=== PATIENT | female | born 1935 | race Caucasian/White ===

== ENCOUNTER 2023-07-16 08:38 | Outpatient (OUT) | payer MEDICARE, OTHER, SELFPAY ==
--- NOTE | 2023-07-16 | XR_ITS ---
The [address] [address] Patient Name: VANE PARIS MRN: [id number] date: 1935 Sex: F Assigned Patient Location: Current Patient Location: Accession/Order Number: [id number] Exam Date: 07/16/2023 09:00 Report Date: 07/16/2023 21:46 At the request of: EFREN GRANADOS Procedure: XR foot LT min 3V EXAM: XR foot LT min 3V HISTORY: LEFT FOOT ULCER COMPARISON: None. TECHNIQUE: 3 views left foot FINDINGS: Diffuse osseous demineralization. No acute fracture or aggressive osseous abnormality. Joint spaces and alignment are preserved. No definite osseous erosion to suggest osteomyelitis. XR/XR foot LT min 3V IMPRESSION: No definite osseous erosion to suggest osteomyelitis. Consider MRI as a more sensitive modality. Electronically authenticated by: NATASHA MA Date: 07/16/2023 21:46
== END 2023-07-16 08:39 | disposition home or self-care (01) ==
LOC: WC 08:38
PROVIDERS: PCP Family Medicine; Visit Provider Podiatrist Foot & Ankle Surgery
DX: L97.421 Non-pressure chronic ulcer of left heel and midfoot limited to breakdown of skin (principal)
CPT/HCPCS: 73630; G0463

== ENCOUNTER 2023-07-30 11:24 | Outpatient (OUT) | payer MEDICARE, OTHER, SELFPAY | END 2023-07-30 11:25 | disposition home or self-care (01) | LOC: WC 11:24 | PROVIDERS: PCP Family Medicine; Visit Provider Podiatrist Foot & Ankle Surgery | DX: L97.421 Non-pressure chronic ulcer of left heel and midfoot limited to breakdown of skin (principal) | CPT/HCPCS: G0463 ==

== ENCOUNTER 2023-09-03 10:23 | Outpatient (OUT) | payer MEDICARE, OTHER, SELFPAY | END 2023-09-03 10:24 | disposition home or self-care (01) | LOC: WC 10:23 | PROVIDERS: PCP Family Medicine; Visit Provider Podiatrist Foot & Ankle Surgery | DX: L97.421 Non-pressure chronic ulcer of left heel and midfoot limited to breakdown of skin (principal) | CPT/HCPCS: 11042 ==

== ENCOUNTER 2023-09-10 14:11 | Outpatient (OUT) | payer MEDICARE, OTHER, SELFPAY ==
--- NOTE | 2023-09-10 14:16 | ECG_ITS ---
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
== END 2023-09-10 14:12 | disposition home or self-care (01) ==
LOC: PST 14:12
PROVIDERS: PCP Family Medicine; Visit Provider Podiatrist Foot & Ankle Surgery
DX: Z01.810 Encounter for preprocedural cardiovascular examination (principal); R22.9 Localized swelling, mass and lump, unspecified
CPT/HCPCS: 93005

== ENCOUNTER 2023-09-20 07:40 | Day surgery (SDC) | payer MEDICARE, OTHER, SELFPAY ==
[2023-09-10 14:37] VITALS: BP 108/73; PULSE 92; RESP 16; TEMP 36; O2SAT 95; BMI 21.6
[2023-09-20] VITALS (10 sets, daily range): BP systolic 134–157; BP diastolic 78–106; PULSE 84–96; RESP 12–20; TEMP 36.3–36.4; O2SAT 94–99
[2023-09-20 08:03] LABS: Glucometer 78 mg/dL (74-106)
--- NOTE | 2023-09-20 08:06 | PC.NURSE ---
TIA on 09/16/2023; all tests negative and no exterminator termite affects
[2023-09-20] MEDS: LACTATED RINGER'S SOLUTION 1,000 ML 50 ML IV (08:18)
[2023-09-20] MEDS: CEFAZOLIN SODIUM/DEXTROSE,ISO 2 GM/50 ML PIGGYBACK IV (09:43)
[2023-09-20] MEDS: LIDOCAINE HCL 1% 100 MG/10 ML MDV INJ (10:12)
[2023-09-20] MEDS: BUPIVACAINE HCL 0.5% PF 50 MG/10 ML VIAL INJ (10:41)
[2023-09-20 11:01] LABS: Glucometer 74 mg/dL (74-106)
--- NOTE | 2023-09-20 11:08 | P.ORON_ITS ---
Brief Operative Note Date of procedure: 09/20/23 Pre-op diagnosis: left foot soft tissue mass with surgical wound Post-op diagnosis: same as pre-op Procedure: PROCEDURES PERFORMED: excision of left foot soft tissue mass of 2 cm, excision of left foot wound with delayed primary closure INTRAOPERATIVE FINDINGS: Preoperative wound measurements 0.9 x 0.2 x 0.2 cm. upon excision of the wound there was viscous fluid encountered mixed with mucinous material which was consistent with sebaceous type cyst versus infection. there was less than 1 cm of surrounding erythema which was faint and did was once the cyst was drained. The cyst did seemingly communicate with the adjacent tarsal joint and was in close proximity of the lateral extensor tendon. PROCEDURE IN DETAIL: Patient was identified in pre op and consent was reviewed. Correct side and site were identified and marked. Pre-op antibiotics were started. Patient was brought to OR suite and place on table in a supine position. General anesthesia was administered. Tourniquet applied. Operative extremity was prepped and draped in usual sterile fashion. Formal time-out was performed and the foot/ankle were elevated for several minutes and the tourniquet was inflated. Utilizing a scalpel, the wound on the left dorsal lateral foot was excised in a 3:1 ellipse. clear viscous mixed with yellow mucinous fluid/material was evacuated. Soft tissue swabs of the fluid was obtained to be sent to microbiology. The cyst and surrounding tissue which was involved was excised and also passed the back table and sent as specimen to pathology. A stalk communicating to the adjacent tarsal joint was identified and was cauterized. The cyst was also adjacent to the lateral extensor tendon but there was no apparent communication with the tendon. Further debridement was performed to healthy granular tissue. surgical site was irrigated with copious amounts of sterile saline. The tourniquet was deflated and a prompt hyperemic response is noted. all remaining tissues did perfuse appropriately. the incision was then c losed in a single layer using skin suture without the need for undermining and was closed without tension. A dry sterile dressing consisting of Xeroform on the incisions followed by 4 x 4 gauze, and Kerlix were applied. an Juan wrap from the forefoot to the distal leg was then loosely applied followed by a surgical shoe Capillary refill time to all digits was evaluated and had appropriate response. Patient tolerated the procedure and anesthesia well transferred to the recovery room with vital signs stable and brisk capillary refill to the toes. POSTOPERATIVE PLAN: Discharge home under family's care Post op instructions provided verbally and written prescription(s) were placed in chart weightbearing as tolerated in surgical shoe for three weeks or until the incision is healed Follow-up in 1 week Implants: none Surgeon: Robert Rodrigues Route Delivery Driver: Keyur Mcdonald Estimated blood loss (mL): 10 Pathology: other (tissue swabs to microbiology and soft tissue mass to pathology) Disposition: PACU Preoperative Details Reason for procedure: patient is an 88-year-old female who underwent excision of a ganglion on her left foot by outside surgeon on 04/08/23. She presents me a couple of months ago relating that the incision never completely healed and regularly has thick clear viscous fluid draining from the wound. Her 1st examination distally was consistent with a ganglion. We initially attempted local wound care however her issue continued to wax and wane and the pain and irritation was affecting activities daily living and she wished to proceed with surgical revision. I recommended excision of the wound and soft tissue mass with delayed primary closure. I educated her and potential risks and benefits and all questions were answered to her satisfaction.
[2023-09-20] MEDS: OXYCODONE HCL/ACETAMINOPHEN 5MG/325MG 1 TAB PO (11:17)
== END 2023-09-20 12:40 | disposition home or self-care (01) ==
PROVIDERS: PCP Family Medicine; Visit Provider Podiatrist Foot & Ankle Surgery
PROC: (CPT 28039; principal; 2023-09-20 08:55)
DX: T81.32XA Disruption of internal operation (surgical) wound, not elsewhere classified, initial encounter (principal); M79.9 Soft tissue disorder, unspecified; M67.472 Ganglion, left ankle and foot; R22.42 Localized swelling, mass and lump, left lower limb; Z87.891 Personal history of nicotine dependence; K21.9 Gastro-esophageal reflux disease without esophagitis; E03.9 Hypothyroidism, unspecified; Z79.82 Long term (current) use of aspirin
CPT/HCPCS: 28039; 36415; 82948; 87070; 87076; 88304; 99999; J2704

== ENCOUNTER 2023-09-28 09:43 | Outpatient (OUT) | payer MEDICARE, OTHER, SELFPAY | END 2023-09-28 09:44 | disposition home or self-care (01) | LOC: WC 09:43 | PROVIDERS: PCP Family Medicine; Visit Provider Podiatrist Foot & Ankle Surgery | DX: L97.421 Non-pressure chronic ulcer of left heel and midfoot limited to breakdown of skin (principal); T81.89XA Other complications of procedures, not elsewhere classified, initial encounter | CPT/HCPCS: G0463 ==

== ENCOUNTER 2023-10-12 09:49 | Outpatient (OUT) | payer MEDICARE, OTHER, SELFPAY | END 2023-10-12 09:50 | disposition home or self-care (01) | LOC: WC 09:50 | PROVIDERS: PCP Family Medicine; Visit Provider Podiatrist Foot & Ankle Surgery | DX: T81.89XA Other complications of procedures, not elsewhere classified, initial encounter (principal) | CPT/HCPCS: G0463 ==

== ENCOUNTER 2023-11-02 10:29 | Outpatient (OUT) | payer MEDICARE, OTHER, SELFPAY ==
--- OUTSIDE RECORDS SUMMARY | 2023-11-02 10:52 | XMS_ITS | CCD ---
Author Name Unknown Address [address] [facility] [address] [place] [address] Organization [facility] Care Team Providers Care Check Out Clerk Name Role Phone CARMINA, SUHA M Primary Care Physician Carmina, Suha Unavailable Carmina, DO Suha M. Primary Care Provider Carmina, DO Suha M. Attending Provider [phone] Carmina, DO Suha M. Primary Care Provider MD Glory Blake Attending Provider Glory Blake Attending Unavailable Petitti, Glory Manuel Admitting Unavailable Carmina, Suha M. Primary Care Unavailable Carmina, Suha M. Admitting Unavailable Carmina, Suha M. Attending Unavailable Carmina, Suha M. Primary Care Unavailable DAVID ZAVALA Attending Unavailabl e CARMINA, SUHA M Admitting Unavailable CARMINA, SUHA M Attending Unavailable CARMINA, SUHA M Attending Unavailable CARMINA, SUHA M Admitting Unavailable Dolce Adelfo Singh Admitting Unavailable Dolce, Adelfo Singh Attending Unavailable ALAHMAD, Alaa Admitting Unavailable ALAHMAD, Alaa Attending Unavailable Miller Waggoner. Attending Unavailable DAVID ZAVALA Admitting Unavailabl e DAVID ZAVALA Attending Unavailabl e CARMINA, SUHA M Admitting Unavailable CARMINA, SUHA M Attending Unavailable CARMINA, SUHA M Referring Unavailable Allergies Allergy Classification Reported Allergen(s) Allergy Type Date of Onset Reaction(s) Facility (20 sources) Alendronate; Translations: [alendronate] Drug Allergy constipation [facility] (10 sources) influenza A virus A/[place]/GP190 06/2015 (H1N1) antigen / influenza A virus A/[place]/GP205 (H3N2) antigen / influenza B virus B/Mares antigen / influenza B virus B/ antigen; Translations: [influenza virus vaccine] Drug Allergy Diarrhea [facility] (5 sources) Pneumococcal Vaccines; Translations: [pneumococcal vaccines] Drug allergy arm swelling [facility] (14 sources) flu shot Propensity to adverse reactions vomiting and diarrhea [facility] Other (1 source) Vaccine product containing only Streptococcus pneumoniae antigen (medicinal product) Drug allergy arm swelling [facility] Other (9 sources) Vaccine product containing Streptococcus pneumoniae antigen (medicinal product) Drug allergy arm swelling [facility] Other (3 sources) Streptococcus pneumoniae capsular polysaccharide antigen (substance); Translations: [pneumococcal vaccines] Drug allergy Persistent erythema (finding), Swelling (morphologic abnormality) [facility] (1 source) No Known Medication Allergies; Translations: [No Known Medication Allergies] Propensity to adverse reactions (disorder) [facility] Medications Current Medications Medication Drug Class(es) Dates Sig (Normalized) Sig (Original) 8 hr acetaminophen 650 mg extended release oral tablet (20 sources) Start: 06-08-2022 take 1 tablet by mouth every eight hours as needed for pain Tylenol 8 Hour Caplet 650 mg oral tablet, extended release 650 mg = 1 tab(s), Oral, q8hr, PRN as needed for pain, Refills(s) 0 Start Date: 06/08/22 Status: Ordered Acetaminophen 8 Hour 650 MG 2 tablets as needed Orally at HS Active acetaminophen 325 mg / traMADol hydrochloride 37.5 mg oral tablet (2 sources) Opioid Agonist Start: 02-05-2018 take 1 tablet by mouth every four hours as needed for pain Ultracet 325 mg-37.5 mg Tab 1 tab(s), Oral, q4hr as needed for pain, 10 tab(s), Refill(s) 0 Start Date: 02/05/18 Status: Ordered aspirin 81 mg oral tablet (20 sources) Platelet Aggregation Inhibitor, Nonsteroidal Anti-inflammatory Drug Start: 04-05-2015 take 1 tablet by mouth once daily aspirin 81 mg oral tablet 81 mg = 1 tab(s), Oral, Daily, Refills(s) 0, Prophylaxis Start Date: 04/05/15 Status: Ordered take 1 tablet by [facility] every twenty-four hours Aspirin 81 MG 1 tablet Orally Once a day Active benzonatate 100 mg oral capsule (2 sources) Non-narcotic Antitussive Start: 10-10-2023 End: 10-17-2023 take 1 capsule by mouth three times daily Tessalon 100 mg Cap 100 mg = 1 cap(s), Oral, TID, X 7 day(s), # 21 cap(s), Refills(s) 0, Pharmacy: [facility], 154.9, cm, 10/10/23 10:01:00 EST, Height/Length Dosing, 50.2, kg, 10/10/23 10:01:00 EST, Weight Dosing Start Date: 10/10/23 Stop Date: 10/17/23 Status: Ordered celecoxib 200 mg oral capsule (2 sources) Nonsteroidal Anti-inflammatory Drug Start: 02-05-2018 take 1 capsule by mouth once daily CeleBREX 200 mg Cap 200 mg = 1 cap(s), Oral, Daily, # 6 cap(s), Refills(s) 0 Start Date: 02/05/18 Status: Ordered cephalexin 500 mg oral capsule (4 sources) Cephalosporin Antibacterial Start: 10-10-2023 cephalexin 500 mg Cap Refills(s) 0 Start Date: 10/10/23 Status: Ordered Start: 09-13-2023 End: 09-20-2023 take 1 capsule by mouth every twelve hours cephalexin 500 mg Cap 500 mg = 1 cap(s), Oral, q12hr, X 7 day(s), Refills(s) 0 Start Date: 09/13/23 Stop Date: 09/20/23 Status: Ordered Start: 06-26-2023 take 1 capsule by [facility] every twelve hours Keflex 500 mg Cap 500 mg = 1 cap(s), Oral, q12hr, # 20 cap(s), Refills(s) 0, Pharmacy: [facility], 155, cm, 06/26/23 16:10:00 EDT, Height/Length Dosing, 53.8, kg, 06/26/23 16:10:00 EDT, Weight Dosing Start Date: 06/26/23 Status: Ordered chlorpheniramine maleate 4 mg oral tablet (13 sources) Histamine-1 Receptor Antagonist take 1 tablet by mouth every six hours Allergy 4 MG 1 tablet as needed Orally every 6 hrs Active cholecalciferol 0.05 mg oral tablet (13 sources) Vitamin D take 1 tablet by mouth every twenty-four hours Vitamin D 50 MCG (1999 UT) 1 tablet Orally Once a day Active doxycycline hyclate 100 mg oral capsule (2 sources) Tetracycline-class Drug Start: End: take 1 capsule by mouth twice daily doxycycline hyclate 100 mg Cap 100 mg = 1 cap(s), Oral, BID, X 7 day(s), # 14 cap(s), Refills(s) 0, Pharmacy: [facility], 154.9, cm, 10/10/23 10:01:00 EST, Height/Length Dosing, 50.2, kg, 10/10/23 10:01:00 EST, Weight Dosing Start Date: 10/10/23 Stop Date: 10/17/23 Status: Ordered Fish Oils (2 sources) Start: take 1 capsule by mouth once daily Fish Oil 1000 mg oral capsule 1,000 mg = 1 cap(s), Oral, Daily, Refills(s) 0, Prophylaxis Start Date: 04/05/15 Status: Ordered Ibuprofen (6 sources) Nonsteroidal Anti-inflammatory Drug Start: take 1 tablet by mouth once daily at bedtime Ibuprofen PM 1 tab, Oral, Once a day (at bedtime) Insomnia, Refill(s) 0, Insomnia Start Date: 04/05/15 Status: Ordered levothyroxine sodium 0.025 mg oral tablet (19 sources) l-Thyroxine Start: take 1 tablet by mouth once daily levothyroxine 25 mcg (0.025 mg) Tab 25 mcg = 1 tab(s), Oral, Daily, # 30 tab(s), Refills(s) 0 Start Date: 09/16/23 Status: Ordered take 1 tablet by eleonora th every twenty-four hours Levothyroxine Sodium 25 MCG 1 tablet Orally Once a day for 90 days Active take 1 tablet by mouth every oth er day Levothyroxine Sodium 25 MCG 1 tablet Orally every other day for 90 days Not-Taking meclizine hydrochloride 12.5 mg oral tablet (4 sources) Antiemetic Start: 06-08-2022 take 1 tablet by mouth three times daily as needed for dizziness meclizine 12.5 mg Tab 12.5 mg = 1 tab(s), Oral, TID, PRN for dizziness, # 20 tab(s), Refills(s) 0, Pharmacy: [facility], 154, cm, 06/08/22 11:30:00 EDT, Height/Length Dosing, 52, kg, 06/08/22 11:30:00 EDT, Weight Dosing Start Date: 06/08/22 Status: Ordered Multi Vitamins oral tablet (3 sources) Start: 09-16-2023 Multi Vitamins oral tablet 1 tab(s), Oral, Daily, 30 tab(s), Refill(s) 0 Start Date: 09/16/23 Status: Ordered Multivitamin preparation (7 sources) take 1 tablet by mouth once daily Multivitamin - 1 tablet Orally Once a day Active 12 hr orphenadrine citrate 100 mg extended release oral tablet (2 sources) Muscle Relaxant Start: 09-20-2018 take 1 tablet by mouth twice daily for muscle spasms orphenadrine 100 mg ER Tab 100 mg = 1 tab(s), Oral, BID, For spasm and tenderness, # 10 tab(s), Refills(s) 0 Start Date: 09/20/18 Status: Ordered POLYETHYLENE GLYCOL 3350 (14 sources) Osmotic Laxative take 0.5 capsule by mouth once daily MiraLax - 1/2 cap Orally Once a day Active MiraLax - as dir ected Orally prn Active MiraLax - as dir ected Orally Active vitamin b12 1 mg oral tablet (8 sources) Vitamin B12 Start: 09-16-2023 cyanocobalamin 1000 mcg Tab 1,000 mcg = 1 tab(s), Oral, TueThSaSu, # 90 tab(s), Refills(s) 0 Start Date: 09/16/23 Status: Ordered Start: 06-08-2022 cyanocobalamin 1000 mcg oral tablet 1,000 mcg = 1 tab(s), Oral, MonTuThSa, # 30 tab(s), Refills(s) 0 Start Date: 06/08/22 Status: Ordered Start: 06-08-2022 cyanocobalamin 1000 mcg oral tablet 1,000 mcg = 1 tab(s), Oral, MonTuThSa, # 30 tab(s), Refills(s) 0 Start Date: 06/08/22 Status: Ordered take 1 tablet by eleonora th every other day Vitamin B12 1000 MCG 1 tablet Orally every other day Active Vitamin B12 1000 MCG (13 sources) take 1 tablet by eleonora th every other day Vitamin B12 1000 MCG 1 tablet Orally every other day Active take 1 tablet by mouth once asya y Vitamin B12 1000 MCG 1 tablet Orally Once a day Active Vitamin D 400 IU (9 sources) Start: 04-05-2015 Vitamin D 400 IU 400 International_Unit, Oral, Daily, Refills(s) 0, Prophylaxis Start Date: 04/05/15 Status: Ordered Completed/Discontinued Medications Medication Drug Class(es) Dates Sig (Normalized) Sig (Original) B-12 - up to 1000 mcg (20 sources) Start: 04-12-2019 B-12 - up to 1000 mcg Apr, 1 mL Start: 03-10-2019 B-12 - up to 1 000 mcg March, 1000 mcg Start: 02-08-2019 B-12 - up to 1 000 mcg Jan, 1000 mcg Problems Active Problems Problem Classification Problem Date Documented Date Episodic/Chronic Acute bronchitis (3 sources) Acute bronchitis; Translations: [Acute bronchitis, unspecified] Onset: 10-10-2023 Episodic Bacterial infection; unspecified site (1 source) Bacterial infectious disease; Translations: [Other specified bacterial agents as the cause of diseases classified elsewhere] Onset: 10-10-2023 Episodic Cancer; other and unspecified primary (2 sources) H/O Malignant melanoma 10-10-2023 Episodic Chronic ulcer of skin (2 sources) 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 Conditions associated with dizziness or vertigo (16 sources) Dizziness; Translations: [Dizziness and giddiness] Onset: 04-09-2022 Resolved: 04-09-2022 Episodic Delirium, dementia, and amnestic and other cognitive disorders (1 source) Postconcussion syndrome; Translations: [Postconcussional syndrome] Onset: 06-08-2022 Chronic Disorders of lipid metabolism (18 sources) Pure hypercholesterolemia; Translations: [Pure hypercholesterolemia, unspecified] Onset: 09-16-2023 Chronic E Codes: Fall (1 source) Fall; Translations: [Unspecified fall, initial encounter] Onset: 05-26-2022 Episodic E Codes: Fall (9 sources) Fall 12-05-2019 Esophageal disorders (14 sources) Gastroesophageal reflux disease without esophagitis; Translations: [Gastro-esophageal reflux disease without esophagitis] Chronic Genitourinary congenital anomalies (14 sources) Renal agenesis and dysgenesis; 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, 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 Malaise and fatigue (14 sources) Fatigue; Translations: [Chronic fatigue, unspecified] Onset: 05-29-2022 Resolved: 05-29-2022 Chronic Malaise and fatigue (1 source) Other fatigue Episodic Mycoses (14 sources) Onychomycosis; Translations: [Tinea unguium] Episodic Nutritional deficiencies (16 sources) Vitamin D deficiency; Translations: [Vitamin D deficiency, unspecified] Onset: 04-09-2022 Resolved: 04-09-2022 Chronic Nutritional deficiencies (14 sources) Cobalamin deficiency; Translations: [Deficiency of other specified B group vitamins] Episodic Open wounds of extremities (7 sources) Open wound of left foot; Translations: [Unspecified open wound, left foot, initial encounter] Onset: 06-26-2023 Episodic Osteoarthritis (2 sources) Arthritis 10-10-2023 Chronic Other connective tissue disease (14 sources) Recurrent falls ; Translations: [Repeated falls] Episodic Other ear and sense organ disorders (14 sources) Hearing loss; Translations: [Unspecified hearing loss, right ear] Chronic Other ear and sense organ disorders (2 sources) Deafness of right ear 10-10-2023 Chronic Other hereditary and degenerative nervous system conditions (14 sources) Essential tremor; Translations: [Essential tremor] Chronic Other injuries and conditions due to external causes (2 sources) Injury of head; Translations: [Unspecified injury of head, initial encounter] Onset: 05-26-2022 Episodic Other upper respiratory infections (5 sources) Acute sinusitis, unspecified; Translations: [Acute bacterial sinusitis] Onset: 10-10-2023 Episodic Residual codes; unclassified (14 sources) Difficulty sleeping ; Translations: [Sleep disorder, unspecified] Episodic Substance-related disorders (9 sources) Smoker 02-05-2018 Chronic Comment on above: Added secondary to d ocumentation in Social History. 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, unspecified] Onset: 09-16-2023 12-05-2019 Chronic Unclassified (1 source) Infection following a procedure, superficial incisional surgical site, initial encounter; Translations: [Infection following a procedure, superficial incisional surgical site, initial encounter] Onset: 11-23-2022 Unclassified (2 sources) H/O: Bilateral cataract extraction 10-10-2023 Unclassified (2 sources) Open wound of left foot Onset: 06-26-2023 10-10-2023 Past or Other Problems Problem Classification Problem Date Documented Da te Episodic/Chronic Intracranial injury (1 source) Concussion without loss of consciousness, initial encounter Onset: 06-15-2022 Resolved: 06-15-2022 Episodic Spondylosis; intervertebral disc disorders; other back problems (1 source) Cervicalgia; Translations: [Cervicalgia] Onset: 07-09-2022 Episodic Sprains and strains (2 sources) Neck sprain; Translations: [Sprain of joints and ligaments of unspecified parts of neck, initial encounter] Onset: 05-26-2022 Resolved: 06-15-2022 Episodic Results Test Name Value Interpretation Reference Range Facility Family Medicine Office/Clini c Noteon 10-10-2023 Family Medicine Office/Clinic Note Chief Complaint New pt HPI Staff Vane, 88 yo female here today with cough, runny nose, phlegm Symptoms began 09/27 Complains of cough, runny nose, sore throat, pressure in ears when coughing, fever, chills, fatigue Pt states cough feels better today Pt has been taking cefalexin Pt had surgery on foot 09/20 History of Present Illness Reviewed and agree with above documented HPI by biomedical engineering professor. Portions of this record may have been created with voice recognition artificial intelligence software, specifically [employer], [employer] and or [employer]. Substitutions may have occurred due to the inherent limitations of voice recognition and artificial intelligence software. Patient is a 88-year-old female who presents to [facility], with her son, with sinus issues, sinus pressure, sore throat, bilateral ear pressure, and a nonproductive cough with fatigue, that started on September 27, 2023, patient states currently on Keflex, for foot surgical procedure that was done, talk to her primary care doctor they informed her just continue with the Keflex, relief, then she was placed on cefadroxil, not have any relief with this antibiotics as well. Patient denies having any worsening fevers, chills, worsening headache of her life, dizziness, nausea or vomiting, difficulty swallowing, productive cough, chest pain, dyspnea exertion, or weakness. Review of Systems PHQ Score Initial Depression Screen Score: 0 SCORE Physical Exam Vitals & Measurements T: 36.4 ?C(Oral) HR: 96(Peripheral) BP: 106/62 SpO2: 96% HT: 61 in HT: 154.9 cm WT: 50.2 kg WT: 110.44 lb BMI: 20.92 General: Well developed, well nourished, in no acute distress, patient does appears ill but not septic, no respiratory distress is noted. Patient answers questions appropriately and in complete sentences, and follows commands appropriately. No facial droop, slurred speech, or difficulty swallowing is noted. Head: Normocephalic/atrauma tic, positive bilateral maxillary and positive bilateral frontal sinus tenderness and pressure with palpation. No facial swelling cellulitis. Eyes: Pupils equal, round, and reactive to light. Conjunctivae and sclerae normal, Ears: Bilateral TMs are bulging, left greater than right, no signs otitis media otitis externa. Prominent hearing loss on the right. Left hearing is intact. Nose: No deformity, discharge, inflammation, or lesions Mouth: Mucous membranes moist. Normal oropharynx, and posterior pharynx without erythremia, lesions, exudates, or enlarged tonsils. No trismus or difficulty swallowing is noted. Neck: Neck supple. No masses or palpable cervical nodes. Trachea midline. No mastoid tenderness. Lungs: Normal respiratory effort and clear to auscultation throughout, no wheezing, rales, crackles, or decreased breath sounds. Cardio: regular rate and rhythm, no murmur, no chest wall tenderness. Extremity: Patient is able to move all 4 extremities equally without any pain or weakness. Neurologic: Grossly normal Skin: No rashes, ulcerations, or suspicious lesions Lymph Nodes: no lad Mental Status: alert, active Assessment/Plan Discuss with patient and her son she is negative for COVID-19 and patient and imaging findings read by the radiologist: There are no acute cardiopulmonary changes . 88-year-old female presented to [facility], for acute bacterial sinusitis, acute bronchitis, symptoms started 2 weeks ago, was on Keflex for a foot surgical procedure, did not do well with Keflex, continue symptoms, patient did appear ill but not septic, no difficulty swallowing, and no respiratory distress, no breathing treatment or steroids were indicated at this time. Patient was given a prescription for doxycycline and Tessalon Perles, instructed to monitor her temperature, take [id number] Tylenol as needed for fevers and bodyaches, drink plenty water stay hydrated, follow-up primary care provider. 1. Acute bacterial sinusitis (J01.90: Acute sinusitis, unspecified) See above Ordered: doxycycline, 100 mg = 1 cap(s), Oral, BID, X 7 day(s), # 14 cap(s), Refills(s) 0, Pharmacy: [facility], 154.9, cm, 10/10/23 10:01:00 EST, Height/Length Dosing, 50.2, kg, 10/10/23 10:01:00 EST, Weight Dosing Rapid COVID POC 85992 Rapid COVID POC 41466 2. Acute bronchitis (J20.9: Acute bronchitis, unspecified) See above Ordered: benzonatate, 100 mg = 1 cap(s), Oral, TID, X 7 day(s), # 21 cap(s), Refills(s) 0, Pharmacy: [facility], 154.9, cm, 10/10/23 10:01:00 EST, Height/Length Dosing, 50.2, kg, 10/10/23 10:01:00 EST, Weight Dosing Rapid COVID POC 60903 XR Chest 2 Views Other specified bacterial agents as the cause of diseases classified elsewhere (B96.89: Other specified bacterial agents as the cause of diseases classified elsewhere) Follow-up With When Contact Information SUHA GREWAL DO, [facility] [address], [facility] [address] [place] [address]- Additional Instructions: Patient (more content not included)... Normal [facility] Comment on above: Result Comment: Elec tronically Signed By: SALLY HERNANDEZ, KERVIN\.br\Date and Time Signed: 10/10/23 11:07 EST Patient Educationon 10-10-20 Patient Education Infectious Disease Sinus Infection, Adult A sinus infection is soreness and swelling (inflammation) of your sinuses. Sinuses are hollow spaces in the bones around your face. They are located: ? Around your eyes. ? In the middle of your forehead. ? Behind your nose. ? In your cheekbones. Your sinuses and nasal passages are lined with a fluid called mucus. Mucus drains out of your sinuses. Swelling can trap mucus in your sinuses. This lets germs (bacteria, virus, or fungus) grow, which leads to infection. Most of the time, this condition is caused by a virus. What are the causes? ? Allergies. ? Asthma. ? Germs. ? Things that block your nose or sinuses. ? Growths in the nose (nasal polyps). ? Chemicals or irritants in the air. ? A fungus. This is rare. What increases the risk? ? Having a weak body defense system (immune system). ? Doing a lot of swimming or diving. ? Using nasal sprays too much. ? Smoking. What are the signs or symptoms? The main symptoms of this condition are pain and a feeling of pressure around the sinuses. Other symptoms include: ? Stuffy nose (congestion). This may make it hard to breathe through your nose. ? Runny nose (drainage). ? Soreness, swelling, and warmth in the sinuses. ? A cough that may get worse at night. ? Being unable to smell and taste. ? Mucus that collects in the throat or the back of the nose (postnasal drip). This may cause a sore throat or bad breath. ? Being very tired (fatigued). ? A fever. How is this diagnosed? ? Your symptoms. ? Your medical history. ? A physical exam. ? Tests to find out if your condition is short-term (acute) or long-term (chronic). Your doctor may: ? Check your nose for growths (polyps). ? Check your sinuses using a tool that has a light on one end (endoscope). ? Check for allergies or germs. ? Do imaging tests, such as an MRI or CT scan. How is this treated? Treatment for this condition depends on the cause and whether it is short-term or long-term. ? If caused by a virus, your symptoms should go away on their own within 10 days. You may be given medicines to relieve symptoms. They include: ? Medicines that shrink swollen tissue in the nose. ? A spray that treats swelling of the nostrils. ? Rinses that help get rid of thick mucus in your nose (nasal saline washes). ? Medicines that treat allergies (antihistamines). ? Mgpf-wvm-mggyral pain relievers. ? If caused by bacteria, your doctor may wait to see if you will get better without treatment. You may be given antibiotic medicine if you have: ? A very bad infection. ? A weak body defense system. ? If caused by growths in the nose, surgery may be needed. Follow these instructions at home: Medicines ? Take, use, or apply [id number] and prescription medicines only as told by your doctor. These may include nasal sprays. ? If you were prescribed an antibiotic medicine, take it as told by your doctor. Do not stop taking it even if you start to feel better. Hydrate and humidify ? Drink enough water to keep your pee (urine) pale yellow. ? Use a cool mist humidifier to keep the humidity level in your home above 50%. ? Breathe in steam for 10?15 minutes, 3?4 times a day, or as told by your doctor. You can do this in the bathroom while a hot shower is running. ? Try not to spend time in cool or dry air. Rest ? Rest as much as you can. ? Sleep with your head raised (elevated). ? Make sure you get enough sleep each night. General instructions ? Put a warm, moist washcloth on your face 3?4 times a day, or as often as told by your doctor. ? Use nasal saline washes as often as told by your doctor. ? Wash your hands often with soap and water. If you cannot use soap and water, use hand photography coordinator. ? Do not smoke. Avoid being around people who are smoking (secondhand smoke). ? Keep all follow-up visits. Contact a doctor if: ? You have a fever. ? Your symptoms get worse. ? Your symptoms do not get better within 10 days. Get help right away if: ? You have a very bad headache. ? You cannot stop vomiting. ? You have very bad pain or swelling around your face or eyes. ? You have trouble seeing. ? You feel confused. ? Your neck is stiff. ? You have trouble breathing. These symptoms may be an emergency. Get help right away. Call 911. ? Do not wait to see if the symptoms will go away. ? Do not drive yourself to the hospital. Summary ? A sinus infection is swelling of your sinuses. Sinuses are hollow spaces in the bones around your face. ? This condition is caused by tissues in your nose that become inflamed or swollen. This traps germs. These can lead to infection. ? If you were prescribed an antibiotic medicine, take it as told by your doctor. Do not stop taking it even if you start to feel better. ? Keep all follow-up visits (more content not included)... Normal [facility] XR Chest 2 Viewson 3 XR Chest 2 Views Exam Date/Time: 10/10/2023 10:41 EST Reason for Exam: Cough Report IMPRESSION: There are no acute cardiopulmonary changes. CLINICAL HISTORY: Cough EXAMINATION: XR Chest 2 Views COMPARISON: Chest x-ray from 12/05/2019 FINDINGS: The cardiomediastinal silhouette is unremarkable. The lungs are free of infiltrates effusions or consolidations. There is a calcified granuloma in the midportion of the right lung. There are no acute osseous changes. Ordering Provider: KERVIN ZAVALA FINAL REPORT Dictated: 10/10/2023 10:48 am Maurizio Samaniego MD, V. Signed (Electronic Signature): 10/10/2023 10:48 am Signed by: Maurizio Samaniego MD, V. Transcribed by: RADHA Technologist: ALONSO Technical Comments Radiation Dose: Ka,r in mGy = na DAP = na Normal [facility] Insurance Correspondence Off iceon 09-20-2023 Insurance Correspondence Office [id number]# 1.00TIFF Normal [facility] CHEMISTRYOrdered By: SYSTEM SYSTEM on 09-17-2023 Cholesterol [Mass/Vol] 185 mg/dL Normal 120 - 200 mg/dL [facility] Remisol Cholesterol in HDL [Mass/Vol] 37 mg/dL Invalid Interpretation Code [facility] Remisol Comment on above: Interpretive Data: H DL > or equal to 60 mg/dL: Low cardiovascular risk HDL < 40 mg/dL : High cardiovascular risk Cholesterol in LDL [Mass/Vol] 125 mg/dL Normal <=129mg/dL [facility] Remisol Cholesterol in VLDL [Mass/Vol] 18 mg/dL Normal 7 - 40 mg/dL [facility] Remisol Triglyceride [Mass/Vol] 88 mg/dL Normal <=149mg/dL [facility] Remisol Discharge Instructionson Discharge Instructions [id number]# 1.00TIFF Normal [facility] Discharge Note-Nursingon Discharge Note-Nursing VANE PARIS :1935 Visit Date:09/16/2023 Inpatient Discharge Instructions Your Care Team Admitting Physician - Diane SILVA MD Reason for Your Visit Pt was at [facility]. When she went to get her hair washed in the sink her neck cracked on the sink's bowl. She reported feeling a fullness in her head and dizzy upon standing. After sitting down for a while she went to get up and was too weak. Your Diagnosis Dizziness of unknown cause Hyperthyroidism TIA - Transient ischaemic attack Hyperlipidemia Altered gait Medical screening exam Neck pain Tests Performed Automated Diff BMP CBC w/ Auto Diff eGFR Lipid Panel PT & PTT Urinalysis with Culture Reflex Cervical Spine CT w/o Contrast CTA Head CTA Neck MRI Brain w/o Contrast This Is Your Medications List acetaminophen (Tylenol 8 Hour Caplet 650 mg oral tablet, extended release) aspirin (aspirin 81 mg oral tablet) cephalexin (cephalexin 500 mg Cap) cholecalciferol (Vitamin D 400 IU) cyanocobalamin (cyanocobalamin 1000 mcg Tab) levothyroxine (levothyroxine 25 mcg (0.025 mg) Tab) multivitamin (Multi Vitamins oral tablet) Procedure History left eye cataract extraction with intraocular lens placement. manual dilatation of the iris with a Malyugin ring (05/27/2015), right cataract extraction with intraocular lens placement (04/08/2015). Discharge Vitals Temperature (Axillary) 36.4 ?C Heart Rate (Monitored) 88 Respiratory Rate 20 Blood Pressure 128/77 Height 154.92 cm Weight 54.9 kg BMI 22.87 What to do next Instructions From Your Doctor Event Name Event Result Discharge Activity Ambulate as tolerated Discharge Restrictions No restrictions Discharge Diet(s) Regular Pending Diagnostic Test Results None Pharmacy Information [facility] New Follow Up Appointments after Discharge Follow Up with SUHA GREWAL When: 09/28/2023 01:00 PM EST Where: [address] [facility] [address] [place] [address]- Business (1) Medications What How Much When Instructions Next Dose Unchanged acetaminophen (Tylenol 8 Hour Caplet 650 mg oral tablet, extended release) 1 Tablets By Mouth Every 8 hours as needed for as needed for pain as needed Unchanged aspirin (aspirin 81 mg oral tablet) 1 Tablets By Mouth Every day resume normal schedule Unchanged cephalexin (cephalexin 500 mg Cap) 1 Capsules By Mouth Every 12 hours Duration: 7 Days resume normal schedule Unchanged cholecalciferol (Vitamin D 400 IU) 400 International unit By Mouth Every day resume normal schedule Unchanged cyanocobalamin (cyanocobalamin 1000 mcg Tab) 1 Tablets By Mouth Wednesday, , Wednesday & Wednesday resume normal schedule Unchanged levothyroxine (levothyroxine 25 mcg (0.025 mg) Tab) 1 Tablets By Mouth Every day resume normal schedule Unchanged multivitamin (Multi Vitamins oral tablet) 1 Tablets By Mouth Every day 09/18 @ 9am Test Results CBC BMP WBC: 5.7 E9/L (09/16/23 12:13:00) Glucose Lvl: 94 mg/dL (09/16/23 12:13:00) RBC: 5 E12/L (09/16/23 12:13:00) BUN: 20 mg/dL (09/16/23 12:13:00) HGB: 14.4 gm/dL (09/16/23 12:13:00) Creatinine: 0.9 mg/dL (09/16/23 12:13:00) Hct: 42.3 % (09/16/23 12:13:00) BUN/Creat Ratio: 22 High (09/16/23 12:13:00) MCV: 85.1 fL (09/16/23 12:13:00) Sodium Lvl: 138 mmol/L (09/16/23 12:13:00) MCH: 29 pg (09/16/23 12:13:00) Potassium Lvl: 4 mmol/L (09/16/23 12:13:00) MCHC: 34 gm/dL (09/16/23 12:13:00) Chloride: 103 mmol/L (09/16/23 12:13:00) RDW: 13.3 % (09/16/23 12:13:00) CO2: 25 mmol/L (09/16/23 12:13:00) Platelet: 158 E9/L (09/16/23 12:13:00) AGAP: 14 mEq/L (09/16/23 12:13:00) MPV: 8.2 fL (09/16/23 12:13:00) Calcium Lvl: 9.5 mg/dL (09/16/23 12:13:00) Allergies Fosamax (unk) Influenza Virus Vaccine (Diarrhea) pneumococcal vaccines (Persistent redness of skin, Swelling) Problems Ongoing - Any problem that you are currently receiving treatment for. Fall Hyperthyroidism Smoker TIA - Transient ischaemic attack Education Materials Dizziness Dizziness is a common problem. It is a feeling of unsteadiness or light-headedness. You may feel like you are about to faint. Dizziness can lead to injury if you stumble or fall. Anyone can become dizzy, but dizziness is more common in older adults. This condition can be caused by a number of things, including medicines, dehydration, or illness. Follow these instructions at home: Eating and drinking ? Drink enough fluid to keep your urine pale yellow. This helps to keep you from becoming dehydrated. Try to drink more clear fluids, such as water. ? Do not drink alcohol. ? Limit your caffeine intake if told to do so by your health care provider. Check ingredients and nutrition facts to see if a food or beverage contains caffeine. ? Limit your salt (sodium) intake if told to do so by your health care provider. Check ingredie (more content not included)... Normal [facility] Inpatient Clinical Summaryon 09-17-2023 Inpatient Clinical Summary [place] [id number] Clinical Summary Person Information: Name: VANE PARIS Age: 88 Years : 1935 Sex: Female PCP: SUHA GREWAL DO Marital Status: Phone: [phone] Race: White Ethnicity: Non- or Language: Eritrean Visit Id: Visit Reason: Altered gait; Medical screening exam; Neck pain; NECK PAIN Speciality: Acuity: Enc Type: Observation Med Service: Medical Arrival: 09/16/2023 11:36:11 Discharge: Dispo Type: Admitted as IP to this Hosp Address: [address] [place] [address] [address] [facility] [id number] Provider Notes: Diagnosis: 1:Dizziness of unknown cause; 2:Hyperthyroidism; 3:TIA - Transient ischaemic attack; 4:Hyperlipidemia Problems Active Hyperthyroidism Fall TIA - Transient ischaemic attack Smoker Smoking Status: Former Smoker Functional Status: Sensory Deficits: Hearing deficit, right ear History of Falls: Mobility Assistance Prior to Admission: Independent ADLs: Independent Current Level of Assistance for Self-Care/Mobility: Cognitive Status: Oriented x 3 Allergies Fosamax (unk) Influenza Virus Vaccine (Diarrhea) pneumococcal vaccines (Swelling) (Persistent redness of skin) Measurements: Height: 154.92 cm Weight: 54.9 kg Blood Pressure: 128 mmHg / 77 mmHg BMI: 22.87 kg/m2 Procedures No Procedures Documented Immunizations No Immunizations Documented This Visit Final Med List: acetaminophen (Tylenol 8 Hour Caplet 650 mg oral tablet, extended release) 1 Tablets By Mouth every 8 hours as needed as needed for pain. aspirin (aspirin 81 mg oral tablet) 1 Tablets By Mouth every day. cephalexin (cephalexin 500 mg Cap) 1 Capsules By Mouth every 12 hours for 7 Days. cholecalciferol (Vitamin D 400 IU) 400 International unit By Mouth every day. cyanocobalamin (cyanocobalamin 1000 mcg Tab) 1 Tablets By Mouth Wednesday, , Wednesday & Wednesday. levothyroxine (levothyroxine 25 mcg (0.025 mg) Tab) 1 Tablets By Mouth every day. multivitamin (Multi Vitamins oral tablet) 1 Tablets By Mouth every day. Care Team Members: Attending Physician: Diane SILVA MD Consulting Physician: Referring Physician: Follow up: With: Address: When: SUHA GREWAL [address] [place] [id number] Business (1) 09/28/2023 1:00 PM Patient Education Information: Dizziness Normal [facility] Inpatient Patient Summaryon 09-17-2023 Inpatient Patient Summary [address] [address] Patient Discharge Instructions PERSON INFORMATION Name: VANE PARIS Date of : 1935 Current Date: 09/17/2023 14:40:29 PHYSICIANS Admitting Physician: SHIRA BAIRD, Diane Primary Care Physician: SUHA GREWAL DO PCP Comment: Discharge Diagnosis: 1:Dizziness of unknown cause; 2:Hyperthyroidism; 3:TIA - Transient ischaemic attack; 4:Hyperlipidemia Condition at Discharge: Stable VANE PARIS has been given the following list of follow-up instructions, prescriptions, and patient education materials: PATIENT FOLLOW-UP INFORMATION Diet: Regular Discharge Activity: Ambulate as tolerated Discharge Restrictions: No restrictions Wound Care Instructions: Remove Your Dressing In Days Call Your Doctor For: IF UNABLE TO CONTACT YOUR PHYSICIAN AND YOU FEEL IT IS AN EMERGENCY, GO TO THE NEAREST EMERGENCY ROOM OR CALL 911 Home Treatment: Devices/Equipment: None Special Services: Additional Instructions: Primary Care Physician to provide the following pending test results: None Follow up: With: Address: When: SUHA Selby [address] [address] Business (1) 09/28/2023 1:00 PM In the event that this physician does not participate in your insurance network, please consult with your insurance company to find a nearby participating provider. Comment: IRAINA DONNA L, have received the attached patient education materials/instruction s and have verbalized understanding: Patient Signature Date Clinican/Nurse Signature Date HERE ARE THE MEDICATION CHANGES THAT OCCURRED DURING YOUR HOSPITAL STAY Medications to Continue with No Changes Other Medications acetaminophen (Tylenol 8 Hour Caplet 650 mg oral tablet, extended release) 1 Tablets By Mouth every 8 hours as needed as needed for pain. Last Dose: ____Next Dose: ____ aspirin (aspirin 81 mg oral tablet) 1 Tablets By Mouth every day. Last Dose: ____Next Dose: ____ cephalexin (cephalexin 500 mg Cap) 1 Capsules By Mouth every 12 hours for 7 Days., for 7 days starting 09/13/23 Last Dose: ____Next Dose: ____ cholecalciferol (Vitamin D 400 IU) 400 International unit By Mouth every day. Last Dose: ____Next Dose: ____ cyanocobalamin (cyanocobalamin 1000 mcg Tab) 1 Tablets By Mouth Wednesday, , Wednesday & Wednesday. Last Dose: ____Next Dose: ____ levothyroxine (levothyroxine 25 mcg (0.025 mg) Tab) 1 Tablets By Mouth every day., Daily at 8 PM Last Dose: ____Next Dose: ____ multivitamin (Multi Vitamins oral tablet) 1 Tablets By Mouth every day. Last Dose: ____Next Dose: ____ Comment: MEDICATION LIST PROVIDED FOR YOU IS A LIST OF YOUR CURRENT MEDICATIONS. PLEASE CARRY THIS WITH YOU AT ALL TIMES. acetaminophen (Tylenol 8 Hour Caplet 650 mg oral tablet, extended release) 1 Tablets By Mouth every 8 hours as needed as needed for pain. aspirin (aspirin 81 mg oral tablet) 1 Tablets By Mouth every day. cephalexin (cephalexin 500 mg Cap) 1 Capsules By Mouth every 12 hours for 7 Days. cholecalciferol (Vitamin D 400 IU) 400 International unit By Mouth every day. cyanocobalamin (cyanocobalamin 1000 mcg Tab) 1 Tablets By Mouth Wednesday, , Wednesday & Wednesday. levothyroxine (levothyroxine 25 mcg (0.025 mg) Tab) 1 Tablets By Mouth every day. multivitamin (Multi Vitamins oral tablet) 1 Tablets By Mouth every day. Pharmacy Information: [facility] Comment: PATIENT EDUCATION INFORMATION Instructions: Dizziness Dizziness is a common problem. It is a feeling of unsteadiness or light-headedness. You may feel like you are about to faint. Dizziness can lead to injury if you stumble or fall. Anyone can become dizzy, but dizziness is more common in older adults. This condition can be caused by a number of things, including medicines, dehydration, or illness. Follow these instructions at home: Eating and drinking ? Drink enough fluid to keep your urine pale yellow. This helps to keep you from becoming dehydrated. Try to drink more clear fluids, such as water. ? Do not drink alcohol. ? Limit your caffeine intake if told to do so by your health care provider. Check ingredients and nutrition facts to see if a food or beverage contains caffeine. ? Limit your salt (sodium) intake if told to do so by your health care provider. Check ingredients and nutrition facts to see if a food or beverage contains sodium. Activity ? Avoid making quick move (more content not included)... Normal [facility] Lipid Panelon 09-17-2023 Cholesterol [Mass/Vol] 185 mg/dL Normal 120-200 [facility] Comment on above: Performed By: #### 2 [id number] ####[facility] [address] [place] [address] Cholesterol in HDL [Mass/Vol] 37 mg/dL Invalid Interpretation Code [facility] Comment on above: Result Comment: HDL > or equal to 60 mg/dL: Low cardiovascular risk HDL < 40 mg/dL : High cardiovascular risk Performed By: #### 2 [id number] ####[facility] [address] [place] [address] Cholesterol in LDL [Mass/Vol] 125 mg/dL Normal <=129 [facility] Comment on above: Performed By: #### 2 [id number] ####[facility] [address] [place] [address] Cholesterol in VLDL [Mass/Vol] 18 mg/dL Normal 7-40 [facility] Comment on above: Performed By: #### 2 [id number] ####[facility] [address] [place] [address] Triglyceride [Mass/Vol] 88 mg/dL Normal <=149 [facility] Comment on above: Performed By: #### 2 [id number] ####[facility] [address] [place] [address] MRI Brain w/o Contraston MRI Brain w/o Contrast Exam Date/Time: 09/17/2023 10:37 EST Reason for Exam: Syncope/presyncope, cerebrovascular cause suspected Report IMPRESSION: NO ACUTE INTRACRANIAL PROCESS IDENTIFIED. AGE-RELATED INVOLUTIONAL CHANGES, SIMILAR TO 12/21/2019. EXAM: MRI Brain w/o Contrast DATE: 09/17/2023 10:12 AM CLINICAL HISTORY: Syncope/presyncope, cerebrovascular cause suspected. COMPARISON: Head CT and head and neck CTAs 09/16/2023, and head MRI/MRA 12/21/2019. TECHNIQUE: Multiplanar MR imaging of the head was performed without contrast. FINDINGS: Acute Change: There is no evidence of restricted diffusion to suggest an acute infarct. Hemorrhage: No evidence of prior parenchymal hemorrhage. Mass Lesion/ Mass Effect: No evidence of an intracranial mass or extra-axial fluid collection. No significant mass effect. Chronic Change: Mild to moderate chronic white matter changes appear substantially similar to 12/21/2019. Parenchyma: No significant volume loss for age. The brain parenchyma is otherwise within normal limits of signal intensity and morphology. Ventricles: Normal caliber and morphology. Skull Base: Hypothalamic and pituitary region are grossly normal. Craniocervical junction is normal. No significant marrow replacement process. Vasculature: Major intracranial arterial structures, and dural venous sinuses show typical flow void, suggesting patency. Other: Paranasal sinuses and mastoid air cells are clear. The orbits are unremarkable. The extracranial soft tissues are unremarkable. Report Ordering Provider: Diane SILVA FINAL REPORT Dictated: 09/17/2023 11:42 am Cheko Hernandez MD Signed (Electronic Signature): 09/17/2023 11:42 am Signed by: Cheko Hernandez MD Transcribed by: RADHA Technologist: FAUSTINA Technical Comments None Normal [facility] Message from Medicareon 09-01 Message from Medicare [id number]# 1.00TIFF Normal [facility] Monitor Recordon 09-17-2023 Monitor Record [id number]# 1.00TIFF Normal [facility] Monitor Record [id number]# 1.00TIFF Normal [facility] Monitor Record [id number]# 1.00TIFF Normal [facility] Monitor Record [id number]# 1.00TIFF Normal [facility] Monitor Record [id number]# 1.00TIFF Normal [facility] Patient Education - Texton 1 11-17-2022 Patient Education - Text Neurology Dizziness Dizziness is a common problem. It is a feeling of unsteadiness or light-headedness. You may feel like you are about to faint. Dizziness can lead to injury if you stumble or fall. Anyone can become dizzy, but dizziness is more common in older adults. This condition can be caused by a number of things, including medicines, dehydration, or illness. Follow these instructions at home: Eating and drinking ? Drink enough fluid to keep your urine pale yellow. This helps to keep you from becoming dehydrated. Try to drink more clear fluids, such as water. ? Do not drink alcohol. ? Limit your caffeine intake if told to do so by your health care provider. Check ingredients and nutrition facts to see if a food or beverage contains caffeine. ? Limit your salt (sodium) intake if told to do so by your health care provider. Check ingredients and nutrition facts to see if a food or beverage contains sodium. Activity ? Avoid making quick movements. ? Rise slowly from chairs and steady yourself until you feel okay. ? In the morning, first sit up on the side of the bed. When you feel okay, stand slowly while you hold onto something until you know that your balance is good. ? If you need to park superintendent one place for a long time, move your legs often. Tighten and relax the muscles in your legs while you are standing. ? Do not drive or use machinery if you feel dizzy. ? Avoid bending down if you feel dizzy. Place items in your home so that they are easy for you to reach without leaning over. Lifestyle ? Do not use any products that contain nicotine or tobacco. These products include cigarettes, chewing tobacco, and vaping devices, such as e-cigarettes. If you need help quitting, ask your health care provider. ? Try to reduce your stress level by using methods such as yoga or meditation. Talk with your health care provider if you need help to manage your stress. General instructions ? Watch your dizziness for any changes. ? Take nzca-you-dlrnfsh and prescription medicines only as told by your health care provider. Talk with your health care provider if you think that your dizziness is caused by a medicine that you are taking. ? Tell a friend or a family member that you are feeling dizzy. If he or she notices any changes in your behavior, have this person call your health care provider. ? Keep all follow-up visits. This is important. Contact a health care provider if: ? Your dizziness does not go away or you have new symptoms. ? Your dizziness or light-headedness gets worse. ? You feel nauseous. ? You have reduced hearing. ? You have a fever. ? You have neck pain or a stiff neck. ? Your dizziness leads to an injury or a fall. Get help right away if: ? You vomit or have diarrhea and are unable to eat or drink anything. ? You have problems talking, walking, swallowing, or using your arms, hands, or legs. ? You feel generally weak. ? You have any bleeding. ? You are not thinking clearly or you have trouble forming sentences. It may take a friend or family member to notice this. ? You have chest pain, abdominal pain, shortness of breath, or sweating. ? Your vision changes or you develop a severe headache. These symptoms may represent a serious problem that is an emergency. Do not wait to see if the symptoms will go away. Get medical help right away. Call your local emergency services (911 in the [place] Do not drive yourself to the hospital. Summary ? Dizziness is a feeling of unsteadiness or light-headedness. This condition can be caused by a number of things, including medicines, dehydration, or illness. ? Anyone can become dizzy, but dizziness is more common in older adults. ? Drink enough fluid to keep your urine pale yellow. Do not drink alcohol. ? Avoid making quick movements if you feel dizzy. Monitor your dizziness for any changes. This information is not intended to replace advice given to you by your health care provider. Make sure you discuss any questions you have with your health care provider. Document Revised: 09/22/2021 Document Reviewed: 09/22/2021 [employer] Patient Education ? 2022 [employer] Normal [facility] RAD - MRI Screening Formon 1 11-17-2022 RAD - MRI Screening Form [id number]# 1.00TIFF Normal [facility] Auto Diffon 09-16-2023 Basophils/100 WBC (Bld) 1.1 % Normal 0.0-2.0 [facility] Comment on above: Order Comment: Order Added by Discern Expert. Performed By: #### 1 [id number] ####[facility] [address] [place] [address] Basophils/Leukocytes Auto (Bld) [Pure # fraction] 0.1 E9/L Normal 0.0-0.2 [facility] Comment on above: Order Comment: Order Added by Discern Expert. Performed By: #### 1 [id number], [id number], [id number], [id number], [id number] ####[place] [id number] [place] [address] Eosinophils/100 WBC (Bld) 0.4 % Normal 0.0-8.0 [facility] Comment on above: Order Comment: Order Added by Discern Expert. Performed By: #### 1 [id number], [id number], [id number], [id number], [id number] ####[place] [address] [place] [address] Eosinophils/Leukocytes Auto (Bld) [Pure # fraction] 0.0 E9/L Normal 0.0-0.5 [facility] Comment on above: Order Comment: Order Added by Dorothy Expert. Performed By: #### 1 [id number], [id number], [id number], [id number], [id number] ####[address] [address] Lymphocytes/100 WBC (Bld) 24.5 % Normal 14.0-50.0 [facility] Comment on above: Order Comment: Order Added by Dorothy Expert. Performed By: #### 1 [id number], [id number], [id number], [id number], [id number] ####[address] [address] Lymphocytes/Leukocytes Auto (Bld) [Pure # fraction] 1.4 E9/L Normal 1.0-4.0 [facility] Comment on above: Order Comment: Order Added by Dorothy Expert. Performed By: #### 1 [id number], [id number], [id number], [id number], [id number] ####[place] [address] [place] [address] Monocytes/100 WBC (Bld) 6.3 % Normal 4.0-14.0 [facility] Comment on above: Order Comment: Order Added by Dorothy Expert. Performed By: #### 1 [id number], [id number], [id number], [id number], [id number] ####[facility] [address] [place] [address] Monocytes/Leukocytes Auto (Bld) [Pure # fraction] 0.4 E9/L Normal 0.2-1.0 [facility] Comment on above: Order Comment: Order Added by Dorothy Expert. Performed By: #### 1 [id number], [id number], [id number], [id number], [id number] ####[place] [address] [place] [address] Neutrophils/100 WBC (Bld) 67.7 % Normal 36.0-75.0 [facility] Comment on above: Order Comment: Order Added by Dorothy Expert. Performed By: #### 1 [id number], [id number], 7229397, 8779859, [id number] ####[address] [place] [address] Neutrophils/Leukocytes Auto (Bld) [Pure # fraction] 3.9 E9/L Normal 2.0-7.5 [facility] Comment on above: Order Comment: Order Added by Dorothy Expert. Performed By: #### 1 [id number], [id number], 1937414, 6162434, [id number] ####[address] [place] [address] BMPon 09-16-2023 Creatinine [Mass/Vol] 0.9 mg/dL Normal 0.5-1.3 [facility] Comment on above: Performed By: #### 1 [id number], 3831899, 4184748, 2038412, 96940940 ####[facility] [address] [place] [address] Urea nitrogen [Mass/Vol] 20 mg/dL Normal 5-21 [facility] Comment on above: Performed By: #### 1 [id number], 1960571, 5934889, 2432923, [id number] ####[facility] [address] [place] [address] Urea nitrogen/Creatinine [Mass ratio] 22 No Units High 10-20 [facility] Comment on above: Performed By: #### 1 [id number], 8713942, 3865356, 8210112, [id number] ####[facility] [address] [place] [address] Anion gap [Moles/Vol] 14 mmol/L Normal 6-16 [facility] Comment on above: Performed By: #### 1 [id number], 6219653, 2569846, 9302299, 06873214 ####[facility] [address] [place] [address] Calcium [Mass/Vol] 9.5 mg/dL Normal 8.9-11.1 [facility] Comment on above: Performed By: #### 1 2085595, 3166677, 0913057, 6567551, [id number] ####[facility] [address] [place] [address] Chloride [Moles/Vol] 103 mmol/L Normal 101-111 [facility] Comment on above: Performed By: #### 1 4891977, 6159404, 8197873, 6205435, 16208709 ####[facility] [address] [place] [address] CO2 [Moles/Vol] 25 mmol/L Normal 21-31 [facility] Comment on above: Performed By: #### 1 8896253, 8992689, 0749006, 7153410, 11478792 ####[facility] [address] [place] [address] Glucose [Mass/Vol] 94 mg/dL Normal 55-199 [facility] Comment on above: Result Comment: If t his glucose result represents a fasting glucose, interpretation should refer to the following reference range: 55-99 mg/dL Performed By: #### 1 [id number], 4074485, 3312824, 0312811, [id number] ####[facility] [address] [place] [address] Potassium [Moles/Vol] 4.0 mmol/L Normal 3.5-5.3 [facility] Comment on above: Performed By: #### 1 1090770, 8231595, 0050263, 3489860, 66094913 ####[facility] [address] [place] [address] Sodium [Moles/Vol] 138 mmol/L Normal 135-145 [facility] Comment on above: Performed By: #### 1 8041471, 7320261, 2123517, 9124451, 95075312 ####[address] [address] CBC w/ Auto Diffon 3 Erythrocyte distribution width (RBC) [Ratio] 13.3 % Normal 10.9-14.2 [facility] Comment on above: Performed By: #### 1 6368208, 6375891, 8396804, 9093183, 24301586 ####[address] [address] Hematocrit (Bld) [Volume fraction] 42.3 % Normal 34.0-46.0 [facility] Comment on above: Performed By: #### 1 9447406, 5087509, 7584867, 6105674, 43070074 ####[address] [address] Hemoglobin (Bld) [Mass/Vol] 14.4 g/dL Normal 12.0-16.0 [facility] Comment on above: Performed By: #### 1 1521191, 9511840, 4128069, 1859028, 61818460 ####[address] [place] [address] MCH (RBC) [Entitic mass] 29.0 pg Normal 27.0-34.0 [facility] Comment on above: Performed By: #### 1 5992640, 0306793, 5362490, 9537738, 91503466 ####[facility] [address] [place] [address] MCHC (RBC) [Mass/Vol] 34.0 g/dL Normal 31.4-36.0 [facility] Comment on above: Performed By: #### 1 4217029, 3054868, 1035564, 0624508, 27385272 ####[address] [place] [address] MCV (RBC) [Entitic vol] 85.1 fL Normal 80.0-100.0 [facility] Comment on above: Performed By: #### 1 5617946, 3038751, 1884953, 8218398, 52654577 ####[address] [address] Platelet mean volume (Bld) [Entitic vol] 8.2 fL Normal 6.4-10.8 [facility] Comment on above: Performed By: #### 1 8984785, 8500613, 8124621, 6126711, 09792512 ####[address] [address] Platelets (Bld) [#/Vol] 158.0 E9/L Normal 150.0-500.0 [facility] Comment on above: Performed By: #### 1 0847762, 3136452, 9541223, 4238233, 53987025 ####[address] [address] RBC (Bld) [#/Vol] 5.0 E12/L Normal 4.3-5.9 [facility] Comment on above: Performed By: #### 1 4135499, 5869293, 7549972, 7517239, 71738709 ####[address] [address] WBC corrected for nucl RBC Auto (Bld) [#/Vol] 5.7 E9/L Normal 4.0-11.0 [facility] Comment on above: Performed By: #### 1 5191178, 4744795, 0590612, 9702200, 02846254 ####[address] [place] [address] CHEMISTRYOrdered By: SYSTEM SYSTEM on 09-16-2023 Anion gap [Moles/Vol] 14 mmol/L Normal 6 - 16 mEq/L F C [facility]isol Calcium [Mass/Vol] 9.5 mg/dL Normal 8.9 - 11. 1 mg/dL [facility] Remisol Chloride [Moles/Vol] 103 mmol/L Normal 101 - 1 11 mmol/L [facility] Remisol CO2 [Moles/Vol] 25 mmol/L Normal 21 - 31 mmol/L [facility] Remisol Creatinine [Mass/Vol] 0.9 mg/dL Normal 0.5 - 1.3 mg/dL [facility] Remisol GFR/1.73 sq M.predicted among non-blacks MDRD (S/P/Bld) [Vol rate/Area] 62 mL/min/1.73 m2 Normal >=59mL/min/1 .73 m2 [facility] Chem S Comment on above: Interpretive Data: C hronic kidney disease could be indicated at eGFR's of less than 60 mL/min/1.73m2. Kidney failure is indicated at less than 15 mL/min/1.73m2. Glucose [Mass/Vol] 94 mg/dL Normal 55 - 199 mg/dL [facility] Remisol Comment on above: Interpretive Data: I f this glucose result represents a fasting glucose, interpretation should refer to the following reference range: 55-99 mg/dL Potassium [Moles/Vol] 4.0 mmol/L Normal 3.5 - 5.3 mmol/L [facility] Remisol Sodium [Moles/Vol] 138 mmol/L Normal 135 - 145 mmol/L [facility] Remisol Urea nitrogen [Mass/Vol] 20 mg/dL Normal 5 - 21 mg/dL [facility] Remisol Urea nitrogen/Creatinine [Mass ratio] 22 mg/mg High 10 - 20 [facility] Remisol COAGULATIONOrdered By: Yoana Prince on 09-16-2023 aPTT Coag (PPP) [Time] 30.7 s Normal 25.1 - 36.5 second(s) [facility] Auto Coag Comment on above: Interpretive Data: P arameter 15 days - 4 weeks 1 - 5 months 6 - 11 months 1 - 5 years 6 - 10 years 11 - 17 years PTT Mean: 35.4 (27.6-45.6) Mean: 33.5 (24.8-40.7) Mean: 32.4 (25.1-40.7) Mean: 31.6 (24.0-39.2) Mean: 31.6 (26.9-38.7) Mean: 31.0 (24.6-38.4) Pediatric Reference ranges were obtained from a study by arlene Del Rosario al. prepared from 1437 samples obtained at 7 different centers using the same coagulation reagent and instrumentation as [facility]. Currently there are no coagulation studies available worldwide for children to 14 days, and no normal ranges. Heparin therapeutic range (represented by Anti-Factor Xa activity of 0.2 - 0.4 U/mL) corresponds to PTT of 56.6 - 109.0 sec. INR Coag (PPP) [Relative time] 1.0 {INR} Invalid Interpretation Code [facility] Auto Coag Comment on above: Interpretive Data: I NR results are specifically intended to assess patients stabilized on long-term Anticoagulation therapy suggested INR s Less Intensive Anticoagulation 2.0 3.0 Conventional Range 3.0 4.5 PT Coag (PPP) [Time] 11.4 s Normal 9.4 - 1 2.5 second(s) [facility] Auto Coag Comment on above: Interpretive Data: 1 5 days - 4 weeks 1 - 5 months 6 -11 months 1 5 years 6 10 years 11 -17 years Mean: 11.2 (9.5 12.6) Mean: 11.0 (9.7 12.8) Mean: 11.0 (9.8 13.0) Mean: 11.3 (9.9 13.4) Mean: 11.7 (10.0 14.6) Mean: 11.8 (10.0 - 14.1) Pediatric Reference ranges were obtained from a study by arlene Del Rosario al. prepared from 1437 samples obtained at 7 different centers using the same coagulation reagent and instrumentation as [facility]. Currently there are no coagulation studies available worldwide for children to 14 days, and no normal ranges. CT Spine Cervical w/o Contra ston 09-16-2023 CT Spine Cervical w/o Contrast Exam Date/Time: 09/16/2023 13:16 EST Reason for Exam: neck pain, injury;Other (please specify) Report IMPRESSION: NO ACUTE FRACTURE OR MALALIGNMENT. EXAM: CT SCAN OF THE CERVICAL SPINE HISTORY: Neck pain COMPARISON: CT cervical spine 05/26/2022 TECHNIQUE: Routine axial CT images and multiplanar reformatted images of the cervical spine were obtained. FINDINGS: No acute fracture or malalignment. Atlantodental interval is preserved. Cervical spine vertebral body heights are maintained. Degenerative changes of the cervical spine are again identified and do not appear significant changed. No prevertebral soft tissue swelling. Multiple thyroid nodules are again identified. All CT scans at this facility use dose modulation, iterative reconstruction, and/or weight based dosing when appropriate to reduce radiation dose to as low as reasonably achievable. Ordering Provider: Miller Waggoner FINAL REPORT Dictated: 09/16/2023 1:33 pm Paramjit Hinton DO Signed (Electronic Signature): 09/16/2023 1:33 pm Signed by: Paramjit Hinton DO Transcribed by: RADHA Technologist: DIMA Normal [facility] CTA Headon 09-16-2023 CTA Head Exam Date/Time: 09/16/2023 13:17 EST Reason for Exam: altered gait, pain;Other (please specify) Report Please see CTA neck report. Ordering Provider: Miller Waggoner FINAL REPORT Dictated: 09/16/2023 1:43 pm Paramjit Hinton DO Signed (Electronic Signature): 09/16/2023 1:43 pm Signed by: Paramjit Hinton DO Transcribed by: RADHA Technologist: DIMA Technical Comments GFR (mL/min/1/73m2) 100 Contrast: Isovue 370 Contrast amount in ml's: 100 Normal [facility] CTA Neckon 09-16-2023 CTA Neck Exam Date/Time: 09/16/2023 13:17 EST Reason for Exam: neck pain, altered gait;Other (please specify) Report IMPRESSION: NO ACUTE INTRACRANIAL PROCESS. GENERALIZED PARENCHYMAL VOLUME LOSS AND NONSPECIFIC WHITE MATTER FINDINGS MOST COMPATIBLE WITH CHRONIC SMALL VESSEL ISCHEMIC CHANGES IN A PATIENT OF THIS AGE. EXAMINATION: CT of the brain without contrast HISTORY: Neck pain. Altered gait. COMPARISON: CT brain 06/08/2022 TECHNIQUE: Multiple axial images were obtained of the brain from the skull base through the vertex. Multiplanar reformats were obtained. FINDINGS: Prominence of the sulci and ventricles compatible with mild generalized parenchymal volume loss. Leon-white matter differentiation is preserved. Areas of bilateral supratentorial white matter hypoattenuation are nonspecific but most likely due to chronic small vessel ischemic changes in a patient of this age. No acute hemorrhage or abnormal extra-axial fluid collection. Basal cisterns are patent. No mass effect or midline shift. The visualized paranasal sinuses and mastoid air cells are clear. Calvarium is intact. IMPRESSION: CTA HEAD: NO ANEURYSM OR HIGH-GRADE STENOSIS. CTA NECK: NO DISSECTION OR HIGH-GRADE STENOSIS. Exam: CT angiography of the head Report CT angiography of the neck History: Neck pain. Altered gait. Unsteadiness on feet. Technique: Axial images were obtained from the thoracic inlet through the [place] ira of [place] after administration of intravenous contrast. Multiplanar reformatted images and multiplanar maximum intensity projection images were obtained, as were postprocessed 3-D volume rendered images. Luminal narrowings are estimated using NASCET criteria. Findings: CTA neck: There is a three-vessel aortic arch with normal origins of the brachiocephalic, left common carotid and left subclavian arteries. The vertebral arteries originate from the subclavian arteries. No significant stenosis of the great vessel origins or the origin of the carotid or vertebral arteries. The bilateral common carotid arteries are of normal course and caliber. The bilateral internal and external carotid arteries are of normal course and caliber. The vertebral arteries are normal in course and caliber. No dissection, high grade stenosis or aneurysm. Diffusely heterogenous thyroid gland with multiple nodules. CTA head: The internal carotid arteries through the skull base are patent. The bilateral middle cerebral arteries through the trifurcation and opercular branches are patent. The vertebrobasilar system including the superior cerebellar and posterior cerebral arteries are patent. Another posterior to indicating artery is identified. The bilateral anterior cerebral arteries and anterior communicating artery are patent. No aneurysm or high-grade stenosis. All CT scans at this facility use dose modulation, iterative reconstruction, and/or weight based dosing when appropriate to reduce radiation dose to as low as reasonably achievable. Ordering Provider: Miller Waggoner FINAL REPORT Dictated: 09/16/2023 1:43 pm Paramjit Hinton DO Signed (Electronic Signature): 09/16/2023 1:43 pm Signed by: Paramjit Hinton DO Transcribed by: RADHA Technologist: DIMA Technical Comments GFR (mL/min/1/73m2) >60 Contrast: Isovue 370 Contrast amount in ml's: 100 Normal [facility] Consent for Treatmenton 09-01 Consent for Treatment [id number] Normal [facility] ED Clinical Summaryon 2022 ED Clinical Summary [id number] ED Clinical Summary Person Information Name: VANE PARIS [facility] Age: 88 Years : 1935 Sex: Female Language: Eritrean PCP: SUHA GREWAL DO Marital Status: Phone: [phone] Visit Id: Visit Reason: Altered gait; Medical screening exam; Neck pain; NECK PAIN Speciality: Acuity: 3 Enc Type: Observation Med Service: Medical Arrival: 09/16/2023 11:36:11 Discharge: LOS: 000 07:14 Checkin: 09/16/2023 11:36:11 Checkout: 09/16/2023 18:50:07 Dispo Type: Admitted as IP to this [facility] EVENTS: Event Name Event Status Request Date/Time Start Date/Time Complete Date/Time Arrive Complete 09/16/2023 11:36:11 09/16/2023 11:36:11 09/16/2023 11:36:11 Document Home Meds Complete 09/16/2023 11:36:11 09/16/2023 15:22:12 09/16/2023 15:22:12 Triage Complete 09/16/2023 11:36:11 09/16/2023 11:46:49 09/16/2023 11:46:49 Dr Exam Complete 09/16/2023 11:37:54 09/16/2023 11:37:54 09/16/2023 11:37:54 Registration Complete 09/16/2023 11:37:54 09/16/2023 11:38:15 09/16/2023 12:26:23 Bed Assign Complete 09/16/2023 11:38:15 09/16/2023 11:38:15 09/16/2023 11:38:15 RN Exam Complete 09/16/2023 11:38:15 09/16/2023 11:56:19 09/16/2023 11:56:19 CT Complete 09/16/2023 11:56:46 09/16/2023 12:35:40 09/16/2023 13:17:31 Pending Labs Complete 09/16/2023 11:56:46 09/16/2023 12:52:22 Lab Complete 09/16/2023 11:56:46 09/16/2023 12:34:41 Pending Labs Complete 09/16/2023 12:19:48 09/16/2023 12:19:48 09/16/2023 12:34:42 Lab Complete 09/16/2023 12:19:48 09/16/2023 12:19:48 09/16/2023 12:34:42 Reg Complete Request 09/16/2023 12:26:23 Reg Bed Request Complete 09/16/2023 12:26:23 09/16/2023 12:26:23 09/16/2023 12:26:23 Pending Labs Complete 09/16/2023 12:26:29 09/16/2023 12:26:29 09/16/2023 12:26:35 Lab Complete 09/16/2023 12:26:29 09/16/2023 12:26:29 09/16/2023 12:26:35 Pending Labs Complete 09/16/2023 12:37:20 09/16/2023 12:37:20 09/16/2023 12:37:21 Meds Admin Complete 09/16/2023 14:24:14 09/16/2023 14:44:52 Patient Care Request 09/16/2023 15:26:12 Patient Care Request 09/16/2023 15:26:12 Patient Care Request 09/16/2023 15:26:12 Patient Care Request 09/16/2023 15:26:13 Pending Labs Complete 09/16/2023 15:37:39 09/16/2023 15:58:02 Lab Complete 09/16/2023 15:37:39 09/16/2023 15:58:02 Urine Collect Complete 09/16/2023 15:37:39 09/16/2023 15:58:02 Patient Care Request 09/16/2023 16:10:20 Meds Admin Request 09/16/2023 16:10:20 Bed Request Request 09/16/2023 16:10:20 Reg Bed Request Complete 09/16/2023 16:10:20 09/16/2023 16:20:42 09/16/2023 16:20:42 Admit Request 09/16/2023 16:10:20 MRI Request 09/16/2023 16:11:28 Meds Admin Request 09/16/2023 16:28:09 Pending Labs Request 09/16/2023 16:28:31 Lab Request 09/16/2023 16:28:31 ADDRESS: [address] [place] [id number] PHYS DOC NOTES: MEDICAL INFORMATION: Prescriptions Given: Medications to Continue with No Changes Other Medications acetaminophen (Tylenol 8 Hour Caplet 650 mg oral tablet, extended release) 1 Tablets By Mouth every 8 hours as needed as needed for pain. aspirin (aspirin 81 mg oral tablet) 1 Tablets By Mouth every day. cephalexin (cephalexin 500 mg Cap) 1 Capsules By Mouth every 12 hours for 7 Days. cholecalciferol (Vitamin D 400 IU) 400 International unit By Mouth every day. cyanocobalamin (cyanocobalamin 1000 mcg Tab) 1 Tablets By Mouth Wednesday, , Wednesday & Wednesday. levothyroxine (levothyroxine 25 mcg (0.025 mg) Tab) 1 Tablets By Mouth every day. multivitamin (Multi Vitamins oral tablet) 1 Tablets By Mouth every day. PATIENT EDUCATION INFORMATION: Instructions: Follow up: DIAGNOSIS: 1:Dizziness of unknown cause; 2:Hyperthyroidism; 3:TIA - Transient ischaemic attack; 4:Hyperlipidemia Roman [facility] ED Noteon 09-16-2023 ED Note ambulated pt to the bathroom and back, had complaints of dizziness and said her head feels big. reported to dr edilson Owens [facility] ED Note-Physicianon 09-16-20 ED Note-Physician Basic Information Time Seen: Miller Waggoner DO 09/16/2023 11:37 Chief Complaint Pt. came w/ the squad d/t neck pain and difficulty walking/being unsteady on her feet, right after they sit her in a shampoo station in the salon she heard a crack in her neck. Said she'll be having a sx of her ganglion cyst on Wednesday, on Cephalexin 3days History of Present Illness 88-year-old female to the emergency department with chief complaint of difficulty walking. Patient reports that today she went to [facility] to get her hair done. She sat down to get her hair washed and extended her neck and felt a pop in her neck which was followed by a feeling of fullness in her head. They tried to get her up and out of position however she could not walk at that time due to unsteady gait. She denies any numbness, weakness, tingling. She denies any pain in her neck. She denies any vision changes. She has never had symptoms like this before. Review of Systems A 10 point review of systems is negative except as noted above. Medical and Surgical History: Reviewed and noted Social history: Lives at home Tobacco: Denies Physical Exam Vitals & Measurements T: 36.5 ?C(Oral) HR: 87(Monitored) RR: 20 BP: 135/81 SpO2: 93% HT: 154 cm WT: 54 kg BMI: 22.77 VITALS: I have reviewed the triage vital signs. GENERAL: Well developed, well appearing adult in no acute distress. NEURO: Alert and oriented x4. Moves all extremities. Face is symmetric and expressive. Cranial nerves II through XII grossly intact as tested. Muscular strength and sensation grossly intact upper and lower extremities bilaterally. No dysarthria. No aphasia. No ataxia. Normal gait. NIHSS 0. EYES: PERRL. No scleral icterus or conjunctival injection. No discharge. HENT: Normocephalic, atraumatic. Hearing is grossly intact. Nares grossly patent and without discharge. Mucous membranes moist. NECK: No JVD. Patient moves neck without restriction. No midline c-spine tenderness. CARDIO: Rhythm regular. Normal rate. No murmur, rub, or gallop. Pulses equal bilaterally in the upper and lower extremity. No lower extremity edema. PULM: Lungs clear to auscultation in all [place]. No wheezes, rales, or rhonchi. No conversational dyspnea. No splinting, stridor, or accessory muscle use. GI/: Abdomen is soft and non-tender. Normoactive bowel sounds. EXTREMITIES: Symmetric muscle bulk. No joint swelling. No clubbing, cyanosis, or deformity. SKIN: Warm and dry. Normal turgor. No rash or lesions appreciated. PSYCH: Mood, affect, and interaction is appropriate to the setting. Medical Decision Making 88-year-old female to the emergency department with chief complaint of difficulty walking after extending her back to wash her hair. Vital stable, the patient is afebrile. There are no focal neurologic deficits appreciated on examination. She does have an ataxic gait when we try to ambulate her however. She denies any vertiginous symptoms. Will obtain CT head, CT angiogram to rule out dissection. CT cervical spine is also ordered to rule out fracture. Exam is not consistent with central cord syndrome. CT head: Negative CTA: Negative Lab work reviewed and noted. No major abnormalities. Again attempted to ambulate the patient. She is unable to ambulate. Exam is not consistent with cervical spine injury however I am worried that she may have had a TIA or stroke. We will admit her for further neurologic evaluation. Miller Waggoner DO, [facility] Assessment/Plan 1. Dizziness of unknown cause (R42: Dizziness and giddiness) 2. Hyperthyroidism (E05.90: Thyrotoxicosis, unspecified without thyrotoxic crisis or storm) 3. TIA - Transient ischaemic attack (G45.9: Transient cerebral ischemic attack, unspecified) 4. Hyperlipidemia (E78.5: Hyperlipidemia, unspecified) Orders: meclizine, 25 mg = 2 tab(s), Tab, Oral, Once, Stop date 09/16/23 14:23:00 EST, STAT, Start date 09/16/23 14:23:00 EST, 09/16/23 14:23:00 EST Automated Diff Basic Metabolic Panel CBC w/ Auto Diff CT Spine Cervical w/o Contrast CTA Head CTA Neck eGFR Extra SST Tube PT & PTT UA With Cult Reflex Medications Administered Given meclizine 12.5 mg Tab, 25 mg, Oral Disposition Plan Patient Discharge Condition Stable Discharge Disposition Home Discharge Prescription List Prescriptions No active prescription medications Follow-up No qualifying data available Problem List/Past Medical History Ongoing Fall Hyperthyroidism Smoker TIA - Transient ischaemic attack Historical No qualifying data Procedure/Surgical History left eye cataract extraction with intraocular lens placement. manual dilatation of the iris with a Malyugin ring (05/27/2015), right cataract extraction with intraocular lens placement (04/08/2015). Medications Inpatient acetaminophen 325 mg Tab, 650 mg= 2 tab(s), Oral, q6hr, PRN Al hydroxide/Mg hydroxide/simethicone 200 mg-200 mg-20 mg/5 mL oral suspension, 30 mL, Oral, q6hr, PRN aspirin 81 mg Chew Tab, (more content not included)... Normal [facility] Comment on above: Result Comment: Elec tronically Signed By: Miller Waggoner DO\.br\Date and Time Signed: 09/16/23 19:39 EST ED Patient Education Noteon 09-16-2023 ED Patient Education Note Normal [facility] ED Patient Summaryon 023 ED Patient Summary [place] [id number] Patient Discharge Instructions Person Information Name: VANE PARIS Age: 88 Years Arrival Date: 09/16/2023 11:36:11 Discharge Diagnosis: 1:Dizziness of unknown cause; 2:Hyperthyroidism; 3:TIA - Transient ischaemic attack; 4:Hyperlipidemia Primary Care Physician: SUHA GREWAL DO Provider Information Primary Provider: Miller Waggoner DO Advanced Engineering Program Manager:None The exam and treatment you received in the Emergency Department were for an urgent problem and are not intended as complete care. It is important that you follow up with a doctor, nurse practitioner, or physician?s assistant district attorney for ongoing care. If your symptoms become worse or you do not improve as expected and you are unable to reach your usual health care provider, you should return to the Emergency Department. We are available 24 hours a day. VANE PARIS has been given the following list of patient education materials, prescriptions and follow-up instructions: Follow-up Instructions: In the event that this physician does not participate in your insurance network, please consult with your insurance company to find a nearby participating provider. Patient Education Materials: A MESSAGE TO ALL PATIENTS REGARDING OPIOIDS PRESCRIPTION OPIOIDS: WHAT YOU NEED TO KNOW Prescription opioids can be used to help relieve kmqtppgy-py-jxpidg pain and are often prescribed following a surgery or injury, or for certain health conditions. These medications can be an important part of the treatment but also come with serious risks. It is important to work with your healthcare provider to make sure you are getting the safest, most effective care. WHAT ARE THE RISKS AND SIDE EFFECTS OF OPIOID USE? Prescription opioids carry serious risks of addiction and overdose, especially with prolonged use. An opioid overdose, often marked by slowed breathing, can cause sudden . The use of prescription opioids can have a number of side effects as well, even when taken as directed: ? Tolerance?meaning you might need to take more of the medication for the same pain relief ? Physical dependence?meaning you have symptoms of withdrawal when a medication is stopped ? Increased sensitivity to pain ? Constipation ? Nausea, vomiting, and dry mouth ? Sleepiness and dizziness ? Confusion ? Depression ? Low levels of testosterone that can result in lower sex drive, energy, and strength ? Itching and sweating RISKS ARE GREATER WITH: ? History of drug misuse, substance use disorder, or overdose ? Mental health conditions (such as depression or anxiety) ? Sleep apnea ? Older age (65 years and older) ? Avoid alcohol while taking prescription opioids. Also, unless specifically advised by your health care provider, medications to avoid include: ? Benzodiazepines (such as Xanax or Valium) ? Muscle relaxants (such as Soma or Flexeril) ? Hypnotics (such as Ambien or Lunesta) ? Other prescription opioids KNOW YOUR OPTIONS Talk to your health care provider about ways to manage your pain that don?t involve prescription opioids. Some of these options may actually work better and have fewer risks and side effects. Options may include: ? Pain relievers such as acetaminophen, ibuprofen, and naproxen ? Some medication that are also used for depression or seizures ? Physical therapy and exercise ? Cognitive behavioral therapy, a psychological, goal-directed approach, in which patients learn how to modify physical, behavioral, and emotional triggers of pain and stress. IF YOU ARE PRESCRIBED OPIOIDS FOR PAIN: ? Never take opioids in greater amounts or more often than prescribed. ? Follow up with your primary health care provider. o Work together to create a plan on how to manage your pain. o Talk about ways to help manage your pain that don?t involve prescription opioids. o Talk about any and all concerns and side effects. ? Help prevent misuse and abuse o Never sell or share prescription opioids. o Never use another person?s prescription opioids. ? Store prescription opioids in a secure place and out of reach of others (this may include visitors, children, friends, and family). ? Safely dispose of unused prescription opioids: Find your community drug take-back program or your pharmacy mail-back program, or flush them down the toilet, following guidance from the Food and Drug Administration (www.fda.gov/Drugs/Re sourcesForYou). ? Visit www.cdc.gov/drugoverd ose to learn about the risks of opioids abuse and overdose. ? If you believe you may be struggling with addiction, tell your health toddler caregiver and ask for guidance or call [facility]?S National Helpline at 3-309-930-BIXS. l Source: US Department of Health and Human Services/Center for Disease Control & Prevention Benja Ybarra (more content not included)... Normal [facility] HEMATOLOGYOrdered By: SYSTEM SYSTEM on 09-16-2023 Basophils/100 WBC (Bld) 1.1 % Normal 0.0 - 2.0 % [facility] HemeAutoSS Basophils/Leukocytes Auto (Bld) [Pure # fraction] 0.1 E9/L Normal 0.0 - 0.2 E9/L [facility] HemeAutoSS Eosinophils/100 WBC (Bld) 0.4 % Normal 0.0 - 8.0 % [facility] HemeAutoSS Eosinophils/Leukocytes Auto (Bld) [Pure # fraction] 0.0 E9/L Normal 0.0 - 0.5 E9/L [facility]eAutoSS Lymphocytes/100 WBC (Bld) 24.5 % Normal 14.0 - 50.0 % [facility] HemeAutoSS Lymphocytes/Leukocytes Auto (Bld) [Pure # fraction] 1.4 E9/L Normal 1.0 - 4.0 E9/L [facility]eAutoSS Monocytes/100 WBC (Bld) 6.3 % Normal 4.0 - 14.0 % [facility] HemeAutoSS Monocytes/Leukocytes Auto (Bld) [Pure # fraction] 0.4 E9/L Normal 0.2 - 1.0 E9/L [facility]eAutoSS Neutrophils/100 WBC (Bld) 67.7 % Normal 36.0 - 75.0 % [facility] HemeAutoSS Neutrophils/Leukocytes Auto (Bld) [Pure # fraction] 3.9 E9/L Normal 2.0 - 7.5 E9/L [facility]eAutoSS HEMATOLOGYOrdered By: Leia walton on 09-16-2023 Erythrocyte distribution width (RBC) [Ratio] 13.3 % Normal 10.9 - 14.2 % [facility] HemeAutoSS Hematocrit (Bld) [Volume fraction] 42.3 % Normal 34.0 - 46.0 % [facility] HemeAutoSS Hemoglobin (Bld) [Mass/Vol] 14.4 g/dL Normal 12.0 - 16.0 gm/dL [facility]eAuto[facility] MCH (RBC) [Entitic mass] 29.0 pg Normal 27.0 - 34.0 pg [facility]eAutoSS MCHC (RBC) [Mass/Vol] 34.0 g/dL Normal 31.4 - 36.0 gm/dL [facility]eAutoSS MCV (RBC) [Entitic vol] 85.1 fL Normal 80.0 - 100.0 fL [facility]eAutoSS Platelet mean volume (Bld) [Entitic vol] 8.2 fL Normal 6.4 - 10.8 fL [facility] HemeAutoSS Platelets (Bld) [#/Vol] 158.0 E9/L Normal 150.0 - 500.0 E9/L [facility]eAutoSS RBC (Bld) [#/Vol] 5.0 E12/L Normal 4.3 - 5.9 E12/L [facility]eAutoSS WBC corrected for nucl RBC Auto (Bld) [#/Vol] 5.7 E9/L Normal 4.0 - 11.0 E9/L [facility]Auto[facility] PT & PTTon 09-16-2023 aPTT Coag (PPP) [Time] 30.7 second(s) Normal 25.1-36.5 [facility] Comment on above: Result Comment: Para meter 15 days - 4 weeks 1 - 5 months 6 - 11 months 1 - 5 years 6 - 10 years 11 - 17 years PTT Mean: 35.4 (27.6-45.6) Mean: 33.5 (24.8-40.7) Mean: 32.4 (25.1-40.7) Mean: 31.6 (24.0-39.2) Mean: 31.6 (26.9-38.7) Mean: 31.0 (24.6-38.4) Pediatric Reference ranges were obtained from a study by arlene Del Rosario al. prepared from 1437 samples obtained at 7 different centers using the same coagulation reagent and instrumentation as [facility]. Currently there are no coagulation studies available worldwide for children to 14 days, and no normal ranges. Heparin therapeutic range (represented by Anti-Factor Xa activity of 0.2 - 0.4 U/mL) corresponds to PTT of 56.6 - 109.0 sec. Performed By: #### 1 [id number], [id number], [id number], [id number], [id number] ####[facility] [address] [place] [address] INR Coag (PPP) [Relative time] 1.0 {INR} Invalid Interpretation Code [facility] Comment on above: Result Comment: INR results are specifically intended to assess patients stabilized on long-term Anticoagulation therapy suggested INR?s ?Less Intensive Anticoagulation? 2.0 ? 3.0 Conventional Range 3.0 ? 4.5 Performed By: #### 1 [id number], [id number], [id number], [id number], [id number] ####[facility] [address] [place] [address] PT Coag (PPP) [Time] 11.4 second(s) Normal 9.4-12.5 [facility] Comment on above: Result Comment: 15 d ays - 4 weeks 1 - 5 months 6 -11 months 1 ? 5 years 6 ? 10 years 11 -17 years Mean: 11.2 (9.5 ? 12.6) Mean: 11.0 (9.7 ? 12.8) Mean: 11.0 (9.8 ? 13.0) Mean: 11.3 (9.9 ? 13.4) Mean: 11.7 (10.0 ? 14.6) Mean: 11.8 (10.0 - 14.1) Pediatric Reference ranges were obtained from a study by Aníbal Schuster et al. prepared from 1437 samples obtained at 7 different centers using the same coagulation reagent and instrumentation as [facility]. Currently there are no coagulation studies available worldwide for children to 14 days, and no normal ranges. Performed By: #### 1 [id number], [id number], [id number], [id number], [id number] ####[facility] [address] [place] [address] Pre-Arrival Noteon 3 Pre-Arrival Note Pre-Arrival Summary Name: RUBEN, Current Date: 09/16/2023 11:45:47 EST Gender: Female Date of : Age: 88 Pre-Arrival Type: EMS ETA: 09/16/2023 11:57:00 EST Primary Care Physician: Presenting Problem: Neck Pain/Unable to Ambulate Pre-Arrival User: Amber Gill Referring Source: Location: PA Completion Date/Time: 09/16/2023 00:00:00 [facility] Emergency Department Pre-Hospital Report Form Vital Signs: 162/89, hr 92, 99% RA Pre-Hospital Report: [facility] and felt a pop in her neck. Pt states her head feels huge and she is unable to ambulate. Treatment in Route: 20G LAC, c-collar Response to Treatment: Misc. Issues: Normal [facility] UA With Cult Reflexon 2022 Bacteria LM Ql (Urine sed) TRACE Normal Trace [facility] Comment on above: Performed By: #### 1 [id number] ####[facility] [address] [place] [address] Bilirubin Ql (U) Negative Normal Negative [facility] Comment on above: Performed By: #### 1 [id number] ####[facility] [address] [place] [address] Clarity (U) CLEAR Normal Clear [facility] Comment on above: Performed By: #### 1 [id number] ####[facility] [address] [place] [address] Color (U) STRAW Abnormal Yellow [facility] Comment on above: Performed By: #### 1 [id number] ####[facility] [address] [place] [address] Crystals LM Ql (Urine sed) Present Normal [facility] Comment on above: Performed By: #### 1 [id number] ####[address] [address] Epithelial cells.squamous LM.HPF (Urine sed) [#/Area] 0-2 Normal 0-2 [facility] Comment on above: Performed By: #### 1 [id number] ####[address] [address] Glucose Test strip (U) [Mass/Vol] Negative Normal Negative [facility] Comment on above: Performed By: #### 1 [id number] ####[address] [address] Hemoglobin Ql (U) Negative Normal Negative [facility] Comment on above: Performed By: #### 1 [id number] ####[address] [address] Ketones (U) [Mass/Vol] TRACE Abnormal Negative [facility] Comment on above: Performed By: #### 1 [id number] ####[address] [address] [place].plasma/[place] .RBC (Bld) [Mass ratio] 0-3 Normal 0-3 [facility] Comment on above: Performed By: #### 1 [id number] ####[address] [address] Nitrite Ql (U) Negative Normal Negative [facility] Comment on above: Performed By: #### 1 [id number] ####[address] [address] pH (U) 7.0 [pH] Invalid Interpretation Code 5.0-9.0 [facility] Comment on above: Performed By: #### 1 [id number] ####[facility] [address] [place] [address] Protein (U) [Mass/Vol] Negative Normal Negative [facility] Comment on above: Performed By: #### 1 [id number] ####[facility] [address] [place] [address] Specific gravity (U) [Rel density] <=1.005 Invalid Interpretation Code 1.005-1.030 [facility] Comment on above: Performed By: #### 1 [id number] ####[address] [address] Type of Urine collection method Clean Catch Normal [facility] Comment on above: Performed By: #### 1 [id number] ####[facility] [address] [place] [address] Urobilinogen Qn (U) 0.2 {Rahel'U}/dL Normal 0.0-1.0 [facility] Comment on above: Performed By: #### 1 [id number] ####[address] [address] WBC Auto Ql (U) Negative Normal Negative [facility] Comment on above: Performed By: #### 1 [id number] ####[address] [address] WBC LM.HPF (Urine sed) [#/Area] 0-5 Normal 0-5 [facility] Comment on above: Performed By: #### 1 [id number] ####[address] [address] URINALYSISOrdered By: Terry Chavez on 09-16-2023 Bacteria LM Ql (Urine sed) Trace /HPF Normal Trace/HPF [facility] UA Auto SS Bilirubin Ql (U) Negative (09/16/23 3:39 PM) Normal Negative [facility]A Auto SS Clarity (U) Clear (09/16/23 3:39 PM) Normal Clear [facility] UA Auto SS Color (U) Straw *ABN* (09/16/23 3:39 PM) Invalid Interpretation Code Yellow [facility]A Auto SS Crystals LM Ql (Urine sed) Present (09/16/23 3:39 PM) Normal [facility]A Auto SS Epithelial cells.squamous LM.HPF (Urine sed) [#/Area] 0-2 /HPF Normal 0-2/HPF [facility] UA Aut o SS Glucose Test strip (U) [Mass/Vol] Negative (09/16/23 3:39 PM) Normal Negative [facility] UA Auto SS Hemoglobin Ql (U) Negative (09/16/23 3:39 PM) Normal Negative [facility] UA Auto SS Ketones (U) [Mass/Vol] Trace *ABN* (09/16/23 3:39 PM) Invalid Interpretation Code Negative [facility] UA Auto SS [place].plasma/[place] .RBC (Bld) [Mass ratio] 0-3 /HPF Normal 0-3/HPF [facility] UA Auto SS Nitrite Ql (U) Negative (09/16/23 3:39 PM) Normal Negative [facility] UA Auto SS pH (U) 7.0 *NA* (09/16/23 3:39 PM) Invalid Interpretation Code 5.0 - 9.0 [facility] UA Auto SS Protein (U) [Mass/Vol] Negative (09/16/23 3:39 PM) Normal Negative [facility] UA Auto SS Specific gravity (U) [Rel density] <=1.005 *NA* (09/16/23 3:39 PM) Invalid Interpretation Code 1.005 - 1.030 [facility]A Auto SS UA Spec Desc Clean Catch (09/16/23 3:39 PM) Normal [facility]A Auto SS Urobilinogen Qn (U) 0.6707467 {Rahel'U}/dL Normal 0.0 - 1.0 EU/dL [facility] UA Auto SS WBC Auto Ql (U) Negative (09/16/23 3:39 PM) Normal Negative [facility] UA Auto SS WBC LM.HPF (Urine sed) [#/Area] 0-5 /HPF Normal 0-5/HPF [facility] UA Auto SS eGFRon 09-16-2023 GFR/1.73 sq M.predicted among non-blacks MDRD (S/P/Bld) [Vol rate/Area] 62 mL/min/1.73 m2 Normal >=59 [facility] Comment on above: Order Comment: Order added by Discern Expert. 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 Kidney failure is indicated at less than 15 mL/min/1.73m2. Performed By: #### 1 [id number], [id number], [id number], [id number], [id number] ####[facility] [address] [place] [address] Consent for Treatmenton 06-02 Consent for Treatment [id number] .[id number]:127 Normal [facility] Discharge Instructionson Discharge Instructions [id number]:127 Normal [facility] ED Clinical Summaryon 2022 ED Clinical Summary [address] [address] ED Clinical Summary Person Information Name: VANE PARIS Angelina/[facility] Age: 87 Years : 1935 Sex: Female Language: Eritrean PCP: SUHA GREWAL DO Marital Status: Phone: [phone] Visit Id: Visit Reason: Wound reevaluation with or without suture removal; POST OP ISSUES- LEFT FT INCISION OPENED Speciality: Acuity: 4 Enc Type: Emergency Med Service: Emergency Arrival: 06/26/2023 15:58:47 Discharge: 06/26/2023 16:45:31 LOS: 000 00:47 Checkin: 06/26/2023 15:58:47 Checkout: 06/26/2023 16:45:31 Dispo Type: Home (Routine DC) EVENTS: Event Name Event Status Request Date/Time Start Date/Time Complete Date/Time Arrive Complete 06/26/2023 15:58:47 06/26/2023 15:58:47 06/26/2023 15:58:47 Document Home Meds Request 06/26/2023 15:58:47 Triage Complete 06/26/2023 15:58:47 06/26/2023 16:10:33 06/26/2023 16:10:33 Bed Assign Complete 06/26/2023 16:04:39 06/26/2023 16:04:39 06/26/2023 16:04:39 Dr Exam Complete 06/26/2023 16:04:39 06/26/2023 16:05:36 06/26/2023 16:05:36 RN Exam Complete 06/26/2023 16:04:39 06/26/2023 16:12:41 06/26/2023 16:12:41 Registration Complete 06/26/2023 16:05:36 06/26/2023 16:13:48 06/26/2023 16:13:48 Dr Exam Complete 06/26/2023 16:06:27 06/26/2023 16:06:27 06/26/2023 16:06:27 Reg Complete Request 06/26/2023 16:13:48 Reg Bed Request Complete 06/26/2023 16:13:48 06/26/2023 16:13:48 06/26/2023 16:13:48 Discharge Complete 06/26/2023 16:24:17 06/26/2023 16:45:38 06/26/2023 16:45:38 Transfer Complete 06/26/2023 16:45:38 06/26/2023 16:45:38 06/26/2023 16:45:38 ADDRESS: [address] [place] [address] [place] [id number] PHYS DOC NOTES: MEDICAL INFORMATION: Prescriptions Given: New Medications [facility] 1984, [address] [place], [place] [id number], [phone] cephalexin (Keflex 500 mg Cap) 1 Capsules By Mouth every 12 hours. Refills: 0. Medications to Continue with No Changes Other Medications acetaminophen (Tylenol 8 Hour Caplet 650 mg oral tablet, extended release) 1 Tablets By Mouth every 8 hours as needed as needed for pain. aspirin (aspirin 81 mg oral tablet) 1 Tablets By Mouth every day. cholecalciferol (Vitamin D 400 IU) 400 International unit By Mouth every day. cyanocobalamin (cyanocobalamin 1000 mcg oral tablet) 1 Tablets By Mouth Wednesday & Wednesday. diphenhydrAMINE-ibupr ofen (Ibuprofen PM) 1 tab By Mouth once a day (at bedtime) as needed Insomnia. meclizine (meclizine 12.5 mg Tab) 1 Tablets By Mouth 3 times a day as needed for dizziness. Refills: 0. PATIENT EDUCATION INFORMATION: Instructions: Wound Care, Adult Follow up: With: Address: When: Adelfo SHOEMAKER - [facility], [facility], [address], [place] [address] 0 Business (1) In 3 days 06/29/2023 With: Address: When: SUHA GREWAL [address] [place] [address] Business (1) In 3 days 06/29/2023 Comments: Follow-up with your primary care provider in 3 to 5 days. If symptoms worsen, do not improve, or new symptoms arise please report back to emergency department for further evaluation. DIAGNOSIS: Wound of left foot Normal [facility] ED Note-Physicianon 06-26-20 ED Note-Physician Basic Information Time Seen: You HERNANDEZ, Otto Monterroso 06/26/2023 16:05 Chief Complaint foot surgery 04/08/[address] Dickens, pt. states incision opened today with small amount of bleeding. denies further c/o. History of Present Illness A 87-year-old female reports to the emergency department with a chief complaint of incision opening up today, with small amount of bleeding. Reports that she had foot surgery on April [address] Yeison Ernst. She states that today when she was in the shower, it seemed like it opened up. Reports that he has a small amount of bleeding with it. Reports that the blood is like a sticky/stringy like blood. Denies any fevers chills nausea or vomiting. Denies any injury to this area. Denies being diabetic. States that the only thing she takes is a baby aspirin. Just want to get checked out, she does not know what to do. Review of Systems A 10 point review of systems is negative except as noted above. Medical and Surgical History: Reviewed and noted Social history: Lives at home Family History: Reviewed. Tobacco: Denies, former Physical Exam Vitals & Measurements T: 36.9 ?C(Oral) HR: 99(Peripheral) RR: 16 BP: 128/102 SpO2: 98% HT: 155 cm WT: 53.8 kg BMI: 22.39 General: The patient appears well and in no apparent distress. Patient is resting comfortably on bed. Afebrile Skin: Warm, dry, no pallor noted. There is a very small 0.5 cm open wound of the left anterior aspect of the left foot. No active bleeding noted. Very mild discharge is noted. No signs of superficial infection. Head: Normocephalic, atraumatic Neck: No JVD Eye: PERRLA, EOMI ENT: Moist mucus membranes Cardiovascular: Regular rate normal peripheral perfusion. Pedal pulses +2 bilaterally Respiratory: No respiratory distress no accessory muscle use no obvious audible wheezing Chest Wall: no deformity Musculoskeletal: normal ROM, no deformity, no swelling GI: No obvious distention Neurological: A&O moves all extremities equal strength and symmetry Psychiatric: Cooperative and appropriate Medical Decision Making MEDICAL DECISION MAKING Number and Complexity of Problems Differential Diagnosis: [] [facility] Data External documents reviewed: [] My EKG interpretation: [] My CT interpretation: [] My X-ray interpretation: [] My Ultrasound interpretation: [] Decision rules/scores evaluated: [] Discussed with: [] Treatment and Disposition ED Course: A 87-year-old female reports emerged department with a chief complaint of a wound/incision opening up. Reports 7-day after she was in the shower. Denies any fevers chills nausea or vomiting. On physical exam there is a very small wound that has opened up. Very minimal bleeding. Patient on any blood thinners. Due to her concerns, I did place the patient on antibiotic for any bacterial coverage. I discussed because that this is incision and wound, we would not be sewing it back up. Patient was understanding. She will be placed on Keflex for antibiotic coverage. Discussed ultimately she is to follow-up with wound care or with Dr. Dickens. She was understanding. Discussed return precautions. Follow-up with your primary care provider in 3 to 5 days. If symptoms worsen, do not improve, or new symptoms arise please report back to emergency department for further evaluation. The patient was understanding and agreeable to plan moving forward. Shared decision making: [] Code status: [] Assessment/Plan Wound of left foot (S91.302A: Unspecified open wound, left foot, initial encounter) Orders: cephalexin, 500 mg = 1 cap(s), Oral, q12hr, # 20 cap(s), Refills(s) 0, Pharmacy: [facility] 1984, 155, cm, 06/26/23 16:10:00 EDT, Height/Length Dosing, 53.8, kg, 06/26/23 16:10:00 EDT, Weight Dosing Disposition Plan Patient Discharge Condition Stable Discharge Disposition To home Discharge Prescription List Prescriptions Keflex 500 mg Cap, 500 mg= 1 cap(s), Oral, q12hr Follow-up With When Contact Information Adelfo Dickens In 3 days 06/29/2023 EDT [facility] - [facility] [address] [place] [address]- 0 Business (1) Additional Instructions: SUHAArti GARZACARMINA In 3 days 06/29/2023 EDT [address] [place] [address]- Business (1) Additional Instructions: Follow-up with your primary care provider in 3 to 5 days. If symptoms worsen, do not improve, or new symptoms arise please report back to emergency department for further evaluation. Patient Education Wound Care, Adult Attestation Patient seen and evaluated by the physician assistant district attorney. Attending physician was present in the emergency department and supervised care. This visit was performed by both the physician and an APC. I performed all aspects of the MDM as documented. This report was transcribed using voice recognition software. Every effort was made to ensure accuracy, however, inadvertently computerized vp platforms (more content not included)... Normal [facility] Comment on above: Result Comment: Elec tronically Signed By: Otto Orta PA-C\.br\Date and Time Signed: 06/26/23 18:22 EDT\.br\Electronically Co-Signed By: Miller Waggoner DO.br\Date and Time Co-Signed: 06/26/23 19:23 EDT ED Patient Education Noteon 06-26-2023 ED Patient Education Note Dermatology Wound Care, Adult Taking care of your wound properly can help to prevent pain, infection, and scarring. It can also help your wound heal more quickly. Follow instructions from your health care provider about how to care for your wound. Supplies needed: ? Soap and water. ? Wound cleanser, saline, or germ-free (sterile) water. ? Gauze. ? If needed, a clean bandage (dressing) or other type of wound dressing material to cover or place in the wound. Follow your health care provider's instructions about what dressing supplies to use. ? Cream or topical ointment to apply to the wound, if told by your health care provider. How to care for your wound Cleaning the wound Ask your health care provider how to clean the wound. This may include: ? Using mild soap and water, a wound cleanser, saline, or sterile water. ? Using a clean gauze to pat the wound dry after cleaning it. Do not rub or scrub the wound. Dressing care ? Wash your hands with soap and water for at least 20 seconds before and after you change the dressing. If soap and water are not available, use hand photography coordinator. ? Change your dressing as told by your health care provider. This may include: ? Cleaning or rinsing out (irrigating) the wound. ? Application of cream or topical ointment, if told by your health care provider. ? Placing a dressing over the wound or in the wound (packing). ? Covering the wound with an outer dressing. ? Leave stitches (sutures), stefani, skin glue, or adhesive strips in place. These skin closures may need to stay in place for 2 weeks or longer. If adhesive strip edges start to loosen and curl up, you may trim the loose edges. Do not remove adhesive strips completely unless your health care provider tells you to do that. ? Ask your health care provider when you can leave the wound uncovered. Checking for infection Check your wound area every day for signs of infection. Check for: ? More redness, swelling, or pain. ? Fluid or blood. ? Warmth. ? Pus or a bad smell. Follow these instructions at home Medicines ? If you were prescribed an antibiotic medicine, cream, or ointment, take or apply it as told by your health care provider. Do not stop using the antibiotic even if your condition improves. ? If you were prescribed pain medicine, take it 30 minutes before you do any wound care or as told by your health care provider. ? Take kqjk-fat-alqokfn and prescription medicines only as told by your health care provider. Eating and drinking ? Eat a diet that includes protein, vitamin A, vitamin C, and other nutrient-rich foods to help the wound heal. ? Foods rich in protein include meat, fish, eggs, dairy, beans, and nuts. ? Foods rich in vitamin A include carrots and dark green, leafy vegetables. ? Foods rich in vitamin C include citrus fruits, tomatoes, broccoli, and peppers. ? Drink enough fluid to keep your urine pale yellow. General instructions ? Do not take baths, swim, or use a hot tub until your health care provider approves. Ask your health care provider if you may take showers. You may only be allowed to take sponge baths. ? Do not scratch or pick at the wound. Keep it covered as told by your health care provider. ? Return to your normal activities as told by your health care provider. Ask your health care provider what activities are safe for you. ? Protect your wound from the sun when you are outside for the first 6 months, or for as long as told by your health care provider. Cover up the scar area or apply sunscreen that has an SPF of at least 30. ? Do not use any products that contain nicotine or tobacco. These products include cigarettes, chewing tobacco, and vaping devices, such as e-cigarettes. If you need help quitting, ask your health care provider. ? Keep all follow-up visits. This is important. Contact a health care provider if: ? You received a tetanus shot and you have swelling, severe pain, redness, or bleeding at the injection site. ? Your pain is not controlled with medicine. ? You have any of these signs of infection: ? More redness, swelling, or pain around the wound. ? Fluid or blood coming from the wound. ? Warmth coming from the wound. ? A fever or chills. ? You are nauseous or you vomit. ? You are dizzy. ? You have a new rash or hardness around the wound. Get help right away if: ? You have a red streak of skin near the area around your wound. ? Pus or a bad smell coming from the wound. ? Your wound has been closed with stefani, sutures, skin glue, or adhesive strips and it begins to open up and separate. ? Your wound is bleeding, and the bleeding does not stop with gentle pressure. These symptoms may represent a serious problem that is an emergency. Do not wait to see if the symptoms will go away. Get medical help right away. Call your local emergency services (911 in the [place] Do not drive yourself to the hospital. Summary ? Alsaray (more content not included)... Normal [facility] ED Patient Summaryon 023 ED Patient Summary [address] [address] Patient Discharge Instructions Person Information Name: VANE PARIS Age: 87 Years Arrival Date: 06/26/2023 15:58:47 Discharge Diagnosis: Wound of left foot Primary Care Physician: SUHA GREWAL DO Provider Information Primary Provider: Miller Waggoner DO Advanced Engineering Program Manager:None The exam and treatment you received in the Emergency Department were for an urgent problem and are not intended as complete care. It is important that you follow up with a doctor, nurse practitioner, or physician?s assistant district attorney for ongoing care. If your symptoms become worse or you do not improve as expected and you are unable to reach your usual health care provider, you should return to the Emergency Department. We are available 24 hours a day. VANE PARIS has been given the following list of patient education materials, prescriptions and follow-up instructions: Follow-up Instructions: With: Address: When: Adelfo SHOEMAKER - [facility], [facility], [address] [facility], [facility], [place] [address] 0 Business (1) In 3 days 06/29/2023 With: Address: When: SUHA GREWAL [address] [facility], [facility] [address] [place] [address] Business (1) In 3 days 06/29/2023 Comments: Follow-up with your primary care provider in 3 to 5 days. If symptoms worsen, do not improve, or new symptoms arise please report back to emergency department for further evaluation. In the event that this physician does not participate in your insurance network, please consult with your insurance company to find a nearby participating provider. Patient Education Materials: Wound Care, Adult A MESSAGE TO ALL PATIENTS REGARDING OPIOIDS PRESCRIPTION OPIOIDS: WHAT YOU NEED TO KNOW Prescription opioids can be used to help relieve pbyjajdc-fy-seuxll pain and are often prescribed following a surgery or injury, or for certain health conditions. These medications can be an important part of the treatment but also come with serious risks. It is important to work with your healthcare provider to make sure you are getting the safest, most effective care. WHAT ARE THE RISKS AND SIDE EFFECTS OF OPIOID USE? Prescription opioids carry serious risks of addiction and overdose, especially with prolonged use. An opioid overdose, often marked by slowed breathing, can cause sudden . The use of prescription opioids can have a number of side effects as well, even when taken as directed: ? Tolerance?meaning you might need to take more of the medication for the same pain relief ? Physical dependence?meaning you have symptoms of withdrawal when a medication is stopped ? Increased sensitivity to pain ? Constipation ? Nausea, vomiting, and dry mouth ? Sleepiness and dizziness ? Confusion ? Depression ? Low levels of testosterone that can result in lower sex drive, energy, and strength ? Itching and sweating RISKS ARE GREATER WITH: ? History of drug misuse, substance use disorder, or overdose ? Mental health conditions (such as depression or anxiety) ? Sleep apnea ? Older age (65 years and older) ? Avoid alcohol while taking prescription opioids. Also, unless specifically advised by your health care provider, medications to avoid include: ? Benzodiazepines (such as Xanax or Valium) ? Muscle relaxants (such as Soma or Flexeril) ? Hypnotics (such as Ambien or Lunesta) ? Other prescription opioids KNOW YOUR OPTIONS Talk to your health care provider about ways to manage your pain that don?t involve prescription opioids. Some of these options may actually work better and have fewer risks and side effects. Options may include: ? Pain relievers such as acetaminophen, ibuprofen, and naproxen ? Some medication that are also used for depression or seizures ? Physical therapy and exercise ? Cognitive behavioral therapy, a psychological, goal-directed approach, in which patients learn how to modify physical, behavioral, and emotional triggers of pain and stress. IF YOU ARE PRESCRIBED OPIOIDS FOR PAIN: ? Never take opioids in greater amounts or more often than prescribed. ? Follow up with your primary health care provider. o Work together to create a plan on how to manage your pain. o Talk about ways to help manage your pain that don?t involve prescription opioids. o Talk about any and all concerns and side effects. ? Help prevent misuse and abuse o Never sell or share prescription opioids. o Never use another person?s prescription opioids. ? Store prescription opioids in a secure place and out of reach of others (this may include visitors, children, friends, and family). ? Safely dispose of unused prescription opioids: Find your community drug take-back program or your pharmacy mail-back program, or flush them down the toilet, followin (more content not included)... Normal [facility] Auto Diffon 06-07-2023 Basophils/100 WBC (Bld) 0.8 % Normal 0.0-2.0 [facility] Comment on above: Order Comment: Order Added by Discern Expert. Performed By: #### 2 666848, 8257203, 2341987, 113021095, 93968162, 6092949, 0606141, 9704674, 5469568 #### [facility] [address] [place] [address] Basophils/Leukocytes Auto (Bld) [Pure # fraction] 0.0 E9/L Normal 0.0-0.2 [facility] Comment on above: Order Comment: Order Added by Discern Expert. Performed By: #### 2 949032, 3122836, 7980367, 250921258, 12022507, 2689716, 9328467, 7434719, 1157628 #### [facility] [address] [place] [address] Eosinophils/100 WBC (Bld) 0.9 % Normal 0.0-8.0 [facility] Comment on above: Order Comment: Order Added by Discern Expert. Performed By: #### 2 478221, 3672246, 7492092, 811403819, 19829595, 4211943, 8623213, 4187787, 3805772 #### [facility] [address] [place] [address] Eosinophils/Leukocytes Auto (Bld) [Pure # fraction] 0.0 E9/L Normal 0.0-0.5 [facility] Comment on above: Order Comment: Order Added by Discern Expert. Performed By: #### 2 346540, 2901884, 0974003, 508813469, 99725227, 7411070, 4630130, 2987259, 2789583 #### [facility] [address] [place] [address] Lymphocytes/100 WBC (Bld) 36.8 % Normal 14.0-50.0 [facility] Comment on above: Order Comment: Order Added by Discern Expert. Performed By: #### 2 507992, 9221100, 9883945, 343038929, 34598676, 0917154, 1607042, 4126976, 7697367 #### [facility] [address] [place] [address] Lymphocytes/Leukocytes Auto (Bld) [Pure # fraction] 1.9 E9/L Normal 1.0-4.0 [facility] Comment on above: Order Comment: Order Added by Discern Expert. Performed By: #### 2 553044, 0964020, 1363959, 870512065, 92388481, 6576509, 3519985, 9261431, 0809562 #### [facility] [address] [place] [address] Monocytes/100 WBC (Bld) 5.9 % Normal 4.0-14.0 [facility] Comment on above: Order Comment: Order Added by Discern Expert. Performed By: #### 2 149387, 3575158, 0529474, 223878987, 60058909, 5735335, 6659735, 5562601, 1862435 #### [facility] [address] [place] [address] Monocytes/Leukocytes Auto (Bld) [Pure # fraction] 0.3 E9/L Normal 0.2-1.0 [facility] Comment on above: Order Comment: Order Added by Discern Expert. Performed By: #### 2 992541, 4505301, 5389969, 784664658, 63185235, 3487860, 9469826, 1221601, 7051815 #### [facility] [address] [place] [address] Neutrophils/100 WBC (Bld) 55.6 % Normal 36.0-75.0 [facility] Comment on above: Order Comment: Order Added by Discern Expert. Performed By: #### 2 407523, 2882566, 2703669, 789815939, 40534882, 2963805, 4088440, 4958337, 3501063 #### [facility] [address] [place] [address] Neutrophils/Leukocytes Auto (Bld) [Pure # fraction] 2.8 E9/L Normal 2.0-7.5 [facility] Comment on above: Order Comment: Order Added by Discern Expert. Performed By: #### 2 413561, 7927915, 7335073, 939489612, 73039110, 4065731, 5036734, 0130896, 7149723 #### [facility] [address] [place] [address] CBC w/ Auto Diffon 3 Erythrocyte distribution width (RBC) [Ratio] 14.1 % Normal 10.9-14.2 [facility] Comment on above: Performed By: #### 2 679598, 1016130, 5787552, 230717022, 90520954, 2139710, 1736086, 4053854, 5000201 #### [facility] [address] [place] [address] Hematocrit (Bld) [Volume fraction] 42.4 % Normal 34.0-46.0 [facility] Comment on above: Performed By: #### 2 098837, 4451757, 8927340, 720229710, 84784037, 4075732, 7780511, 4557849, 2795829 #### [facility] [address] [place] [address] Hemoglobin (Bld) [Mass/Vol] 14.2 g/dL Normal 12.0-16.0 [facility] Comment on above: Performed By: #### 2 264882, 1683962, 5711168, 344110264, 39793372, 0884142, 8924500, 0815732, 3545086 #### [facility] [address] [place] [address] MCH (RBC) [Entitic mass] 28.9 pg Normal 27.0-34.0 [facility] Comment on above: Performed By: #### 2 669404, 5552452, 6072751, 180642061, 32312532, 2453249, 4344846, 6132309, 0621363 #### [facility] [address] [place] [address] MCHC (RBC) [Mass/Vol] 33.5 g/dL Normal 31.4-36.0 [facility] Comment on above: Performed By: #### 2 228688, 2437001, 8895301, 167234801, 82819210, 4789475, 5542166, 0543038, 3360664 #### [facility] [address] [place] [address] MCV (RBC) [Entitic vol] 86.4 fL Normal 80.0-100.0 [facility] Comment on above: Performed By: #### 2 539702, 3111939, 9361699, 856453672, 91242490, 6904184, 7659496, 0851987, 8452679 #### [facility] [address] [place] [address] Platelet mean volume (Bld) [Entitic vol] 8.3 fL Normal 6.4-10.8 [facility] Comment on above: Performed By: #### 2 452716, 4423285, 4640757, 138542756, 36682833, 5275788, 9795597, 5262210, 6536233 #### [facility] [address] [place] [address] Platelets (Bld) [#/Vol] 162.0 E9/L Normal 150.0-500.0 [facility] Comment on above: Performed By: #### 2 625269, 6690469, 2966632, 243299245, 70680547, 1173567, 8830965, 2144346, 4193662 #### [facility] [address] [place] [address] RBC (Bld) [#/Vol] 4.9 E12/L Normal 4.3-5.9 [facility] Comment on above: Performed By: #### 2 234098, 9152160, 1970132, 893924805, 26686633, 0717642, 2315574, 2949145, 8035612 #### [facility] [address] [place] [address] WBC corrected for nucl RBC Auto (Bld) [#/Vol] 5.1 E9/L Normal 4.0-11.0 [facility] Comment on above: Performed By: #### 2 912660, 0259797, 3983465, 038049953, 82106106, 1734826, 6636095, 2214179, 1907884 #### [facility] [address] [place] [address] CMPon 06-07-2023 Albumin [Mass/Vol] 4.2 g/dL Normal 3.3-5.0 [facility] Comment on above: Performed By: #### 2 368474, 3875396, 7308793, 355599621, 02529628, 4049189, 5644616, 5185065, 0749437 #### [facility] [address] [place] [address] Albumin/Globulin (S) [Mass conc ratio] 1.4 Normal 1.1-2.2 [facility] Comment on above: Performed By: #### 2 932134, 0616034, 5028700, 210902054, 00471112, 2565198, 8537475, 3261383, 8457678 #### [facility] [address] [place] [address] ALP [Catalytic activity/Vol] 53 Int._Unit/L Normal 21-98 [facility] Comment on above: Performed By: #### 2 977730, 0783186, 2617400, 249291605, 00749935, 1206962, 2824821, 1279984, 5823748 #### [facility] [address] [place] [address] ALT No additional P-5'-P [Catalytic activity/Vol] 15 Int._Unit/L Normal 6-46 [facility] Comment on above: Performed By: #### 2 669933, 8426472, 3606851, 402597187, 28180634, 7845195, 6024951, 7828542, 3300170 #### [facility] [address] [place] [address] Anion gap [Moles/Vol] 8 mmol/L Normal 6-16 [facility] Comment on above: Performed By: #### 2 050536, 6377645, 0483067, 781816066, 54485612, 7278402, 8739560, 9389621, 4320905 #### [facility] [address] [place] [address] AST [Catalytic activity/Vol] 18 Int._Unit/L Normal 5-43 [facility] Comment on above: Performed By: #### 2 067118, 4046511, 6923497, 961070055, 96873028, 8644403, 4864859, 5746157, 1218553 #### [facility] [address] [place] [address] Bilirubin [Mass/Vol] 1.0 mg/dL Normal 0.0-1.1 [facility] Comment on above: Performed By: #### 2 693705, 8650012, 1199140, 508568329, 22082936, 3084331, 1069594, 9689295, 7105294 #### [facility] [address] [place] [address] Calcium [Mass/Vol] 9.2 mg/dL Normal 8.9-11.1 [facility] Comment on above: Performed By: #### 2 069183, 0320817, 2693027, 508155604, 92734461, 8101886, 2102789, 7993279, 2306180 #### [facility] [address] [place] [address] Chloride [Moles/Vol] 109 mmol/L Normal 101-111 [facility] Comment on above: Performed By: #### 2 444712, 5656840, 8091857, 896753844, 48579285, 4439426, 2904154, 0723952, 0766605 #### [facility] [address] [place] [address] CO2 [Moles/Vol] 29 mmol/L Normal 21-31 [facility] Comment on above: Performed By: #### 2 349627, 7703417, 3289649, 390386178, 25497535, 8229651, 4890725, 3398101, 2907748 #### [facility] [address] [place] [address] Creatinine [Mass/Vol] 0.8 mg/dL Normal 0.5-1.3 [facility] Comment on above: Performed By: #### 2 008969, 9061047, 6951796, 979193923, 79128384, 8094222, 8805307, 2639217, 4489404 #### [facility] [address] [place] [address] Globulin (S) [Mass/Vol] 2.9 g/dL Normal 1.4-4.0 [facility] Comment on above: Performed By: #### 2 760427, 7621712, 4597053, 978686057, 98918453, 3415608, 1840820, 8979621, 0046678 #### [facility] [address] [place] [address] Glucose [Mass/Vol] 97 mg/dL Normal 55-199 [facility] Comment on above: Result Comment: If t his glucose result represents a fasting glucose, interpretation should refer to the following reference range: 55-99 mg/dL Performed By: #### 2 252045, 0091369, 0227632, 248072377, 73425270, 2275973, 9487658, 8045262, 7225440 #### [facility] [address] [place] [address] Potassium [Moles/Vol] 4.5 mmol/L Normal 3.5-5.3 [facility] Comment on above: Performed By: #### 2 322974, 0895894, 2278418, 086651637, 56420685, 4314394, 2584269, 8349119, 8335761 #### [facility] [address] [place] [address] Protein [Mass/Vol] 7.1 g/dL Normal 6.0-7.8 [facility] Comment on above: Performed By: #### 2 719197, 9956746, 0578969, 897211154, 44474595, 5494184, 3755782, 8194585, 2712960 #### [facility] [address] [place] [address] Sodium [Moles/Vol] 141 mmol/L Normal 135-145 [facility] Comment on above: Performed By: #### 2 689727, 6029124, 8947619, 920721520, 57418664, 3427132, 6753353, 5249713, 7640063 #### [facility] [address] [place] [address] Urea nitrogen [Mass/Vol] 21 mg/dL Normal 5-21 [facility] Comment on above: Performed By: #### 2 771031, 5881659, 7279322, 978118072, 19707422, 7864150, 6119073, 8113204, 1408587 #### [facility] [address] [place] [address] Urea nitrogen/Creatinine [Mass ratio] 26 No Units High 10-20 [facility] Comment on above: Performed By: #### 2 309561, 0435688, 0503373, 735590184, 10735766, 9353746, 3584217, 0159488, 6821817 #### [facility] [address] [place] [address] Consent for Treatmenton Consent for Treatment [id number]#1 .00CD:127 Normal [facility] Free T4on 06-07-2023 Free T4 [Mass/Vol] 0.98 ng/dL Normal 0.58-1.64 [facility] Comment on above: Performed By: #### 2 594354, 4426987, 4846720, 604335584, 28308059, 4363338, 5981238, 5643580, 5539385 ####[facility] [address] [place] [address] Lipid Panelon 06-07-2023 Cholesterol [Mass/Vol] 217 mg/dL High 120-200 [facility] Comment on above: Performed By: #### 2 450734, 0031105, 5087129, 379805780, 33172208, 3624201, 3531593, 0847097, 7447090 #### [facility] [address] [place] [address] Cholesterol in HDL [Mass/Vol] 53 mg/dL Invalid Interpretation Code [facility] Comment on above: Result Comment: HDL > or equal to 60 mg/dL: Low cardiovascular risk HDL < 40 mg/dL : High cardiovascular risk Performed By: #### 2 722850, 1096291, 8586394, 991893596, 61181913, 5215892, 8210820, 1639136, 2731080 #### [facility] [address] [place] [address] Cholesterol in LDL [Mass/Vol] 150 mg/dL High <=129 [facility] Comment on above: Performed By: #### 2 051720, 9532042, 5432987, 336017034, 93639363, 6013348, 2241619, 0538810, 7764952 #### [facility] [address] [place] [address] Cholesterol in VLDL [Mass/Vol] 23 mg/dL Normal 7-40 [facility] Comment on above: Performed By: #### 2 980705, 3784412, 9450465, 364532438, 12973790, 3853877, 4764018, 3243748, 3541581 #### [facility] [address] [place] [address] Triglyceride [Mass/Vol] 115 mg/dL Normal <=149 [facility] Comment on above: Performed By: #### 2 903828, 4098212, 9751307, 167537359, 96771933, 5159794, 3207363, 5494948, 2030016 #### [facility] [address] [place] [address] Physician Orderon 06-07-2023 Physician Order [id number] .00CD:127 Normal [facility] T3 Uptakeon 06-07-2023 T4 uptake [Mass/Vol] 42.0 % Normal 32.0-48.4 [facility] Comment on above: Performed By: #### 2 459043, 3515527, 4006935, 128635877, 49474985, 6730248, 5990415, 5301022, 3280668 ####[facility] [address] [place] [address] TSHon 06-07-2023 TSH Qn 2.46 m[IU]/L Normal 0.34-5.60 [facility] Comment on above: Performed By: #### 2 372169, 9960003, 5341078, 658671566, 17913211, 4728451, 3524276, 5698568, 7728861 ####[facility] [address] [place] [address] Vitamin D 25 Hydroxyon 06-07 25-hydroxyvitamin D3 [Mass/Vol] 57.1 ng/mL Normal 30.0-100.0 [facility] Comment on above: Result Comment: Vit norris D deficiency has been defined as a level of serum 25-OH vitamin D less than 20 ng/mL (1,2) by the [place] [employer] and an Endocrine Society practice guideline. The Endocrine Society further defined vitamin D insufficiency as a level between 21 and 29 ng/mL (2). 1. IOM ([place] of [employer]). 2010. Dietary reference intakes for calcium and D. [place]: The National Academies Press. 2. Kimani MF, Javed DAILEY, Law KING, et al. Evaluation, treatment, and prevention of vitamin D deficiency: an Endocrine Society clinical practice guideline. JCEM. 2010; 96 (7):1911-30. Performed By: #### 2 620222, 2040485, 9921367, 331000171, 60093612, 6797435, 5013391, 9391426, 0890999 ####[facility] [address] [place] [address] eGFRon 06-07-2023 GFR/1.73 sq M.predicted among non-blacks MDRD (S/P/Bld) [Vol rate/Area] 72 mL/min/1.73 m2 Normal >=59 [facility] Comment on above: Order Comment: Order added by Discern Expert. 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 Kidney failure is indicated at less than 15 mL/min/1.73m2. Performed By: #### 2 496235, 6299700, 2712413, 371472270, 67063011, 9791420, 0299466, 4949669, 8449202 #### [facility] [address] [place] [address] Physician Orderon 04-08-2023 Physician Order [id number]# 1.00CD:127 Normal [facility] Coding Summary.on 02-27-2023 Coding Summary. CD:[id number] W w+PGhlYWQ+RB9SIPZhN98 tzXTodV6xO1OWFLzIXtzm UWLZJSuHYuVmleAeUT4py XNjZXJu IC8+MK7oIVVjLhostOPrf 8J0kVY3O70svg8kNXfhuN P4CSLvVbOggclob6vkzXv 6IDcuNmluOyBt HLAcfV32YWT1kX40Eo56z EAggLUlw3gdbXp1JkCoBC PgKCW1dZqmBScbi5UkCCY aE09ocBUqy2T6 IXRbaJfliKKrByWjnPB2x U1fGJhlhanga6uaptjcXt o4bc03fIPia4M3fSN7O4R bjeF9HCXqrJEf TjuehFLZnD2zbsage8juq klpGcPtNIIvGKh9TXw2MU XvhAdwYgKbBI29BEX1COP iofRwJ6WnFKXa oOgaBfX0g3M5Sy0HE5RGD vnbM8YBUQUBCPnelXM+PC 81ia20F9TqYfbvMtk3QJP jHXU0eMH4tC7m MISlYTtkv7L7hWT4Q7Din iRrap8ps1duUVMoIZszR2 9jfTNwe2K3JPYsrBB9DQE auRwrCrAysK59 Oyc+GILarKjsn8QiYstsc 1otj7sydWe4DlllKAHcjr CjoGxlTOC2m9SnOk4yXSQ xaCK3dGC6qK4n RiUaZvQ1YCzwJ347QvZnu HQaPkyrV10uV3AczXO+PH TfOad4RRZukEwnHQ4dZ1I hZGRpbmctbGVm dXthVJ3tQUUoqwmgJPPjf F9hHCCcO0o4CxJqKnU9UP njA4RgYTPaqwujBd97dW9 rDrVkHkN1UBfu X0OjvfE5JILeeGEyWNvyF PM2U03zy3N2IOQvUMJlBF X9cZB1hX8moPypkeoewDU mdDsgdmVydGlj FCbfHLyxT747DJNalPkoP kNvZGluZyBEYXRlOiAgMD QvMjkvMjAyMzwvdGQ+PHR aYBC4wXzwFTIz kFZvWEnrWj8exMiphUdiK C9xFPYxlijwEUNboE5dHD JivLPgeDyhKB5wRLPfbru yr615CiEcCTM3 IVTttYGtV4TwaV8gWwUrI IZoCOAeV5NqeXLgJUuoB0 90GCshQwM1CPQoioNpL1R sLWFsaWduOiB0 i6O2Kz5Aq7DqythuZ7Hlj EZbAgMlIhclUYo4F0VbNb wvdHI+EH44MOLqBK57WDk 9YXH3xUeaBKef JACuO6RafS8fNfPoFRAjL GRkOyc+PHRhYmxlIHdpZH RoPScxMDAlJyBzdHlsZT0 bMf8tZMFrZUCq bVkojOEfDbEzu4bvWPYyW TqnZY6uzNzdV4QpsZT9EO Vbv2o9Qp16V04vD5QnbAC +XDNrlPX2lAM0 wD4hJwJqGeA0NRbsL110G iMeiNZjRzvit5rmu7mrwQ s7GmG2TCBtjtBvyFvzKHZ 5x3FqHm66D65o IHdpZHRoPSIxNSUiIHZhb Ttbal4dzI2aKo9+PGNvbC T3zGP6mY2aPaHhGeP3ICb aA345IjWoiIQm Miakd8eli6zzaGb8VjIxW UNoawCepFvwOXZ6f2JbZn 62R6RetFfgs6RdAlp8st0 8pLWay7O7wRS0 X8GbZLFydjamdYImcMrsY B5uTJJqyehfVLKfgG7vSI LsU2w8SjIuZxD3WSshS8I fcgB5UHVviJHg ZFJlxQIBgG9tpnmqp6zug tkxIsUuUHXzZEc1VTm6XS YhoFraVnSxTVZ3WaB3TPR 8bGDrnV8jaYws fbrxbE2qBpm+GRS6rLYzy NSSES9gUtkqcZZ+PHRkIH J3yTxpGJmeQAYvvB7vZFS zD2i9GqGeLcC2 JItiT2TdlvQ9SXJokHVpR IJawSYDgQ3aukrms9qnfg jhGoSgMSAxYCi7KRc9KBK saWduOiBsZWZ0 WiT0DII3mHMpgD7hoBwny ztxuS2nAjn+QmlydGggRG P7ZGy6U6UiGlw3KUIufCr fTR9elSOlSFhq Ah1kaDperUnnSF0gYJXtc obcp802CwSav4xmCUIlfJ DsLZhwQTZ6P51yt4S9ZYG kNDOcRUP3nSJ2 fV3vnEdlwbtbmHNbjWpru tCjcUzuSYihKHliH838JO DxpBcdSnLmPUk4Q8IgEqy 3ZOJyuKgpMX0z vXIbEWzvKb9vqYewtHexH A1vCYAssaall710VmWkv1 kkSRAiiZIeZSkzFLO1T74 my9S2MZMqUCIb MYX7dDF2tC1jqCfxvdyye GVmdDsgdmVydGljYWwtYW toJ806VMLawEbzKtInbTc 9I4DbYtj9ILBs dHksBK7ivFZiPRzeTd7bl MpmhLltBT5oLEMazhktf3 71CfOhf9maTCJjqXMdBJq cPGU1D62mb1D9 HSGkVBJnWRR8vDU7bE8ys GlnbjogbGVmdDsgdmVydG tnHAtbTJkeV525UQIctKy nPlBhdGllbnQg KMdfEBg8V0VqYjbfiVE+P N13XNYnJD42mUCikDKgz3 xkqTa0NqCzVTShAME8qSc xGLpbm1BhWMXs T11grYCls5Z1SHObqKsdg LPxGvMwxEQ8xT3zZYfvsv kem8reoxfrBmmjq8ypss4 4zJ46O02hIFkj ZHRoPSIzMCUiIHZhbGlnb m5wdV6uOx6+HMQchQT4wZ W7aL2tGTXjUeF8MZhdO85 9InRvcCIvPjxj b9oxq3gewId3FpW4RXXux gByyBzgDFT3a0GpMn74Q8 9sIHdpZHRoPSIyMCUiIHZ kkEvwcm3cqQ8r Ii8+HVPveTI9aSM7hH7hS nDwAeK8HKzxL465QeBbtD HwAmelT88oM9KotVT+PHR rRjn9SLYjtZjm MN7erSVyWPmjQr5jESJ2A nDhPqJgSKrwA6QxDDUkbx ueuzoboRD8OAVmPZVneM9 2Df7gcIfrWKZf jCOLsM8kjttxx7phdpfaC tClOYTjSBg2LVr2PDFbjC dsWgVrXQR6YqM3DMF8kCS aiU2ekIqbuliy tM0gZ1WbEVFvhjizZm36n B6lYwAaVuW9PSfgUri+Qk CSXHQHUSCGT64FTGYKUZ8 7DT35lPGld1E1 vVN8A9BlJNUetuxookpql HN3CNWeYMTsqT97wNJmCK ceSw8mq2M4s582VRUjSUG jwM54Bb5ibRea MUHogGPMaV5zkuolm6bwa ujjAcYvPIAzSWy8QDl6GR HqkHvbXgWiBJS8ErL2IKE 4uYQrzN9yrJyd yvstfC8nQoc+MDkvMTYvM TkzNzwvdGQ+KBSuFGK2wR wlJYugSOBslR0jGCDpK1l 2DrZpIoM6XMec D8CnDVMbigbeJs43tS6kC wPiKlI5SFkuS6NqfnY9MU VwqSRcTGbfBMQ0A89np7F 5UBBfNENoOWY5 qCT8mG4dtUwcamumtHLyr DsgdmVydGljYWwtYWxpZ2 10WLDptFqaJwr3GHkmZEF yLA23YI23mUOu x3Z6pKF0U9ByLUCnljvfk znjcMR3IUWvULBzvC41uS SzOXenWl3av4V1o414VOY qSABzxY94Ij1b eHawYRCwjCZFfB8ydqvxw 2yqnwhrJjCpXOIbWBu9DW p6AEEtvZapZsJeLEQ7OlN 0VGQ2kUHejK3m bDrwheeonJ5xQjn+RmVtY OvhFF50CV99dKUok9L9mB O9O3MuFGPjycivtjewvQW 4MKHnFAXwvD08 nHMgJUopVs1qm3H1q340Q DEwJZNakA84In1abHzuDK IpgLHPcI1ueuvvz3ezckt gIzAwMDAwMDt0 IQx8AAFkmChyNcKiCQR3P jW9MCO1pLHolF4dxGmnhm rikC8mHuk+Z8H4jMF5lRH udDwvdGQ+PC90 kl61Y6DpIkxtHxb9AJAmB YA9mBL4cX3sVCNdXZrno5 Q7kYH4L6QotuVzqf3fn1v dWEQcQCwoY57e yVXmq7A0DCCpnSE9QNSsd HyoJrXiuP88Aun+PGNvbG ovf8KlXxddy9eci5xegRs 9IjMwJSIgdmFs aBecBVD7w8NkFu62C89sY HdpZHRoPSIzMCUiIHZhbG bhyc1ehR3iAg2+PGNvbCB 8rGM0cI6ySxZr AwB7MPkvA591IpDheTChS uyya0mri4twbDw7EzGtRQ RqhuWckZjwQHK5g3RlZt6 8D6UsdUatc1Hq Glu7ix19vQFkk4A7pJW1A 3BhZGRpbmctbGVmdDogMC 5xXNYtgmrbYPTxlM6hSUJ gC0g6DdSqApK5 MIadB9EarnL0ACSbrHViV XOteGFQdR6qibdvq3bwiv umQbLtJJDzFQs9FCo6QJI saWduOiBsZWZ0 CqM0NZS4rHPpxF2gvWihk oslnB6tMlv+MSq1n4fjgK NaXI8pjAO3VQ72XS00sJD bw6S2nCE3J3Cg RRPooyrfcovkuCP3HLXsG KWjvH61Mg9omXwySt6mNC DjKXE4IFZuqLKvD7SziW6 yOiAjMDAwMDAw A2PgjBJqUQdjW476RZydQ sN2IJKukpBaS9HiACJoqD laYaC3y7M1Uu1XNF54CR5 7JZ94dIUew0J5 jKF2V7MkPOFdeintpwknt GS7VRAsLYZdaR08Gx6evJ voBq9eTXEaAPS8EYInlUN aP9UnpW9dFhNy OAMgPHAbC1UsmUYeSMprF 622ABhxKoO8HGSwlxXnC4 ZvHFXkvKmuWpZ7y8N5Xt5 MZg69LN68MJ30 hOWnl2C1zHD5P5XdMITyj irlxkmovDL0GKSuWUXzbA 95Oq0lzIscBe8vQGLwTSC 6WKFukPXwV8Lu xB0rHbBaHUCwMMKqN5Mzh ZPuHBgmA127HIdmRwB2EI AgfnAdS7GkQEBsjJgtNoF 1o1Q2Rh7TXDlq kzf5V3EfIemnjNS+PC90Y YNuXU55dCQjoVJgc6ppaH w2EjGbYHPvFWQ4gCydDFz op6DoQCWmX31e oTBgk9U7 (more content not included)... Normal [facility] MA Mamm Screen w/CAD if perf and 3D Bilon 02-25-2023 MA Mamm Screen w/CAD if perf and 3D Scott Exam Date/Time: 02/24/2023 11:56 EDT Reason for Exam: Z12.31 Report IMPRESSION: BIRADS 1 NEGATIVE, NORMAL INTERVAL FOLLOW-UP.12 MONTH RECALL. CLINICAL HISTORY: Z12.31. COMPARISON: 09/10/2020. COMMENT: Routine views and tomosynthesis views of both breasts were obtained. The breasts are heterogeneously dense, which may obscure small masses. No dominant breast mass nor neoplastic calcifications are noted. There has been no significant change when compared to the prior exam. The examination was reviewed with Computer Aided Detection. Breast Density: Yes Mammography is very important to your health. The current [employer] and National [employer] guidelines recommends annual mammography beginning at age 40. This facility utilizes a reminder system to ensure all patients receive reminder notifications at the appropriate time based on the recommendations of this exam. Board Certified Radiologists. Accredited by the ACR and FDA. Ordering Provider: SUHA GREWAL FINAL REPORT Dictated: 02/25/2023 12:38 pm Nav Vaughan M.D. Signed (Electronic Signature): 02/25/2023 12:38 pm Signed by: Nav Vaughan M.D. Transcribed by: RADHA Technologist: Arti Assessment: BI-RADS Category 1-Negative Recommendation: Normal interval follow-up Normal [facility] Consent for Treatmenton 01-31 Consent for Treatment [id number] [facility] [id number]#1 .00CD:127 Normal [facility] Coding Summary.on 02-22-2023 Coding Summary. CD:[id number] W w+PGhlYWQ+CX4WVMEkX35 ymZXloG9bQ4IQUHdRBjmm WADNGOrXKsXywaKyRH3ei XNjZXJu IC8+AT2qNKDePcsddEFtq 8B7zTF6D06yff6sOOfeeD Q8XDTwRbPpgnleb5wcmJi 6IDcuNmluOyBt EKVqpQ32OCQ1tG79Uw63i UHjoZPte6hsqOj9PcUaOI CoKLQ5qIbzSEnop6KnTJH vX18uuRKid0L6 DZIoaTgwqBRkJhMzwZE6h G4sOKlhlukwn4hmncmeWb x3ej37dQTxw6O5lYL1L9M qvxD4EBBxtCXn SgzzjEUNsV9cwgenf9nzj xaoLaTvGHGiAMl2UNj8DD SaqJewBzSmOE24SGJ7VBB xyiDgJ1KnPQVs fBumJfY4b2L3Ai7KW7EIK mmvE3DYBRMOMKxpvTS+PC 59st04P7CyGqunVxb4JFV mKPR6fGG3rD9i DWNjLNpph4Y8bKK3B9Kxf oTmfl5dd9cjOIOjVObyW2 5qxJMje1D3BSHgaVN0DEA ruZyfElUhuY78 Oyc+SJSvhKaip1SuRcaro 4ivd6mppRe9RprdJZFupo YuxTvwHMZ3q5AsWq4iBKU ycMB4hIT1dB8g MoKjIaD8TUviP718MnCdz QEoQuflG62hY4RpvSY+PH PjLhh3NHSjxJzvEE2bI8K hZGRpbmctbGVm mEaiDR3qPFMaqrkvUOTlf W1cRMWeM2i6EoEbUtU9VX nkQ3HcWAHajxxfNd49gI5 nQbCrSpK2WQqn P7JdcxD6JBYhdVBuIBkfB ST3L79rt2N1OGHiCPMmLQ J9wDQ2eI1ioEkvwkiwjNS mdDsgdmVydGlj CKjiMEunI646XWNjbRmdS kNvZGluZyBEYXRlOiAgMD QvMjQvMjAyMzwvdGQ+PHR sEBM2fSokGLBi fQDkDKjhBp1hfUnheVqeQ A0rVHIttpqcGXZnhM3zSE NzmKXuwCvhQA7wJBMkljm rx853HrSjBFR3 DIIgfUYnY3TrhT9wPpPjD ROyHJLgF3PbkYZdLHliL9 35KKyiHlE4GTKvrgJcK3R sLWFsaWduOiB0 i0Z7Sx5Pf7RfehgcD2Rsr XUyMsQoWbsqEQp1Z5QpBc wvdHI+VH08BAPtUJ83LEb 5PMJ3pFklXHtj MQImL8LbtS1kJeLbMPLxU GRkOyc+PHRhYmxlIHdpZH RoPScxMDAlJyBzdHlsZT0 wLd8oRUCwWGCg fBgiuWNlUwYek4npHQHnM EpsWT7nbRayP3TcfCT8FY Lhl8t5La35U31wT5YvqKZ +EBKilRY7tKB1 tD6oSsNmNnJ6TCytS810L oToeNGoJvhyt0nnq6gbtU k4HnT5NZBdqiIkpZphQPN 4n7QnUe37V64l IHdpZHRoPSIxNSUiIHZhb Yldwt2bpD6eSi2+PGNvbC S5oAZ1xX8zAdMuXfH3FUq kL891FdLywNOr Usxzb9slh1nohXq2GnDeZ ENfonPdmSfpECR9r8IxSe 86Y6FprYhag0MvElw3sc1 9jALfy6D4pPG0 B1QjQQAamtyehBHxeDdhS W9tGNSskxlqUVFliH4dQC JzN8y1QjThUwE2AErwO2T hgeW7SMQwuBOu TOUfkSRFjF1vnkrtf7txr riaOvGiOYHvSFa5UBe9BI TpiJlxAdHfHLK0UrN9VSS 3sOHimV1okLnr uusbkH0eXtr+QFO3sXRhx HOYIC0oXzdqqOJ+PHRkIH O9kIscWSykXLTpvZ2wRYG zF1j5FoCtBgI2 NZeeN2LefuJ1UZWehFYrK OPhmPJDrM5iexuat8ytmz xlIlYtFIXgHPo7BXs0DVC saWduOiBsZWZ0 DaI0UAL7zVXsxO2unDilg lfojF1yJne+QmlydGggRG E7RSr3U9YdKnw9QRAcoRp zUD8bkXBeLFjg Jm0ydVrrqGaoZT8wWRHzy kyuj692KyXol3kmZHHqoV DxLYmuFJM6U44db5O2NIS hLLEfGOE3vDO1 pE2eyLnmhyemnZHcxTpps sOcbFubHGhbIIvsE684LS ZwcHmfJlQlOYy3A5QcFan 3QUJurEpcJD9f jCGvNVziPq5ukMhwvJgoJ T6mOXGdrboin931OtItb4 leVOObaVYwSQhcHOF3I64 rt3I6FYXeUMIu EUB6gUB9vG3guBgtsahtj GVmdDsgdmVydGljYWwtYW kcQ688VLHdvSfpDiZtfBy 1E4PgVaj1YWGa tBwuHG8xoNWyUVvhIt5yx TdkgJeyOV9yPVItotixl1 62CwRwi4sfVTCidGPjYRq rJXR0B17cd9K7 MQUfIKCiQKZ1kCL5zD0am GlnbjogbGVmdDsgdmVydG rpBBnbGFrkF274XXImtUf nPlBhdGllbnQg KRkgVAs8Q5KxYyagcND+P F78RYXaHX79zTJvtBAbz5 azfKq8XdQnUOWaYJG8pFx jUHcza2NcPZFq V73huQWqr0U5WHArqAjoc KJwQtDecKY5lT0nQEcgpx cdd8kgysvpNzwml5zutt9 1aP93U55xJYnv ZHRoPSIzMCUiIHZhbGlnb y8rtI6cBd3+GERfuPR1vI I4kI2qTESvPfF7FCaiU69 9InRvcCIvPjxj q0ujg2eilKe4OqM0GWVdt rEpzOkfFCA4n7UqHu47Y7 9sIHdpZHRoPSIyMCUiIHZ urJlush3feN7w Ii8+QJNcxOC1aFB7pF7hH lViLgZ1FKarG479JwSmaL DsKgrxM44nX8DzyUZ+PHR lWgy0KASpmFvo EE1oyEWwODwxFv5nOWG4S kZvIvCaVXcaW1KfHDVuaw rvccexiOM0KKPtQVPqgY3 6Td8owFwpQLRb xQPWuR8sehcgh6bdqumqF kFgGUPuXCv9AZm2OQDwiF npHdZlKUO7KiK8OYN3vOI thE5ziGfmvaqs eX5jS5BgTCFodyoyLj35j X2rLpIiHsV7ECrlPhx+Qk PSNBTSFBCJD58CKOKAVP8 9CW75rHPpg6E3 pFF7Z3KpYCJwskumpicnm OX7BJQxNCGvjC41hGIfNX rzWn0jv0R9e761EDWgARV tyO40Zi3mkRey RECayGYJxR3xtmesj6ytp ksmTdWqHQOgSOk0GCl0NX ZhqZadRsYwCFY6OvT7QHW 1eDWiaS2ghCmk inaxtL8dNqy+MDkvMTYvM TkzNzwvdGQ+SEFlKRI7qC vhVPfhGCFclB2lINWxG3f 9RuHjHvN2ZNha C9MsLFCcqknsEl04hR7gX yHvViG8AXpvQ7BwksC4LP FenHRtFHgcQRQ2I98lg6U 1ZABqKIKpVDD2 pJB5oZ0dpPjqxzfapGMgf DsgdmVydGljYWwtYWxpZ2 54BSAubZwyZpq8SIfsPNJ zYW44GM25aCRg o5M4qVG3T5CbQVOppcbwg xsdiDE3KFLmFGTnbK62mK EuRQdyDu4ir9W4a766WKL vZFXtwF59Rp8d bCunEESnrSQYvZ6ivmjrz 1kzrrwqMyUsZBXlCQl4XY b2CXAfdUhtEiCtUSF0ArN 0ZRJ1zVXmeL5a iXbyyabklW9yMvp+RmVtY FbdLC27SE86yIPec5S3yG E6E4FeYGYrmlwucxpqhQM 6GZZmNREiwU58 bINzTAuuPd0xy0J7f668W ANiFAFbhO92Qh8qiCdaBZ ZcdZQHxM0lyywhn3bsyyj gIzAwMDAwMDt0 YIk4YCMzoDgaNlMbFNO1I zI2AZX5vPWarU6tvFpqya bzvY8pFjp+K9M7aOQ3sKA udDwvdGQ+PC90 kz20Z2HhUvvdMnp9BIJvZ ZL1tZC4tU8bUWCmAWudh4 J6nIN4E4TqwrZyyw7mi3w qRVTbHHbzM92l sRJnb2B9LXJdrPL0SEMzm YqxKaLlaD98Twv+PGNvbG ohi8TlPdpyn8ptg5pqzZc 9IjMwJSIgdmFs gOnoWFG9y5OeVs10O53hW HdpZHRoPSIzMCUiIHZhbG trle2jbT0zVb6+PGNvbCB 1sWP1eP2eNhMx LfZ9JAwjP644MiZbwKKtV wvvk6cid6szaHb4WdScPC AdqhZtnSqjAGZ2h5MiTj7 4D5DghJcrl2Lv Ime9ak86kQIes9R0qFL8D 3BhZGRpbmctbGVmdDogMC 4nRIPfueblMMCaeN6wLRZ gD9j3FlBhDyB7 JPxnP5TkkcM5MOOmzOQoR DAbbSEMlO2aorcds0ivya kuNeLeYGSvJQg5QGs4BQC saWduOiBsZWZ0 OnF3ECW7oAVzxW3jiHkks loydQ8rLem+ZDc3o7dieN XhFN7viNQ0XT94WD15rWG cv2Y7lLY0U7Nv UOAepgqbkerddVW7KFWcQ IEljM74Dg8ubCykNk3oXZ RsQKW9ZVRdzNTrU8CdxZ8 yOiAjMDAwMDAw Q4OtpVMmWUqsE763RGyuD oS4BKXqydSuQ3CcHVNwyU yhWlV4x6N8Zp8EPP77YP9 0FU63bAKyb7U5 fZU6Y2OlOUIqwypluyksk DY3RDBcUTWprZ36Gw3hcL rxHh8rWDPdVHZ8OIMwxAO hH6TlxS9lTcEv IDVfSRPlA1RkxFEgAChwB 244LRsxYwB8VMFgovUfH1 IyRSZbwPcaEmG4v9B6Ot3 MEi43CL05PA64 zKPna0Q3qSW0C7BeVXRuq vciwtperUW3UAYnVVErnT 10Uf9qdHqoGa4vUBIvQQX 6QQNwaKPwI8Sa tM6iKzEjUYLjNABjN6Uaw JQiPVnuK670XFubJzH4VS JymbYdB7TyEEZpdIlcYrI 0c8S5Xt5QLVtg fdc9F7ZhTdgbbYV+PC90Y GHrKG16oUVayVHfe7weaM a1EgKjQODuAYQ9dYcyLIm fz9KqVTAdD11k hMEkx7E6 (more content not included)... [facility] SARS IgGon 02-19-2023 SARS-CoV-2 (COVID-19) Ab [Interp] Negative Invalid Interpretation Code [facility] Comment on above: Result Comment: This sample does not contain detectable antibodies against the SARS-CoV-2 spike protein, including the receptor binding domain (RBD). This assay was performed using [employer](R) SARS-CoV-2 Trimeric S IgG assay. This test has not been FDA cleared or approved. This test has been authorized by FDA under an Emergency Use Authorization (EUA). This test is only authorized for the duration of the declaration that circumstances exist justifying the authorization of emergency use of in vitro diagnostics for detection and/or diagnosis of COVID-19 under Section 564(b)(1) of the Act, 21 U.S.C. 360bbb-3(b)(1), unless the authorization is terminated or revoked sooner. This test has been authorized only for detecting the presence of antibodies against SARS-CoV-2, not for any other viruses or pathogens. Performed at: [address] [id number] PhD Luis Miguel Pacheco Performed By: #### 2 [id number], SARS-CoV-2 Antibody, [facility] ####[id number] [place] [address] SARS-CoV-2 (COVID-19) IgG IA Qn <13.0 Invalid Interpretation Code Neg <13.0 [facility] Comment on above: Result Comment: This test has not been FDA cleared or approved. This test has been authorized by FDA under an Emergency Use Authorization (EUA). This test is only authorized for the duration of the declaration that circumstances exist justifying the authorization of emergency use of in vitro diagnostics for detection and/or diagnosis of COVID-19 under Section 564(b)(1) of the Act, 21 U.S.C. 360bbb-3(b)(1), unless the authorization is terminated or revoked sooner. This test has been authorized only for detecting the presence of antibodies against SARS-CoV-2, not for any other viruses or pathogens. Performed By: #### 2 [id number], SARS-CoV-2 Antibody, [facility] ####[facility] [address] [place] [address] CHEMISTRYOrdered By: SYSTEM SYSTEM on 02-18-2023 Cobalamin (Vitamin B12) [Mass/Vol] 903 pg/mL Normal 50 - 1500 pg/mL [facility] Remisol Consent for Treatmenton 01-31 Consent for Treatment [id number]#1 .00CD:127 Normal [facility] Physician Orderon 02-18-2023 Physician Order [id number]#1 .00CD:127 Normal [facility] Vit B12on 02-18-2023 Cobalamin (Vitamin B12) [Mass/Vol] 903 pg/mL Normal 50-1500 [facility] Comment on above: Performed By: #### 2 [id number], SARS-CoV-2 Antibody, lgG ####[facility] [address] [place] [address] Physician Orderon 02-10-2023 Physician Order [id number]#1 .00CD:127 Normal [facility] Superficial Wound Cultureon 11-23-2022 Superficial Wound Culture LEFT LOWER LEG No Growth 2 Days PERFORMED BY: [place] [address] PATHOLOGIST SEC ACCOUNTANT YAIR CLARKE M.D. [facility] Comment on above: Performed By: #### C US #### [address] CHEMISTRYOrdered By: SYSTEM SYSTEM on 08-04-2022 Free T4 [Mass/Vol] 0.83 ng/dL Normal 0.58 - 1. 64 ng/dL [facility] TSH Qn 4.00 m[IU]/L Normal 0.34 - 5.60 mcIU/mL [facility] CHEMISTRYOrdered By: SYSTEM SYSTEM on 03-10-2022 25-hydroxyvitamin D3 [Mass/Vol] 27.8 ng/mL Low 30.0 - 100.0 ng/mL [facility] Albumin [Mass/Vol] 4.1 g/dL Normal 3.3 - 5.0 gm/dL [facility] Albumin/Globulin [Mass ratio] 1.4 {ratio} Normal 1.1 - 2.2 [facility] ALP [Catalytic activity/Vol] 58 [iU]/d Normal 21 - 98 Int._Unit/L [facility] ALT No additional P-5'-P [Catalytic activity/Vol] 14 [iU]/d Normal 6 - 46 Int._Unit/L [facility] Anion gap [Moles/Vol] 11 mmol/L Normal 6 - 16 mEq/L [facility] AST [Catalytic activity/Vol] 14 [iU]/d Normal 5 - 43 Int._Unit/L [facility] Bilirubin [Mass/Vol] 1.4 mg/dL High 0.0 - 1 .1 mg/dL [facility] Calcium [Mass/Vol] 9.1 mg/dL Normal 8.9 - 11. 1 mg/dL [facility] Chloride [Moles/Vol] 106 mmol/L Normal 101 - 1 11 mmol/L [facility] Cholesterol [Mass/Vol] 214 mg/dL High 120 - 200 mg/dL [facility] Cholesterol in HDL [Mass/Vol] 47 mg/dL Invalid Interpretation Code [facility] Cholesterol in LDL [Mass/Vol] 135 mg/dL High <=129mg/dL [facility] Cholesterol in VLDL [Mass/Vol] 28 mg/dL Normal 7 - 40 mg/dL [facility] CO2 [Moles/Vol] 27 mmol/L Normal 21 - 31 mmol/L [facility] Cobalamin (Vitamin B12) [Mass/Vol] 920 pg/mL Normal 50 - 1500 pg/mL [facility] Creatinine [Mass/Vol] 0.9 mg/dL Normal 0.5 - 1.3 mg/dL [facility] GFR/1.73 sq M.predicted among blacks MDRD (S/P/Bld) [Vol rate/Area] mL/min/1.73 m2 Normal >=59mL/min/1 .73 m2 [facility] Chem S GFR/1.73 sq M.predicted among non-blacks MDRD (S/P/Bld) [Vol rate/Area] 60 mL/min/1.73 m2 Normal >=59mL/min/1 .73 m2 [facility] Chem S Globulin (S) [Mass/Vol] 2.9 g/dL Normal 1.4 - 4.0 gm/dL [facility] Glucose [Mass/Vol] 86 mg/dL Normal 55 - 199 mg/dL [facility] Potassium [Moles/Vol] 4.4 mmol/L Normal 3.5 - 5.3 mmol/L [facility] Protein [Mass/Vol] 7.0 g/dL Normal 6.0 - 7.8 gm/dL [facility] Sodium [Moles/Vol] 140 mmol/L Normal 135 - 145 mmol/L [facility] Triglyceride [Mass/Vol] 139 mg/dL Normal <=149mg/dL [facility] TSH Qn 3.12 m[IU]/L Normal 0.34 - 5.60 mcIU/mL [facility] Urea nitrogen [Mass/Vol] 15 mg/dL Normal 5 - 21 mg/dL [facility] Urea nitrogen/Creatinine [Mass ratio] 17 mg/mg Normal 10 - 20 [facility] HEMATOLOGYOrdered By: SYSTEM SYSTEM on 03-10-2022 Basophils/100 WBC (Bld) 1.0 % Normal 0.0 - 2.0 % [facility] HemeAutoSS Basophils/Leukocytes Auto (Bld) [Pure # fraction] 0.1 E9/L Normal 0.0 - 0.2 E9/L [facility]eAutoSS Eosinophils/100 WBC (Bld) 1.2 % Normal 0.0 - 8.0 % [facility]eAutoSS Eosinophils/Leukocytes Auto (Bld) [Pure # fraction] 0.1 E9/L Normal 0.0 - 0.5 E9/L [facility]eAutoSS Lymphocytes/100 WBC (Bld) 29.1 % Normal 14.0 - 50.0 % [facility]eAutoSS Lymphocytes/Leukocytes Auto (Bld) [Pure # fraction] 1.5 E9/L Normal 1.0 - 4.0 E9/L [facility]eAutoSS Monocytes/100 WBC (Bld) 7.2 % Normal 4.0 - 14.0 % [facility]eAutoSS Monocytes/Leukocytes Auto (Bld) [Pure # fraction] 0.4 E9/L Normal 0.2 - 1.0 E9/L [facility]AutoSS Neutrophils/100 WBC (Bld) 61.5 % Normal 36.0 - 75.0 % [facility]eAutoSS Neutrophils/Leukocytes Auto (Bld) [Pure # fraction] 3.2 E9/L Normal 2.0 - 7.5 E9/L [facility]eAutoSS HEMATOLOGYOrdered By: Heidi Vazquez on 03-10-2022 Erythrocyte distribution width (RBC) [Ratio] 13.6 % Normal 10.9 - 14.2 % [facility] Hematocrit (Bld) [Volume fraction] 42.0 % Normal 34.0 - 46.0 % [facility]eAuto[facility] Hemoglobin (Bld) [Mass/Vol] 14.3 g/dL Normal 12.0 - 16.0 gm/dL [facility] MCH (RBC) [Entitic mass] 29.4 pg Normal 27.0 - 34.0 pg [facility] MCHC (RBC) [Mass/Vol] 34.0 g/dL Normal 31.4 - 36.0 gm/dL [facility]eAuto[facility] MCV (RBC) [Entitic vol] 86.4 fL Normal 80.0 - 100.0 fL [facility]eAuto[facility] Platelet mean volume (Bld) [Entitic vol] 8.4 fL Normal 6.4 - 10.8 fL [facility]eAutoSS Platelets (Bld) [#/Vol] 153.0 E9/L Normal 150.0 - 500.0 E9/L [facility]AutoSS RBC (Bld) [#/Vol] 4.9 E12/L Normal 4.3 - 5.9 E12/L [facility] WBC corrected for nucl RBC Auto (Bld) [#/Vol] 5.3 E9/L Normal 4.0 - 11.0 E9/L [facility]Auto[facility] Vital Signs Date Time Vital Sign Value Performing Clinician Facility 10-10-2023 09:56-0500 Blood Pressure Location KERVIN ZAVALA [facility] 10-10-2023 09:56-0500 Body temperature 97.52 [degF] KERVIN ZAVALA [facility] 10-10-2023 09:56-0500 Diastolic blood pressure 62 mm[Hg] KERVIN ZAVALA [facility] 10-10-2023 09:56-0500 Heart rate 96 /min KERVIN GARZATIZ [facility] 10-10-2023 09:56-0500 SaO2% (BldA) [Mass fraction] 96 % KERVIN SALLY [facility] 10-10-2023 09:56-0500 Systolic blood pressure 106 mm[Hg] KERVIN SALLY [facility] 09-17-2023 15:11-0500 Hourly Rounding [facility] 09-17-2023 15:11-0500 Promise to Return [facility] 09-17-2023 14:18-0500 Hourly Rounding [facility] 09-17-2023 14:18-0500 Promise to Return [facility] 09-17-2023 13:35-0500 Hourly Rounding [facility] 09-17-2023 12:20-0500 Promise to Return [facility] 09-17-2023 11:20-0500 Heart rate 88 /min [facility] 09-17-2023 11:20-0500 SaO2% (BldA) [Mass fraction] 97 % [facility] 09-17-2023 11:20-0500 Body temperature 97.52 [degF] [facility] 09-17-2023 11:20-0500 Diastolic blood pressure 77 mm[Hg] [facility] 09-17-2023 11:20-0500 Mean blood pressure 94 mm[Hg] [place] 09-17-2023 11:20-0500 Systolic blood pressure 128 mm[Hg] [facility] 09-17-2023 08:23-0500 Heart rate 85 /min [facility] 09-17-2023 08:23-0500 SaO2% (BldA) [Mass fraction] 98 % [facility] 09-17-2023 08:23-0500 Body temperature 97.7 [degF] [facility] 09-17-2023 08:23-0500 Diastolic blood pressure 66 mm[Hg] [facility] 09-17-2023 08:23-0500 Mean blood pressure 87 mm[Hg] [place] 09-17-2023 08:23-0500 Systolic blood pressure 129 mm[Hg] [facility] 09-17-2023 04:00-0500 Heart rate 80 /min [facility] 09-17-2023 04:00-0500 SaO2% (BldA) [Mass fraction] 98 % [facility] 09-17-2023 04:00-0500 Body temperature 98.24 [degF] [facility] 09-17-2023 04:00-0500 Diastolic blood pressure 67 mm[Hg] [facility] 09-17-2023 04:00-0500 Mean blood pressure 78 mm[Hg] [place] 09-17-2023 04:00-0500 Systolic blood pressure 102 mm[Hg] [facility] 09-16-2023 20:31-0500 Body temperature 98.24 [degF] [facility] 09-16-2023 20:31-0500 Heart rate 86 /min [facility] 09-16-2023 17:30-0500 Mean blood pressure 99 mm[Hg] [place] 09-16-2023 17:30-0500 Respiratory rate 20 /min [facility] 11-16-2023 17:00-0500 Mean blood pressure 94 mm[Hg] Diane SILVA [facility] 09-16-2023 16:30-0500 Mean blood pressure 97 mm[Hg] Diane SILVA [facility] 09-16-2023 16:30-0500 [facility] rate 18 /[facility] 09-16-2023 11:40-0500 Body temperature 97.7 [degF] [facility] 11:40-0500 Heart rate 85 /min [facility] 06-26-2023 16:05-0400 Body temperature 98.42 [degF] Miller Waggoner [facility] 06-26-2023 16:05-0400 Diastolic blood pressure 102 mm[Hg] Miller Waggoner [facility] 06-26-2023 16:05-0400 Heart rate 99 /min Miller Waggoner [facility] 06-26-2023 16:05-0400 Respiratory rate 16 /min Miller Waggoner [facility] 06-26-2023 16:05-0400 SaO2% (BldA) [Mass fraction] 98 % Miller Waggoner [facility] 06-26-2023 16:05-0400 Systolic blood pressure 128 mm[Hg] Miller Waggoner [facility] 06-15-2022 14:30-0400 Body height 154.94 cm [employer] Other [employer] Other 06-15-2022 14:30-0400 Body mass index (BMI) [Ratio] 22.1 kg/m2 [email or web address] Other [employer] Other 06-15-2022 14:30-0400 Body temperature 97.6 [degF] Suha Carmina Other [employer] Other 06-15-2022 14:30-0400 Body weight 53.07 kg Suha [employer] Other [employer] Other 06-15-2022 14:30-0400 Diastolic blood pressure 70 mm[Hg] Suha Carmina Other [employer] Other 06-15-2022 14:30-0400 Respiratory rate 18 /min Suha [employer]mina Other [employer] Other 06-15-2022 14:30-0400 SaO2% (BldA) [Mass fraction] 96 % Suha [employer] Other [employer] Other 06-15-2022 14:30-0400 Systolic blood pressure 110 mm[Hg] Usha [employer] Other [employer] Other 06-08-2022 14:56-0400 Diastolic blood pressure 68 mm[Hg] Millerzuri Waggoner [facility] 06-08-2022 14:56-0400 Heart rate 83 /min Miller Waggoner [facility] 06-08-2022 14:56-0400 Mean blood pressure 85 mm[Hg] Miller Waggoner [facility] 06-08-2022 14:56-0400 Respiratory rate 14 /min Miller Waggoner [facility] 06-08-2022 14:56-0400 SaO2% (BldA) [Mass fraction] 98 % Miller Waggoner [facility] 06-08-2022 14:56-0400 Systolic blood pressure 118 mm[Hg] Miller Edilson [facility] 06-08-2022 13:00-0400 Diastolic blood pressure 78 mm[Hg] Miller Edilson [facility] 06-08-2022 13:00-0400 Mean blood pressure 93 mm[Hg] Millre Edilson [facility] 06-08-2022 13:00-0400 Systolic blood pressure 122 mm[Hg] Miller Edilson [facility] 06-08-2022 12:35-0400 Diastolic blood pressure 74 mm[Hg] Miller Edilson [facility] 06-08-2022 12:35-0400 Heart rate 85 /min Miller Edilson [facility] 06-08-2022 12:35-0400 Mean blood pressure 90 mm[Hg] Miller Edilson [facility] 06-08-2022 12:35-0400 Respiratory rate 16 /min Miller Edilson [facility] 06-08-2022 12:35-0400 SaO2% (BldA) [Mass fraction] 96 % Miller Waggoner [facility] 06-08-2022 12:35-0400 Systolic blood pressure 121 mm[Hg] Miller Edilson [facility] 06-08-2022 12:00-0400 Blood Pressure Location Miller Edilson [facility] 06-08-2022 11:27-0400 Body temperature 98.06 [degF] Miller Waggoner [facility] 06-08-2022 11:27-0400 Heart rate 86 /min Miller Waggoner [facility] 05-29-2022 12:30-0400 Body height 154.94 cm Suha Carmina Other [employer] Other 05-29-2022 12:30-0400 Body mass index (BMI) [Ratio] 21.92 kg/m2 Suha Carmina Other [employer] Other 05-29-2022 12:30-0400 Body temperature 97.9 [degF] Suha Carmina Other [employer] Other 05-29-2022 12:30-0400 Body weight 52.62 kg Suha Carmina Other [employer] Other 05-29-2022 12:30-0400 Diastolic blood pressure 80 mm[Hg] Suha Carmina Other [employer] Other 05-29-2022 12:30-0400 Respiratory rate 18 /min Suha Carmina Other [employer] Other 05-29-2022 12:30-0400 SaO2% (BldA) [Mass fraction] 98 % Suha Carmina Other [employer] Other 05-29-2022 12:30-0400 Systolic blood pressure 118 mm[Hg] Suha Carmina Other [employer] Other 05-26-2022 18:00-0400 Diastolic blood pressure 75 mm[Hg] Chino Day [facility] 05-26-2022 18:00-0400 Heart rate 100 /min Chino Day [facility] 05-26-2022 18:00-0400 Mean blood pressure 91 mm[Hg] Chino Damone [facility] 05-26-2022 18:00-0400 Respiratory rate 18 /min Chino Damone [facility] 05-26-2022 16:55-0400 Body temperature 98.6 [degF] Chino Shay [facility] 05-26-2022 16:55-0400 Diastolic blood pressure 85 mm[Hg] Chino Shay [facility] 05-26-2022 16:55-0400 Heart rate 101 /min Chino Shay [facility] 05-26-2022 16:55-0400 Respiratory rate 16 /min Chino Damone [facility] 05-26-2022 16:55-0400 SaO2% (BldA) [Mass fraction] 95 % Chino Shay [facility] 05-26-2022 16:55-0400 Systolic blood pressure 124 mm[Hg] Chino Shay [facility] 05-26-2022 16:36-0400 Body temperature 98.78 [degF] Chino Shay [facility] 05-26-2022 16:36-0400 Diastolic blood pressure 89 mm[Hg] Chino Shay [facility] 05-26-2022 16:36-0400 Heart rate 110 /min Chino Shay [facility] 05-26-2022 16:36-0400 Respiratory rate 16 /min Chino Shay [facility] 05-26-2022 16:36-0400 SaO2% (BldA) [Mass fraction] 96 % Chino Shay [facility] 05-26-2022 16:36-0400 Systolic blood pressure 141 mm[Hg] Chino Day [facility] 04-09-2022 11:45-0400 Body height 154.94 cm Suha Carmina Other [employer] Other 04-09-2022 11:45-0400 Body mass index (BMI) [Ratio] 22.1 kg/m2 Suha Carmina Other [employer] Other 04-09-2022 11:45-0400 Body temperature 98.5 [degF] Suha Carmina Other [employer] Other 04-09-2022 11:45-0400 Body weight 53.07 kg Suha Carmina Other [employer] Other 04-09-2022 11:45-0400 Diastolic blood pressure 80 mm[Hg] Suha Carmina Other [employer] Other 04-09-2022 11:45-0400 Respiratory rate 18 /min Suha Carmina Other [employer] Other 04-09-2022 11:45-0400 SaO2% (BldA) [Mass fraction] 98 % Suha Carmina Other [employer] Other 04-09-2022 11:45-0400 Systolic blood pressure 130 mm[Hg] Suha Carmina Other [employer] Other Encounters Encounter Date Encounter Type Care Provider Facility Start: 10-13-2023 End: 10-13-2023 ambulatory Suha Carmina Other [employer] Other Start: 10-13-2023 Telephone encounter Suha Carmina [facility] Start: 10-10-2023 End: 10-11-2023 ambulatory PA-C KERVIN ZAVALA Facility:[facility] Start: 10-10-2023 End: 10-10-2023 Patient encounter procedure KERVIN ZAVALA [facility] Start: 10-04-2023 End: 10-04-2023 ambulatory Suha Carmina Other [employer] Other Start: 10-04-2023 Telephone encounter Suha Carmina [facility] Start: 09-20-2023 End: 09-20-2023 ambulatory Suha Carmina Other [employer] Other Start: 09-20-2023 Telephone encounter Suha Carmina [facility] Start: 09-16-2023 End: 09-17-2023 ambulatory Alaa ALASUNDARAD Facility:[facility] Start: 09-16-2023 End: 09-17-2023 Observation Alaa ALAHMAD [facility] Start: 09-08-2023 End: 09-08-2023 ambulatory Suha Carmina Other [employer] Other Start: 09-08-2023 Telephone encounter Suha Carmina [facility] Start: 07-12-2023 End: 07-12-2023 ambulatory Suha Carmina Other [employer] Other Start: 07-12-2023 Telephone encounter Suha Carmina [facility] Start: 06-30-2023 End: 06-30-2023 ambulatory Suha Carmina Other [employer] Other Start: 06-30-2023 Telephone encounter Suha Carmina [facility] Start: 06-26-2023 End: 06-26-2023 Emergency department patient visit Miller Waggoner Facility:[facility] Start: 06-26-2023 End: 06-26-2023 Emergency department patient visit Miller Waggoner [facility] Start: 06-09-2023 End: 06-09-2023 ambulatory Suha Carmina Other [employer] Other Start: 06-09-2023 Telephone encounter Suha Carmina [facility] Start: 06-07-2023 End: 06-08-2023 ambulatory SUHA M CARMINA Facility:[facility] Start: 06-04-2023 End: 06-04-2023 ambulatory Suha Carmina Other [employer] Other Start: 06-04-2023 Telephone encounter Suha Carmina [facility] Start: 04-08-2023 End: 04-09-2023 ambulatory Adelfo D Chrissie Facility:[facility] Start: 02-24-2023 End: 02-25-2023 ambulatory SUHA M CARMINA Facility:[facility] Start: 02-18-2023 End: 02-19-2023 ambulatory SUHA M CARMINA Facility:[facility] Start: 02-18-2023 End: 02-18-2023 Patient encounter procedure SUHA M CARMINA [facility] Start: 11-23-2022 End: 11-23-2022 ambulatory Glory Gutierrezi Facility:[facility] Start: 11-23-2022 End: 11-23-2022 ambulatory DO Suha M. Carmina Work Phone: [facility] Work Phone: Start: 11-23-2022 End: 11-23-2022 Departed Referred DO Suha Carmina Work Phone: [facility] [place] Work Phone: Start: 08-04-2022 End: 08-04-2022 Patient encounter procedure SUHA M CARMINA [facility] Start: 07-30-2022 End: 07-30-2022 ambulatory Suha Carmina Other [employer] Other Start: 07-30-2022 Telephone encounter Suha Carmina [facility] Start: 07-09-2022 End: 07-09-2022 ambulatory Suha M. Carmina Facility:[facility] Start: 07-09-2022 End: 07-09-2022 ambulatory DO Suha M. Carmina Work Phone: [facility] Work Phone: Start: 07-09-2022 End: 07-09-2022 Discharged Recurring DO Suha Carmina Work Phone: [facility] [place] Start: 06-15-2022 End: 06-15-2022 ambulatory Suha Carmina Other [employer] Other Start: 06-15-2022 Office outpatient vi sit 25 minutes Suha Carmina [facility] Start: 06-08-2022 End: 06-08-2022 ambulatory Suha Carmina Other [employer] Other Start: 06-08-2022 Telephone encounter Suha Carmina [facility] Start: 06-08-2022 End: 06-08-2022 Emergency department patient visit Miller Waggoner [facility] Start: 05-29-2022 End: 05-29-2022 ambulatory Suha Carmina Other [employer] Other Start: 05-29-2022 Office outpatient vi sit 25 minutes Suha Carmina [facility] Start: 05-26-2022 End: 05-26-2022 Emergency department patient visit Chino Day [facility] Start: 04-09-2022 End: 04-09-2022 ambulatory Suha Carmina Other [employer] Other Start: 04-09-2022 Office outpatient vi sit 25 minutes Suha Carmina [facility] Start: 03-10-2022 End: 03-10-2022 Patient encounter procedure SUHA M CARMINA [facility] Procedures Date Procedure Procedure Detail Performing Clinician Start: 05-27-2015 left eye cataract extraction with intraocular lens placement. manual dilatation of the iris with a Malyugin ring SUHA CARMINA Start: 04-08-2015 right cataract extra ction with intraocular lens placement SUHA CARMINA ft (qualifier value) BISI ZAVALA Plan of Treatment Date Care Activity Detail Author Start: 11-23-2022 Superficial Wound Culture Superficial Wound Culture [facility] Bacteria identified in Unspecified specimen by Aerobe culture [facility] Immunizations Immunization Date Immunization Notes Care Provider [facility] 02-04-2018 pneumococcal polysaccharide vaccine, 23 valent Suha Carmina Other [facility] 11-26-2016 pneumococcal conjugate vaccine, 13 valent Suha Carmina Other [facility] 11-03-2014 tetanus toxoid, reduced diphtheria toxoid, and acellular pertussis vaccine, adsorbed SUHA CARMINA [facility] 11-10-2006 pneumococcal polysaccharide vaccine, 23 valent Suha Carmina Other [facility] NEGATED: Highlighted row has not occurred! 3 SARS-CoV-2 mRNA (tozinameran 5y-11y) vaccine KERVIN ZAVALA [facility] NEGATED: Highlighted row has not occurred! 8 influenza, injectable, quadrivalent, contains preservative Suha Carmina Other [employer] Other NEGATED: Highlighted row has not occurred! 7 influenza, injectable, quadrivalent, contains preservative Patient Objection Suha Carmina Other [employer] Other NEGATED: Highlighted row has not occurred! 7 influenza, injectable, quadrivalent, contains preservative Patient Objection Suha Carmina Other [employer] Other Payers Date Payer Category Payer Self-pay [id number] 2018 Unknown [id number] [id number]. [id number] 2002 Medicare [id number] 2.1 [id number] 1937 Unknown [id number] 2.16.8 [id number] 1937 Unknown [id number] 2.16.8 [id number] 1937 Unknown [id number] 2.16.8 [id number] 1937 Unknown [id number] 2.16.8 [id number] 1937 Unknown [id number] 2.16.8 [id number] 1937 Unknown [id number] 2.16.8 [id number] 1937 Unknown [id number] 2.16.8 [id number] 1937 Unknown [id number] 2.16.8 [id number] Unknown [facility] Health Claims [id number] Unknown [id number] 2.16.8 [id number] Unknown [id number] 2.16.8 [id number] Social History Date Type Detail Facility Tobacco Unknown if ever smoked [facility] Comment on above: QUIT 15 YRS AGO-SMOK ED 1PPD Sex Assigned At Female [facility] Start: 05-26-2022 End: 10-10-2023 Tobacco smoking status Ex-smoker (finding) [facility] Start: 1935 Sex Assigned At Female F [facility] Tobacco smoking status Never [facility] Functional Status Date Assessment Result Facility 10-10-2023 Functional Status N/A [facility] 09-16-2023 Functional Status No [facility] 09-16-2023 Functional Status [facility] 06-26-2023 Functional Status N/A [facility] 06-08-2022 Functional Status N/A [facility] 05-26-2022 Functional Status N/A [facility] Clinical Notes 03-10-2022 to 10-10-2023 Note Date & Type Note Facility 10-10-2023 Hospital Discharge instructions Patient Education 10/10/2023 11:07:03 Acute Bronchitis, Adult, Hmpj-lu-Ducd Acute Bronchitis, Adult Acute bronchitis is when air tubes in the lungs (bronchi) suddenly get swollen. The condition can make it hard for you to breathe. In adults, acute bronchitis usually goes away within 2 weeks. A cough caused by bronchitis may last up to 3 weeks. Smoking, allergies, and asthma can make the condition worse. What are the causes? Germs that cause cold and flu (viruses). The most common cause of this condition is the virus that causes the common cold. Bacteria. Substances that bother (irritate) the lungs, including: ?Smoke from cigarettes and other types of tobacco. ?Dust and pollen. ?Fumes from chemicals, gases, or burned fuel. ?Indoor or outdoor air pollution. What increases the risk? A weak body's defense system. This is also called the immune system. Any condition that affects your lungs and breathing, such as asthma. What are the signs or symptoms? A cough. Coughing up clear, yellow, or green mucus. Making high-pitched whistling sounds when you breathe, most often when you breathe out (wheezing). Runny or stuffy nose. Having too much mucus in your lungs (chest congestion). Shortness of breath. Body aches. A sore throat. How is this treated? Acute bronchitis may go away over time without treatment. Your doctor may tell you to: Drink more fluids. This will help thin your mucus so it is easier to cough up. Use a device that gets medicine into your lungs (inhaler). Use a vaporizer or a humidifier. These are machines that add water to the air. This helps with coughing and poor breathing. Take a medicine that thins mucus and helps clear it from your lungs. Take a medicine that prevents or stops coughing. It is not common to take an antibiotic medicine for this condition. Follow these instructions at home: Take rzvl-sdk-srsdkyk and prescription medicines only as told by your doctor. Use an inhaler, vaporizer, or humidifier as told by your doctor. Take two teaspoons (10 mL) of honey at bedtime. This helps lessen your coughing at night. Drink enough fluid to keep your pee (urine) pale yellow. Do not smoke or use any products that contain nicotine or tobacco. If you need help quitting, ask your doctor. Get a lot of rest. Return to your normal activities when your doctor says that it is safe. Keep all follow-up visits. How is this prevented? Wash your hands often with soap and water for at least 20 seconds. If you cannot use soap and water, use hand photography coordinator. Avoid contact with people who have cold symptoms. Try not to touch your mouth, nose, or eyes with your hands. Avoid breathing in smoke or chemical fumes. Make sure to get the flu shot every year. Contact a doctor if: Your symptoms do not get better in 2 weeks. You have trouble coughing up the mucus. Your cough keeps you awake at night. You have a fever. Get help right away if: You cough up blood. You have chest pain. You have very bad shortness of breath. You faint or keep feeling like you are going to faint. You have a very bad headache. Your fever or chills get worse. These symptoms may be an emergency. Get help right away. Call your local emergency services (911 in the [place] Do not wait to see if the symptoms will go away. Do not drive yourself to the hospital. Summary Acute bronchitis is when air tubes in the lungs (bronchi) suddenly get swollen. In adults, acute bronchitis usually goes away within 2 weeks. Drink more fluids. This will help thin your mucus so it is easier to cough up. Take aaak-has-zwwhgru and prescription medicines only as told by your doctor. Contact a doctor if your symptoms do not improve after 2 weeks of treatment. This information is not intended to replace advice given to you by your health care provider. Make sure you discuss any questions you have with your health care provider. Document Revised: 02/18/2022 Document Reviewed: 02/18/2022 [employer] Patient Education 2022 [employer]. 10/10/2023 11:06:59 Sinus Infection, Adult, Hscv-cv-Ygby Sinus Infection, Adult A sinus infection is soreness and swelling (inflammation) of your sinuses. Sinuses are hollow spaces in the bones around your face. They are located: Around your eyes. In the middle of your forehead. Behind your nose. In your cheekbones. Your sinuses and nasal passages are lined with a fluid called mucus. Mucus drains out of your sinuses. Swelling can trap mucus in your sinuses. This lets germs (bacteria, virus, or fungus) grow, which leads to infection. Most of the time, this condition is caused by a virus. What are the causes? Allergies. Asthma. Germs. Things that block your nose or sinuses. Growths in the nose (nasal polyps). Chemicals or irritants in the air. A fungus. This is rare. What increases the risk? Having a weak body defense system (immune system). Doing a lot of swimming or diving. Using nasal sprays too much. Smoking. What are the signs or symptoms? The main symptoms of this condition are pain and a feeling of pressure around the sinuses. Other symptoms include: Stuffy nose (congestion). This may make it hard to breathe through your nose. Runny nose (drainage). Soreness, swelling, and warmth in the sinuses. A cough that may get worse at night. Being unable to smell and taste. Mucus that collects in the throat or the back of the nose (postnasal drip). This may cause a sore throat or bad breath. Being very tired (fatigued). A fever. How is this diagnosed? Your symptoms. Your medical history. A physical exam. Tests to find out if your condition is short-term (acute) or long-term (chronic). Your doctor may: ?Check your nose for growths (polyps). ?Check your sinuses using a tool that has a light on one end (endoscope). ?Check for allergies or germs. ?Do imaging tests, such as an MRI or CT scan. How is this treated? Treatment for this condition depends on the cause and whether it is short-term or long-term. If caused by a virus, your symptoms should go away on their own within 10 days. You may be given medicines to relieve symptoms. They include: ?Medicines that shrink swollen tissue in the nose. ?A spray that treats swelling of the nostrils. ?Rinses that help get rid of thick mucus in your nose (nasal saline washes). ?Medicines that treat allergies (antihistamines). ?Qnlj-jpc-vkgglsc pain relievers. If caused by bacteria, your doctor may wait to see if you will get better without treatment. You may be given antibiotic medicine if you have: ?A very bad infection. ?A weak body defense system. If caused by growths in the nose, surgery may be needed. Follow these instructions at home: Medicines Take, use, or apply zewg-ivz-sfnvejp and prescription medicines only as told by your doctor. These may include nasal sprays. If you were prescribed an antibiotic medicine, take it as told by your doctor. Do not stop taking it even if you start to feel better. Hydrate and humidify Drink enough water to keep your pee (urine) pale yellow. Use a cool mist humidifier to keep the humidity level in your home above 50%. Breathe in steam for 10 15 minutes, 3 4 times a day, or as told by your doctor. You can do this in the bathroom while a hot shower is running. Try not to spend time in cool or dry air. Rest Rest as much as you can. Sleep with your head raised (elevated). Make sure you get enough sleep each night. General instructions Put a warm, moist washcloth on your face 3 4 times a day, or as often as told by your doctor. Use nasal saline washes as often as told by your doctor. Wash your hands often with soap and water. If you cannot use soap and water, use hand photography coordinator. Do not smoke. Avoid being around people who are smoking (secondhand smoke). Keep all follow-up visits. Contact a doctor if: You have a fever. Your symptoms get worse. Your symptoms do not get better within 10 days. Get help right away if: You have a very bad headache. You cannot stop vomiting. You have very bad pain or swelling around your face or eyes. You have trouble seeing. You feel confused. Your neck is stiff. You have trouble breathing. These symptoms may be an emergency. Get help right away. Call 911. Do not wait to see if the symptoms will go away. Do not drive yourself to the hospital. Summary A sinus infection is swelling of your sinuses. Sinuses are hollow spaces in the bones around your face. This condition is caused by tissues in your nose that become inflamed or swollen. This traps germs. These can lead to infection. If you were prescribed an antibiotic medicine, take it as told by your doctor. Do not stop taking it even if you start to feel better. Keep all follow-up visits. This information is not intended to replace advice given to you by your health care provider. Make sure you discuss any questions you have with your health care provider. Document Revised: 09/22/2022 Document Reviewed: 09/22/2022 [employer] Patient Education 2022 [employer]. Follow Up Care 10/10/2023 09:02:54 With:SUHA GREWAL DO, FAM Address: [facility] [address] [place] [address]- When: Unknown [facility] 09-19-2023 Note Admission and Discha rge Information Admitting Physician - Diane SILVA MD Admitting Diagnoses: Discharge Diagnoses 1. Dizziness of unknown cause, 09/16/2023 2. Hyperthyroidism, 09/16/2023 3. TIA - Transient ischaemic attack, 09/16/2023 4. Hyperlipidemia, 09/16/2023 Altered gait, 09/16/2023 Medical screening exam, 09/16/2023 Neck pain, 09/16/2023 Procedure History left eye cataract extraction with intraocular lens placement. manual dilatation of the iris with a Malyugin ring (05/27/2015), right cataract extraction with intraocular lens placement (04/08/2015). Hospital Course 88-year-old white female past medical history of hyperlipidemia, TIA, and hyperthyroidism who presented to emergency room with dizziness. She was at [employer] walking when suddenly she heard a pop sound to her neck and she started feeling lightheaded. Associated with generalized weakness. She has no headache or blurred vision or double vision. No slurred speech or facial droop. She denies having upper extremity or lower extremity weakness. She denies any nausea vomiting. No chest pain or shortness of breath. No palpitation. She denies any fever or chills. No dialysis or sweats. No orthopnea or PND. She denies any cough. No dysuria, hematuria, or frequency. She was admitted to the hospital for observation with cardiac telemetry. CT brain revealed no acute bleed of infarct. CTA head and neck were unremarkable. he was given aspirin daily. MRI was unremarkable. PT OT was obtained. Patient discharged home in stable condition. Services Consulted Consult to Computer [employer] - Ordered -- 09/16/23 21:44:33 EST Physical Exam Vitals & Measurements T: 36.5 ?C(Axillary) TMIN: 36.5 ?C(Axillary) TMAX: 36.8 ?C(Axillary) HR: 85(Monitored) RR: 20 BP: 129/66 SpO2: 98% HT: 154.92 cm WT: 54.9 kg General: alert, no acute distress Skin: warm, dry Head: no trauma, normocephalic Neck: Trachea midline, no adenopathy, no tenderness Eye: normal conjunctiva, sclera clear ENMT: TM's clear, oral mucosa moist, no pharyngeal erythema or exudate Cardiovascular: regular rate and rhythm, normal peripheral perfusion Respiratory: Lungs CTA, respirations non labored Chest wall: no deformity. Gastrointestinal: soft, non distended, no tenderness, no guarding. Back: No tenderness, Normal ROM, Normal alignment. Extremities: no deformity, no trauma Neurological: oriented x 4, LOC appropriate for age, CN II-XII intact, motor strength equal & normal bilaterally, sensation equal & normal bilaterally, speech normal Psychiatric: cooperative, affect appropriate for age, normal judgement, normal psychiatric thoughts. Laboratory Results Automated Diff (09/16/2023) Neutro Auto - 67.7 % Lymph Auto - 24.5 % Oliver Auto - 6.3 % Eos Auto - 0.4 % Basophil Auto - 1.1 % Neutro Absolute - 3.9 E9/L Lymph Absolute - 1.4 E9/L Oliver Absolute - 0.4 E9/L Eos Absolute - 0.0 E9/L Basophil Absolute - 0.1 E9/L BMP (09/16/2023) Glucose Lvl - 94 mg/dL BUN - 20 mg/dL Creatinine - 0.9 mg/dL BUN/Creat Ratio - 22 Sodium Lvl - 138 mmol/L Potassium Lvl - 4.0 mmol/L Chloride - 103 mmol/L CO2 - 25 mmol/L AGAP - 14 mEq/L Calcium Lvl - 9.5 mg/dL CBC w/ Auto Diff (09/16/2023) WBC - 5.7 E9/L RBC - 5.0 E12/L Hgb - 14.4 gm/dL Hct - 42.3 % MCV - 85.1 fL MCH - 29.0 pg MCHC - 34.0 gm/dL RDW - 13.3 % Platelet - 158.0 E9/L MPV - 8.2 fL eGFR (09/16/2023) eGFR - 62 mL/min/1.73 m2 Lipid Panel (09/17/2023) Chol - 185 mg/dL Trig - 88 mg/dL HDL - 37 mg/dL LDL Direct - 125 mg/dL VLDL - 18 mg/dL PT & PTT (09/16/2023) PT - 11.4 second(s) INR - 1.0 PTT - 30.7 second(s) Urinalysis with Culture Reflex (09/16/2023) UA Spec Desc - Clean Catch UA Color - Straw3 UA Clarity - Clear2 UA Spec Grav - <=1.005 UA pH - 7.0 UA Protein - NEGATIVE1 UA Glucose - NEGATIVE1 UA Ketones - Trace2 UA Bili - NEGATIVE1 UA Blood - NEGATIVE1 UA Nitrite - NEGATIVE1 UA Urobilinogen - 0.2 UA Leuk Est - NEGATIVE1 UA RBC - 0-3 UA Squam Epithelial - 0-2 UA WBC - 0-5 UA Bacteria - Trace2 UA Amorph Ananya - Present Tests Performed Automated Diff BMP CBC w/ Auto Diff eGFR Lipid Panel PT & PTT Urinalysis with Culture Reflex Cervical Spine CT w/o Contrast CTA Head CTA Neck MRI Brain w/o Contrast -- Results Pending -- Please visit your patient portal for your results or contact your primary care physician. Discharge Plan Patient Discharge Condition good Discharge Disposition Discharge To, Anticipated II - Home with home health Discharged to - Home independently Home with home health Discharge Diet Discharge Diet(s): Regular (09/17/23 09:37:00) Discharge Medication List Prescriptions No active prescription medications Home aspirin 81 mg oral tablet, 81 mg= 1 tab(s), Oral, Daily, Still taking, not as prescribed: currently on hold until surgery on 09/20/23 cephalexin 500 mg Cap, 500 mg= 1 cap(s), Oral, q12hr cyanocobalamin 100 (more content not included)... [facility] Comment on above: Result Comment: Elec tronically Signed By: SHIRA BAIRD, Diaen\.br\Date and Time Signed: 09/19/23 08:34 EST 09-17-2023 Note PT Evaluation comple susi with an AMPAC score of 20/24. Pt was able to perform bed mobility with Mod I and transfers with SBA. Pt was able to ambulate, but would recommend pt to use a FWW for more stability. Will follow daily, but would recommend pt to use her FWW and PT HH services to follow [facility] 09-17-2023 Hospital Discharge instructions Patient Education 09/17/2023 09:42:02 Dizziness Dizziness Dizziness is a common problem. It is a feeling of unsteadiness or light-headedness. You may feel like you are about to faint. Dizziness can lead to injury if you stumble or fall. Anyone can become dizzy, but dizziness is more common in older adults. This condition can be caused by a number of things, including medicines, dehydration, or illness. Follow these instructions at home: Eating and drinking Drink enough fluid to keep your urine pale yellow. This helps to keep you from becoming dehydrated. Try to drink more clear fluids, such as water. Do not drink alcohol. Limit your caffeine intake if told to do so by your health care provider. Check ingredients and nutrition facts to see if a food or beverage contains caffeine. Limit your salt (sodium) intake if told to do so by your health care provider. Check ingredients and nutrition facts to see if a food or beverage contains sodium. Activity Avoid making quick movements. ?Rise slowly from chairs and steady yourself until you feel okay. ?In the morning, first sit up on the side of the bed. When you feel okay, stand slowly while you hold onto something until you know that your balance is good. If you need to park superintendent one place for a long time, move your legs often. Tighten and relax the muscles in your legs while you are standing. Do not drive or use machinery if you feel dizzy. Avoid bending down if you feel dizzy. Place items in your home so that they are easy for you to reach without leaning over. Lifestyle Do not use any products that contain nicotine or tobacco. These products include cigarettes, chewing tobacco, and vaping devices, such as e-cigarettes. If you need help quitting, ask your health care provider. Try to reduce your stress level by using methods such as yoga or meditation. Talk with your health care provider if you need help to manage your stress. General instructions Watch your dizziness for any changes. Take elsu-weh-jupajcr and prescription medicines only as told by your health care provider. Talk with your health care provider if you think that your dizziness is caused by a medicine that you are taking. Tell a friend or a family member that you are feeling dizzy. If he or she notices any changes in your behavior, have this person call your health care provider. Keep all follow-up visits. This is important. Contact a health care provider if: Your dizziness does not go away or you have new symptoms. Your dizziness or light-headedness gets worse. You feel nauseous. You have reduced hearing. You have a fever. You have neck pain or a stiff neck. Your dizziness leads to an injury or a fall. Get help right away if: You vomit or have diarrhea and are unable to eat or drink anything. You have problems talking, walking, swallowing, or using your arms, hands, or legs. You feel generally weak. You have any bleeding. You are not thinking clearly or you have trouble forming sentences. It may take a friend or family member to notice this. You have chest pain, abdominal pain, shortness of breath, or sweating. Your vision changes or you develop a severe headache. These symptoms may represent a serious problem that is an emergency. Do not wait to see if the symptoms will go away. Get medical help right away. Call your local emergency services (911 in the [place] Do not drive yourself to the hospital. Summary Dizziness is a feeling of unsteadiness or light-headedness. This condition can be caused by a number of things, including medicines, dehydration, or illness. Anyone can become dizzy, but dizziness is more common in older adults. Drink enough fluid to keep your urine pale yellow. Do not drink alcohol. Avoid making quick movements if you feel dizzy. Monitor your dizziness for any changes. This information is not intended to replace advice given to you by your health care provider. Make sure you discuss any questions you have with your health care provider. Document Revised: 09/22/2021 Document Reviewed: 09/22/2021 Zero Locus Patient Education 2022 airpim. Follow Up Care 09/16/2023 11:36:37 With:SUHA GREWAL Address: [facility] [address] [address]- Business (1) When:09/28/2023 13:00:00 [facility] 09-17-2023 Note CRM entered the room to discuss dc planning. PCP, DME and insurance discussed. Patient is alert and involved in plan of care. Contact information provided and whiteboard updated. Plan to dc today. PT rec HH, pt is agreeable, referral to [facility]. REY form discussed, copy provided. Pt's son will transport. [facility] Comment on above: Result Comment: Elec tronically Signed By: Karley Sarabia\Date and Time Signed: 09/17/23 09:37 EST 09-16-2023 Note Chief Complaint Pt. came w/ the squad d/t neck pain and difficulty walking/being unsteady on her feet, right after they sit her in a shampoo station in the salon she heard a crack in her neck. Said she'll be having a sx of her ganglion cyst on Wednesday, on Cephalexin 3days History of Present Illness 88-year-old white female past medical history of hyperlipidemia, TIA, and hyperthyroidism who presented to emergency room with dizziness. She was at [employer] walking when suddenly she heard a pop sound to her neck and she started feeling lightheaded. Associated with generalized weakness. She has no headache or blurred vision or double vision. No slurred speech or facial droop. She denies having upper extremity or lower extremity weakness. She denies any nausea vomiting. No chest pain or shortness of breath. No palpitation. She denies any fever or chills. No dialysis or sweats. No orthopnea or PND. She denies any cough. No dysuria, hematuria, or frequency. Review of Systems Constitutional: no fever, no chills, no sweats, no weakness Skin: no Jaundice, no rash, no lesions, nopetechiae ENMT: no ear pain, no sore throat, no congestion, no hoarseness Respiratory: no shortness of breath, no cough, no orthopnea, no wheezing Cardiovascular: no chest pain, no palpitations, no edema Gastrointestinal: no nausea, no vomiting, no diarrhea, no GI bleeding Genitourinary: no dysuria, no hematuria, no discharge, no pain Musculoskeletal: no back pain, no trauma Neurologic: no headache, no dizziness, no numbness, no weakness Psychiatric: no sleeping problems, no irritability, no mood swings/depression. Heme/Lymph: no bleeding tendency, no bruising tendency, no petechiae, no swollen nodes Allergy/Immunologic: no seasonal allergies, no food allergies, no recurrent infections, no impaired immunity Additional ROS info: Except as noted in the above Review of Systems and in the History of Present Illness all other systems have been reviewed and are negative or noncontributory. Scoring Fox Fall Risk Score: 15 (09/16/23) Physical Exam Vitals & Measurements T: 36.5 ?C(Oral) HR: 88(Monitored) RR: 16 BP: 136/74 SpO2: 98% HT: 154 cm WT: 54 kg General: alert, no acute distress Skin: warm, dry Head: no trauma, normocephalic Neck: Trachea midline, no adenopathy, no tenderness Eye: normal conjunctiva, sclera clear ENMT: TM's clear, oral mucosa moist, no pharyngeal erythema or exudate Cardiovascular: regular rate and rhythm, normal peripheral perfusion Respiratory: Lungs CTA, respirations non labored Chest wall: no deformity. Gastrointestinal: soft, non distended, no tenderness, no guarding. Back: No tenderness, Normal ROM, Normal alignment. Extremities: no deformity, no trauma Neurological: oriented x 4, LOC appropriate for age, CN II-XII intact, motor strength equal & normal bilaterally, sensation equal & normal bilaterally, speech normal Psychiatric: cooperative, affect appropriate for age, normal judgement, normal psychiatric thoughts. Lab Results WBC: 5.7 E9/L (09/16/23 12:13:00) RBC: 5 E12/L (09/16/23 12:13:00) HGB: 14.4 gm/dL (09/16/23 12:13:00) Hct: 42.3 % (09/16/23 12:13:00) MCV: 85.1 fL (09/16/23 12:13:00) MCH: 29 pg (09/16/23 12:13:00) MCHC: 34 gm/dL (09/16/23 12:13:00) RDW: 13.3 % (09/16/23 12:13:00) Platelet: 158 E9/L (09/16/23 12:13:00) MPV: 8.2 fL (09/16/23 12:13:00) Neutro Auto: 67.7 % (09/16/23 12:13:00) Lymph Auto: 24.5 % (09/16/23 12:13:00) Oliver Auto: 6.3 % (09/16/23 12:13:00) Eos Auto: 0.4 % (09/16/23 12:13:00) Basophil Auto: 1.1 % (09/16/23 12:13:00) Neutro Absolute: 3.9 E9/L (09/16/23 12:13:00) Lymph Absolute: 1.4 E9/L (09/16/23 12:13:00) Oliver Absolute: 0.4 E9/L (09/16/23 12:13:00) Eos Absolute: 0 E9/L (09/16/23 12:13:00) Basophil Absolute: 0.1 E9/L (09/16/23 12:13:00) PT: 11.4 second(s) (09/16/23 12:13:00) INR: 1 (09/16/23:13:00) PTT: 30.7 second(s) (09/16/23 12:13:00) Glucose Lvl: 94 mg/dL (09/16/23 12:13:00) BUN: 20 mg/dL (09/16/23 12:13:00) Creatinine: 0.9 mg/dL (09/16/23 12:13:00) eGFR: 62 mL/min/1.73 m2 (09/16/23 12:13:00) BUN/Creat Ratio: 22 High (09/16/23 12:13:00) Sodium Lvl: 138 mmol/L (09/16/23 12:13:00) Potassium Lvl: 4 mmol/L (09/16/23 12:13:00) Chloride: 103 mmol/L (09/16/23 12:13:00) CO2: 25 mmol/L (09/16/23 12:13:00) AGAP: 14 mEq/L (09/16/23 12:13:00) Calcium Lvl: 9.5 mg/dL (09/16/23 12:13:00) UA Spec Desc: Clean Catch (09/16/23 15:39:00) UA Color: Straw3 Abnormal (09/16/23 15:39:00) UA Clarity: Clear2 (09/16/23 15:39:00) UA Spec Grav: <=1.005 (09/16/23 15:39:00) UA pH: 7.0 (09/16/23 15:39:00) UA Protein: NEGATIVE1 (09/16/23 15:39:00) UA Glucose: NEGATIVE1 (09/16/23 15:39:00) UA Ketones: Trace2 Abnormal (09/16/23 15:39:00) UA Bili: NEGATIVE1 (09/16/23 15:39:00) UA Blood: NEGATIVE1 (09/16/23 15:39:00) UA Nitrite: NEGATIVE1 (09/16/23 15:39:00) UA Urobilinogen: 0.2 (09/16/23 15:39:00) UA Leuk Est: NEGATIVE1 (09/16/23 15:39:00) UA RBC: 0-3 (09/01 (more content not included)... [facility] Comment on above: Result Comment: Elec tronically Signed By: Diane SILVA MD\.br\Date and Time Signed: 09/16/23 16:27 EST 09-16-2023 Evaluation + Plan note Extrac susi from: Title:ED Note Author:Miller Waggoner DO Date:11/16/22 1. Dizziness of unknown caus e (R42: Dizziness and giddiness) 2. Hyperthyroidism (E05.90: Thyrotoxicosis, unspecified without thyrotoxic crisis or storm) 3. TIA - Transient ischaemic attack (G45.9: Transient cerebral ischemic attack, unspecified) 4. Hyperlipidemia (E78.5: Hyperlipidemia, unspecified) Orders: meclizine, 25 mg = 2 tab(s), Tab, Oral, Once, Stop date 09/16/23 14:23:00 EST, STAT, Start date 09/16/23 14:23:00 EST, 09/16/23 14:23:00 EST Automated Diff Basic Metabolic Panel CBC w/ Auto Diff CT Spine Cervical w/o Contrast CTA Head CTA Neck eGFR Extra SST Tube PT & PTT UA With Cult Reflex Extracted from: Title:Admission H & P Author:Diane SILVA MD te:09/16/23 1. Dizziness of unknown caus e (R42: Dizziness and giddiness) Less likely TIA 25-year-old observed reviewed Cardiac telemetry Neuro check every 4 hours Normal saline 75 cc/h CT brain Prominence of the sulci and ventricles compatible with mild generalized parenchymal volume loss. Leon-white matter differentiation is preserved. Areas of bilateral supratentorial white matter hypoattenuation are nonspecific but most likely due to chronic small vessel ischemic changes in a patient of this age. No acute hemorrhage or abnormal extra-axial fluid collection. Basal cisterns are patent. No mass effect or midline shift. The visualized paranasal sinuses and mastoid air cells are clear. Calvarium is intact. CTA brain The internal carotid arteries through the skull base are patent. The bilateral middle cerebral arteries through the trifurcation and opercular branches are patent. The vertebrobasilar system including the superior cerebellar and posterior cerebral arteries are patent. Another posterior to indicating artery is identified. The bilateral anterior cerebral arteries and anterior communicating artery are patent. No aneurysm or high-grade stenosis. CTA neck: Unremarkable CT cervical spine NO ACUTE FRACTURE OR MALALIGNMENT. MRI Brain PT/OT ASA daily social service consult 2. Hyperthyroidism (E05.90: Thyrotoxicosis, unspecified without thyrotoxic crisis or storm) Resume Synthroid 3. TIA - Transient ischaemic attack (G45.9: Transient cerebral ischemic attack, unspecified) Resume aspirin DVT prophylaxis Lovenox daily Orders: acetaminophen, 650 mg = 2 tab(s), Tab, Oral, q6hr PRN Pain, Routine, Start date 09/16/23 16:09:00 EST, 09/16/23 16:09:00 EST Al hydroxide/Mg hydroxide/simethicone, 30 mL, Susp-Oral, Oral, q6hr PRN Indigestion, Routine, Start date 09/16/23 16:09:00 EST enoxaparin, 40 mg = 0.4 mL, Injection, SubCutaneous, Daily for 30 day(s), Stop date 10/17/23 8:59:00 EST, Routine, Start date 09/17/23 9:00:00 EST, 09/16/23 16:09:00 EST magnesium hydroxide, 30 mL, Susp-Oral, Oral, q6hr PRN Constipation, Routine, Start date 09/16/23 16:09:00 EST ondansetron, 4 mg = 2 mL, Injection, IV Push, q6hr PRN Nausea, Routine, Start date 09/16/23 16:09:00 EST, 09/16/23 16:09:00 EST senna, 17.2 mg = 2 tab(s), Tab, Oral, BID PRN Other (see comment), Routine, Start date 09/16/23 16:09:00 EST, 09/16/23 16:09:00 EST Sodium Chloride 0.9% intravenous solution 1,000 mL, 1,000 mL, IV, 75 mL/hr, Routine, Start date 09/16/23 16:09:00 EST, 13.3 hour(s), Total volume (mL): 1,000, 54 kg, 1.52, m2 Cardiac Monitoring Elevate Head of Bed Intake and Output MRI Brain w/o Contrast Notify Provider Vital Signs Notify Provider Vital Signs Occupational Therapy Evaluate Patient, Develop a Plan of Care and Implement Plan Physical Therapy Evaluate Patient, Develop a Plan of Care and Implement Plan Place in Status Pulse Oximetry Resuscitation Status - Full Saline Lock Convert From IV Up ad Selam Vital Signs Weight [facility]08-26-2023 Hospital Discharge instructions Patient Education 06/26/2023 16:45:38 Wound Care, Adult Wound Care, Adult Taking care of your wound properly can help to prevent pain, infection, and scarring. It can also help your wound heal more quickly. Follow instructions from your health care provider about how to care for your wound. Supplies needed: Soap and water. Wound cleanser, saline, or germ-free (sterile) water. Gauze. If needed, a clean bandage (dressing) or other type of wound dressing material to cover or place inthe wound. Follow your health care provider's instructions about what dressing supplies to use. Cream or topical ointment to apply to the wound, if told by your health care provider. How to care for your wound Cleaning the wound Ask your health care provider how to clean the wound. This may include: Using mild soap and water, a wound cleanser, saline, or sterile water. Using a clean gauze to pat the wound dry after cleaning it. Do not rub or scrub the wound. Dressing care Wash your hands with soap and water for at least 20 seconds before and after you change the dressing. If soap and water are not available, use hand photography coordinator. Change your dressing as told by your health care provider. This may include: ?Cleaning or rinsing out (irrigating) the wound. ?Application of cream or topical ointment, if told by your health care provider. ?Placing a dressing over the wound or in the wound (packing). ?Covering the wound with an outer dressing. Leave stitches (sutures), stefani, skin glue, or adhesive strips in place. These skin closures may need to stay in place for 2 weeks or longer. If adhesive strip edges start to loosen and curl up, you may trim the loose edges. Do not remove adhesive strips completely unless your health care provider tells you to do that. Ask your health care provider when you can leave the wound uncovered. Checking for infection Check your wound area every day for signs of infection. Check for: More redness, swelling, or pain. Fluid or blood. Warmth. Pus or a bad smell. Follow these instructions at home Medicines If you were prescribed an antibiotic medicine, cream, or ointment, take or apply it as told by yourhealth care provider. Do not stop using the antibiotic even if your condition improves. If you were prescribed pain medicine, take it 30 minutes before you do any wound care or as told byyour health care provider. Take fagn-tnd-hhincdd and prescription medicines only as told by your health care provider. Eating and drinking Eat a diet that includes protein, vitamin A, vitamin C, and other nutrient-rich foods to help the wound heal. ?Foods rich in protein include meat, fish, eggs, dairy, beans, and nuts. ?Foods rich in vitamin A include carrots and dark green, leafy vegetables. ?Foods rich in vitamin C include citrus fruits, tomatoes, broccoli, and peppers. Drink enough fluid to keep your urine pale yellow. General instructions Do not take baths, swim, or use a hot tub until your health care provider approves. Ask your healthcare provider if you may take showers. You may only be allowed to take sponge baths. Do not scratch or pick at the wound. Keep it covered as told by your health care provider. Return to your normal activities as told by your health care provider. Ask your health care provider what activities are safe for you. Protect your wound from the sun when you are outside for the first 6 months, or for as long as toldby your health care provider. Cover up the scar area or apply sunscreen that has an SPF of at least30. Do not use any products that contain nicotine or tobacco. These products include cigarettes, chewing tobacco, and vaping devices, such as e-cigarettes. If you need help quitting, ask your health careprovider. Keep all follow-up visits. This is important. Contact a health care provider if: You received a tetanus shot and you have swelling, severe pain, redness, or bleeding at the injection site. Your pain is not controlled with medicine. You have any of these signs of infection: ?More redness, swelling, or pain around the wound. ?Fluid or blood coming from the wound. ?Warmth coming from the wound. ?A fever or chills. You are nauseous or you vomit. You are dizzy. You have a new rash or hardness around the wound. Get help right away if: You have a red streak of skin near the area around your wound. Pus or a bad smell coming from the wound. Your wound has been closed with stefani, sutures, skin glue, or adhesive strips and it begins to open up and separate. Your wound is bleeding, and the bleeding does not stop with gentle pressure. These symptoms may represent a serious problem that is an emergency. Do not wait to see if the symptoms will go away. Get medical help right away. Call your local emergency services (911 in the [place] Do not drive yourself to the hospital. Summary Always wash your hands with soap and water for at least 20 seconds before and after changing your dressing. Change your dressing as told by your health care provider. To help with healing, eat foods that are rich in protein, vitamin A, vitamin C, and other nutrients. Check your wound every day for signs of infection. Contact your health care provider if you think that your wound is infected. This information is not intended to replace advice given to you by your health care provider. Make sure you discuss any questions you have with your health care provider. Document Revised: 02/24/2022 Document Reviewed: 02/24/2022 Zero Locus Patient Education 2022 airpim. Follow Up Care 06/26/2023 15:59:58 With:Adelfo Dickens Address: [facility] [address] [place] [address]- 0 Business (1) When:06/29/2023 16:24:13 With:SUHA GREWAL Address: [address] [facility] [address] [place] [address]- Business (1) When:06/29/2023 16:24:05 Comments:Follow-up with your primary care provider in 3 to 5 days. If symptoms worsen, do not improve, or new symptoms arise please report back to emergency department for further evaluation. [facility]08-26-2023 Evaluation + Plan noteExtracted from: Title:ED Note Author:Otto Orta PA-C te:06/26/23 Wound of left foot (S91.302A : Unspecified open wound, left foot, initial encounter) Orders: cephalexin, 500 mg = 1 cap(s), Oral, q12hr, # 20 cap(s), Refills(s) 0, Pharmacy: [facility], 155, cm, 06/26/23 16:10:00 EDT, Height/Length Dosing, 53.8, kg, 06/26/23 16:10:00 EDT, Weight Dosing [facility]08-09-2023 Evaluation note* Encounter Date Diagnosis Assessment Notes Treatment Notes Treatment Clinical Notes Jun, Hypothyroidism, unspecified (ICD-10 - E03.9) [employer] [facility] Other 08-04-2023 Evaluation note* Encounter Date Diagnosis Assessment Notes Treatment Notes Treatment Clinical Notes Jun, Fatigue, unspecified type (ICD-10 - R53.83) Jun, Hypothyroidism, unspecified (ICD-10 - E03.9) Jun, Pure hypercholesterolemia , unspecified (ICD-10 - E78.00) Jun, Vitamin D deficiency (ICD-10 - E55.9) [employer] [facility] Other 10-04-2022 Evaluation + Plan note Diagnostic Tests Pending * T3 Free 08/04/22 [facility]09-29-2022 Evaluation note* Encounter Date Diagnosis Assessment Notes Treatment Notes Treatment Clinical Notes Jul, Hypothyroidism, unspecified (ICD-10 - E03.9) [employer] [facility] Other 08-15-2022 Evaluation note* Encounter Date Diagnosis Assessment Notes Treatment Notes Treatment Clinical Notes Jun, Concussion without loss of consciousness, initial encounter (ICD-10 - S06.0X0A) Lengthy 30+ minute discussion with patient today that certainly her symptoms may persist. We discussed concussion and side effects of concussions at great length. We will simply continue to monitor. Certainly patient to call if there is any worsening. Jun, Neck sprain, initial encounter (ICD-10 - S13.9XXA) It certainly would be reasonable that she has had a sprain/strain since the fall and striking her head on the concrete. We will send her to PT, at her suggestion/request, as I think this is a quite valid treatment option. We will simply follow along and she will call with updates. [employer] Other 08-08-2022 Hospital Discharge instructions Patient Education 06/08/2022 14:56:11 Post-Concussion Syndrome Post-Concussion Syndrome A concussion is a brain injury from a direct hit (blow) to your head or body. This blow causes yourbrain to shake quickly back and forth inside your skull. This can damage brain cells and cause chemical changes in your brain. Concussions are usually not life-threatening but can cause several serious symptoms. Post-concussion syndrome is when symptoms that occur after a concussion last longer than normal. These symptoms can last from weeks to months. What are the causes? The cause of this condition is not known. It can happen whether your head injury was mild or severe. What increases the risk? You are more likely to develop this condition if: You are female. You are a child, teen, or young adult. You had a past head injury. You have a history of headaches. You have depression or anxiety. What are the signs or symptoms? Physical symptoms Headaches. Tiredness. Dizziness. Weakness. Blurry vision. Sensitivity to light. Hearing difficulties. Mental and emotional symptoms Memory difficulties. Difficulty with concentration. Difficulty sleeping or staying asleep. Feeling irritable. Anxiety or depression. Difficulty learning new things. How is this diagnosed? This condition may be diagnosed based on: Your symptoms. A description of your injury. Your medical history. Your health care provider may order other tests such as: Brain function tests (neurological testing). CT scan. How is this treated? Treatment for this condition may depend on your symptoms. Symptoms usually go away on their own over time. Treatments may include: Medicines for headaches. Resting your brain and body for a few days after your injury. Rehabilitation therapy, such as: ?Physical or occupational therapy. This may include exercises to help with balance and dizziness. ?Mental health counseling. ?Speech therapy. ?Vision therapy. A brain and pst specialist can recommend treatments for vision problems. Follow these instructions at home: Medicines Take bupp-ogq-ydboejp and prescription medicines only as told by your health care provider. Avoid opioid prescription pain medicines when recovering from a concussion. Activity Limit your mental activities for the first few days after your injury, such as: ?Homework or job-related work. ?Complex thinking. ?Watching TV, and using a computer or phone. ?Playing memory games and puzzles. ?Gradually return to your normal activity level. If a certain activity brings on your symptoms, stop or slow down until you can do the activity without it triggering your symptoms. Limit physical activity, such as exercise or sports, for the first few days after a concussion. Gradually return to normal activity as told by your health care provider. ?If a certain activity brings on your symptoms, stop or slow down until you can do the activity without it triggering your symptoms. Rest. Rest helps your brain heal. Make sure you: ?Get plenty of sleep at night. Most adults should get at least 7 9 hours of sleep each night. ?Rest during the day. Take naps or rest breaks when you feel tired. Do not do high-risk activities that could cause a second concussion, such as riding a bike or playing sports. Having another concussion before the first one has healed can be dangerous. General instructions Do not drink alcohol until your health care provider says you can. Keep track of the frequency and the severity of your symptoms. Give this information to your healthcare provider. Keep all follow-up visits as directed by your health care provider. This is important. Contact a health care provider if: Your symptoms do not improve. You have another injury. Get help right away if you: Have a severe or worsening headache. Are confused. Have trouble staying awake. Pass out. Vomit. Have weakness or numbness in any part of your body. Have a seizure. Have trouble speaking. Summary Post-concussion syndrome is when symptoms that occur after a concussion last longer than normal. Symptoms usually go away on their own over time. Depending on your symptoms, you may need treatment, such as medicines or rehabilitation therapy. Rest your brain and body for a few days after your injury. Gradually return to activities, as told by your health care provider. Get plenty of sleep, and avoid alcohol and opioid pain medicines while recovering from a concussion. This information is not intended to replace advice given to you by your health care provider. Make sure you discuss any questions you have with your health care provider. Document Released: 04/09/2003 Document Revised: 08/10/2019 Document Reviewed: 11/22/2018 [employer] Patient Education 2020 [employer]. Follow Up Care 06/08/2022 11:24:45 With:[facility] Physical Therapy Department Address:Unknown When:06/11/2022 14:44:48 [facility]08-08-2022 Evaluation + Plan noteExtracted from: Title:ED Note Author:Uday Crouch PA-C te:06/08/22 Head injury (S09.90XA: Unspe cified injury of head, initial encounter) Post concussive syndrome (F07.81: Postconcussional syndrome) Orders: meclizine, 12.5 mg = 1 tab(s), Oral, TID, PRN for dizziness, # 20 tab(s), Refills(s) 0, Pharmacy: [facility], 154, cm, 06/08/22 11:30:00 EDT, Height/Length Dosing, 52, kg, 06/08/22 11:30:00 EDT, Weight Dosing meclizine, 12.5 mg = 1 tab(s), Tab, Oral, Once, Stop date 06/08/22 11:36:00 EDT, STAT, Start date 06/08/22 11:36:00 EDT, 06/08/22 11:36:[address] Head or Brain w/o Contrast [facility]07-29-2022 Evaluation note* Encounter Date Diagnosis Assessment Notes Treatment Notes Treatment Clinical Notes May, Hypothyroidism, unspecified (ICD-10 - E03.9) Lengthy 30+ minute discussion with patient regarding all of her symptoms. It would certainly be unusual for her to be fatigued because of the thyroid medication. I think it is certainly reasonable to trial off of the medication and we will simply recheck in 2 months for a level. She is agreeable to this. Therefore, pt to stop the med and we will recheck in 2 months.... May, Chronic fatigue (ICD-10 - R53.82) Due to issues, blake with acitivity _ I feel that she may benefit from cardiac testing - Pt to call with update or if she desires to pursue the testing. [employer] Other 07-26-2022 Hospital Discharge instructions Patient Education 05/26/2022 18:12:06 Head Injury, Adult Head Injury, Adult There are many types of head injuries. Head injuries can be as minor as a bump, or they can be a serious medical issue. More severe head injuries include: A jarring injury to the brain (concussion). A bruise (contusion) of the brain. This means there is bleeding in the brain that can cause swelling. A cracked skull (skull fracture). Bleeding in the brain that collects, clots, and forms a bump (hematoma). After a head injury, most problems occur within the first 24 hours, but side effects may occur up to 7 10 days after the injury. It is important to watch your condition for any changes. You may need to be observed in the emergency department or urgent care, or you may be admitted to the hospital. What are the causes? There are many possible causes of a head injury. A serious head injury may be caused by a car accident, bicycle or motorcycle accidents, sports injuries, and falls. What are the symptoms? Symptoms of a head injury include a contusion, bump, or bleeding at the site of the injury. Other physical symptoms may include: Headache. Nausea or vomiting. Dizziness. Feeling tired. Being uncomfortable around bright lights or loud noises. Seizures. Trouble being awakened. Fainting. Mental or emotional symptoms may include: Irritability. Confusion and memory problems. Poor attention and concentration. Changes in eating or sleeping habits. Anxiety or depression. How is this diagnosed? This condition can usually be diagnosed based on your symptoms, a description of the injury, and a physical exam. You may also have imaging tests done, such as a CT scan or MRI. How is this treated? Treatment for this condition depends on the severity and type of injury you have. The main goal of treatment is to prevent complications and to allow the brain time to heal. Mild head injury If you have a mild head injury, you may be sent home and treatment may include: Observation. A responsible adult should stay with you for 24 hours after your injury and check on you often. Physical rest. Brain rest. Pain medicines. Severe head injury If you have a severe head injury, treatment may include: Close observation. This includes hospitalization with frequent physical exams. Medicines to relieve pain, prevent seizures, and decrease brain swelling. Breathing support. This may include using a ventilator. Treatments to manage the swelling inside the brain. Brain surgery. This may be needed to: ?Remove a blood clot. ?Stop the bleeding. ?Remove a part of the skull to allow room for the brain to swell. Follow these instructions at home: Activity Rest and avoid activities that are physically hard or tiring. Make sure you get enough sleep. Limit activities that require a lot of thought or attention, such as: ?Watching TV. ?Playing memory games and puzzles. ?Job-related work or homework. ?Working on the computer, using social media, and texting. Avoid activities that could cause another head injury, such as playing sports, until your health care provider approves. Having another head injury, especially before the first one has healed, can bedangerous. Ask your health care provider when it is safe for you to return to your regular activities, including work or school. Ask your health care provider for a qkfz-dx-bvuu plan for gradually returning to activities. Ask your health care provider when you can drive, ride a bicycle, or use heavy machinery. Your ability to react may be slower after a brain injury. Do not do these activities if you are dizzy. Lifestyle Do not drink alcohol until your health care provider approves. Do not use drugs. Alcohol and certain drugs may slow your recovery and can put you at risk of further injury. If it is harder than usual to remember things, write them down. If you are easily distracted, try to do one thing at a time. Talk with family members or close friends when making important decisions. Tell your friends, family, a trusted colleague, and fruit and vegetable factory worker about your injury, symptoms, and restrictions. Have them watch for any new or worsening problems. General instructions Take vwnj-vlp-bfesfop and prescription medicines only as told by your health care provider. Have someone stay with you for 24 hours after your head injury. This person should watch you for any changes in your symptoms and be ready to seek medical help. Keep all follow-up visits as told by your health care provider. This is important. How is this prevented? Work on improving your balance and strength to avoid falls. Wear a seatbelt when you are in a moving vehicle. Wear a helmet when riding a bicycle, skiing, or doing any other sport or activity that has a risk of injury. If you drink alcohol: ?Limit how much you use to: ?0 1 drink a day for women. ?0 2 drinks a day for men. ?Be aware of how much alcohol is in your drink. In the [place] one drink equals one 12 oz bottle of beer (355 mL), one 5 oz glass of wine (148 mL), or one 1 oz glass of hard liquor (44 mL). Take safety measures in your home, such as: ?Removing clutter and tripping hazards from floors and stairways. ?Using grab bars in bathrooms and handrails by stairs. ?Placing non-slip mats on floors and in bathtubs. ?Improving lighting in dim areas. Get help right away if: You have: ?A severe headache that is not helped by medicine. ?Trouble walking or weakness in your arms and legs. ?Clear or bloody fluid coming from your nose or ears. ?Changes in your vision. ?A seizure. You lose your balance. You vomit. Your pupils change size. Your speech is slurred. Your dizziness gets worse. You faint. You are sleepier than normal and have trouble staying awake. Your symptoms get worse. These symptoms may represent a serious problem that is an emergency. Do not wait to see if the symptoms will go away. Get medical help right away. Call your local emergency services (911 in the [place] Do not drive yourself to the hospital. Summary Head injuries can be minor or they can be a serious medical issue requiring immediate attention. Treatment for this condition depends on the severity and type of injury you have. Ask your health care provider when it is safe for you to return to your regular activities, including work or school. Head injury prevention includes wearing a seat belt in a motor vehicle, using a helmet on a bicycle, limiting alcohol use, and taking safety measures in your home. This information is not intended to replace advice given to you by your health care provider. Make sure you discuss any questions you have with your health care provider. Document Released: 10/18/2006 Document Revised: 11/15/2019 Document Reviewed: 11/10/2019 [employer] Patient Education 2020 [employer] 05/26/2022 18:12:06 Cervical Sprain, Boxb-kw-Gbtj Cervical Sprain A cervical sprain is a stretch or tear in the tissues that connect bones (ligaments) in the neck. Most neck (cervical) sprains get better in 4 6 weeks. Follow these instructions at home: If you have a neck collar: Wear it as told by your doctor. Do not take off (do not remove) the collar unless your doctor says that this is safe. Ask your doctor before adjusting your collar. If you have long hair, keep it outside of the collar. Ask your doctor if you may take off the collar for cleaning and bathing. If you may take off the collar: ?Follow instructions from your doctor about how to take off the collar safely. ?Clean the collar by wiping it with mild soap and water. Let it air-dry all the way. ?If your collar has removable pads: ?Take the pads out every 1 2 days. ?Hand wash the pads with soap and water. ?Let the pads air-dry all the way before you put them back in the collar. Do not dry them in a clothes dryer. Do not dry them with a chair lift operator. ?Check your skin under the collar for irritation or sores. If you see any, tell your doctor. Managing pain, stiffness, and swelling Use a cervical traction device, if told by your doctor. If told, put heat on the affected area. Do this before exercises (physical therapy) or as often as told by your doctor. Use the heat source that your doctor recommends, such as a moist heat pack or aheating pad. ?Place a towel between your skin and the heat source. ?Leave the heat on for 20 30 minutes. ?Take the heat off (remove the heat) if your skin turns bright red. This is very important if you cannot feel pain, heat, or cold. You may have a greater risk of getting burned. Put ice on the affected area. ?Put ice in a plastic bag. ?Place a towel between your skin and the bag. ?Leave the ice on for 20 minutes, 2 3 times a day. Activity Do not drive while wearing a neck collar. If you do not have a neck collar, ask your doctor if it is safe to drive. Do not drive or use heavy machinery while taking prescription pain medicine or muscle relaxants, unless your doctor approves. Do not lift anything that is heavier than 10 lb (4.5 kg) until your doctor tells you that it is safe. Rest as told by your doctor. Avoid activities that make you feel worse. Ask your doctor what activities are safe for you. Do exercises as told by your doctor or physical therapist. Preventing neck sprain Practice good posture. Adjust your workstation to help with this, if needed. Exercise regularly as told by your doctor or physical therapist. Avoid activities that are risky or may cause a neck sprain (cervical sprain). General instructions Take kqxh-lxl-tuscsjt and prescription medicines only as told by your doctor. Do not use any products that contain nicotine or tobacco. This includes cigarettes and e-cigarettes. If you need help quitting, ask your doctor. Keep all follow-up visits as told by your doctor. This is important. Contact a doctor if: You have pain or other symptoms that get worse. You have symptoms that do not get better after 2 weeks. You have pain that does not get better with medicine. You start to have new, unexplained symptoms. You have sores or irritated skin from wearing your neck collar. Get help right away if: You have very bad pain. You have any of the following in any part of your body: ?Loss of feeling (numbness). ?Tingling. ?Weakness. You cannot move a part of your body (you have paralysis). Your activity level does not improve. Summary A cervical sprain is a stretch or tear in the tissues that connect bones (ligaments) in the neck. If you have a neck (cervical) collar, do not take off the collar unless your doctor says that this is safe. Put ice on affected areas as told by your doctor. Put heat on affected areas as told by your doctor. Good posture and regular exercise can help prevent a neck sprain from happening again. This information is not intended to replace advice given to you by your health care provider. Make sure you discuss any questions you have with your health care provider. Document Released: 04/05/2009 Document Revised: 02/07/2020 Document Reviewed: 06/29/2017 [employer] Patient Education 2020 [employer]. Follow Up Care 05/26/2022 16:32:54 With:SUHA GREWAL Address: [facility] DASHA HERNANDEZ [place] [phone] Business (1) When:05/29/2022 17:48:06 [facility]06-09-2022 Evaluation note* Encounter Date Diagnosis Assessment Notes Treatment Notes Treatment Clinical Notes Apr, Vitamin D deficiency (ICD-10 - E55.9) Pt to consider restarting, based on slight low level at last bloodwork. Apr, Hypothyroidism, unspecified (ICD-10 - E03.9) eRX sent. No change. Excellent control seen on current blood work. Apr, Dizziness (ICD-10 - R42) Lengthy discussion with patient today that I really think this is indeed an issue with aging. We discussed the pathophysiology of these concerns, and the fact that the cardiovascular system cannot react as quickly as it did when we are younger. Therefore she needs to just be mindful of trying to get up and move too quickly. She voices agreement and understanding. The fact that all other testing was negative through neurology certainly is reassuring. [employer] Other 05-10-2022 Evaluation + Plan note Diagnostic Tests Pending * SARS-CoV-2 Antibody, IgG [facility]22 [facility]ments Appointment Date:02/24/2023 11:30:00 AM Scheduled Provider: Location:[facility] Appointment Type:MA Screen ([facility]) Diagnostic Tests Pending * SARS-CoV-2 Antibody, IgG 02/18/23 Future Scheduled Tests Radiology* MA Mamm Screen w/CAD if perf and 3D Scott 02[facility]23 [facility] noteNo InformationN[facility] Flexenclosure Other Evaluation noteNo assessment information available [facility] Work Phone: History general Narrative - Reported* Type Description Date Medical History Hypothyroid Medical History 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 Medical History Absent Right Kidney - from Medical History Vitamin D deficiency Medical History 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 Medical History Hx Melanoma right upper arm Medical History COVID - 12/2020 Surgical History T+A Surgical History Appy Surgical History Ovarian Cyst Surgical History Hyster 1973 Surgical History Hemmorhoids Surgical History Lung biopsy - histoplasmosis 20 07 Surgical History Bronchoscopy with br onchial washings and mediastinscopywith biopsy x 6 02/08/2008 Surgical History Melanoma removed right upper ar m 2014 Surgical History Cataract - Both eyes 2016(?) Hospitalization History [facility] Hospitalization History Hemmorhoidectomy Hospitalization History with childbirth [employer] Other History general Narrative - Reported* Type Description Date Medical History Hypothyroid Medical History 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 Medical History Absent Right Kidney - from Medical History Vitamin D deficiency Medical History 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 Medical History Hx Melanoma right upper arm Medical History COVID - 12/2020 Surgical History T+A Surgical History Appy Surgical History Ovarian Cyst Surgical History Hyster 1973 Surgical History Hemmorhoids Surgical History Lung biopsy - histoplasmosis 20 07 Surgical History Bronchoscopy with br onchial washings and mediastinscopywith biopsy x 6 02/08/2008 Surgical History Melanoma removed right upper ar m 2014 Surgical History Cataract - Both eyes 2016(?) Surgical History ganglion cyst, left foot 04/2023 Hospitalization History Hyster Hospitalization History Hemmorhoidectomy Hospitalization History with childbirth [employer] Other Hospital course Narrative No data available for this section [facility] No data available for this section [facility] No data available for this section [facility] Chief Complaint and Reason for Visit Chief Complaint neck pain Advance Directives Advance Directive Response Recorded Date/ Time Advance Directives No January 31 1:03pm Advance Directive Response Recorded Date/ Time Advance Directives No January 31 12:03pm Summary Purpose Family History No Family History Records Found No data available for this section No data available for this section No data available for this section No Family History Records Found Additional Source Comments REASON FOR VISIT (unrecogniz ed section and content) [facility] fall and hit her head, on wednesday she had puppy on leash and was going to mailbox- pt's neighbor brought dog down not on leash and came after her dog and she fell backwards, head hitting sidewalk- rest of body hit the grass- she said CT of head/ neck- she was told that testing was normal (neck pain/stiff neck and headache still), this is her main concern today, as she is feeling better from fall--pt did some research on side effects of synthroid-- she feels like she has alot of these sx's..hoarseness/ lightheadedness/ weakness (feels like when walking she could just fall down), she has been taking the synthroid every other day for last four days.. she is wanting to wean off totally for a bit to see if sx's go away.. and says maybe he can then rx me something else then if i need it [facility] Acute Illnesshospital follow up, patient reports 2 ER visits post fall, d/t equilibrium-- she said the second time she went to ER, they gave her a choice to stay, and opted to go home- dx was concussion-- imaging was normal of her brain- her head feels big and thinks it may be stemming from her neck.. very stiff and cracks sometimes- wants to discuss starting PT here in our bldg., pt reports not much hoarseness since she stopped the synthroidordering thyroid labsMedication concernsrefill- [facility] follow upPodiatry Referral ReqPodiatry Pre-surgery Questionlabs/ [facility] status update Care Team (unrecognized sect ion and content) Team Status: Inactive Member Role Status Dates Suha Grewal DO Primary Care Provider, Attending Provider Active Team Status: Active Member Role Status Dates Suha Grewal DO Primary Care Provider Active Team Status: Inactive Member Role Status Dates Suha Grewal DO Primary Care Provider Active Glory Blake MD Attending Provider Active Goals (unrecognized section and content) Goals may be documented in a n alternate section INFORMATION SOURCE (unrecogn ized section and content) DATE CREATED AUTHOR 12/02/2022 [facility] DATE CREATED AUTHOR AUTHOR'S IFEANYIIZ ATION 10/12/2023 [facility] FOR RECORDS PERTAINING TO PATIENTS WHO ARE OR HAVE BEEN ENROLLED IN A CHEMICAL DEPENDENCY/SUBSTANCEABUSE PROGRAM, SOME INFORMATION MAY BE OMITTED. This clinical summary was aggregated from multiple sources. Caution should be exercised in using it in the provision of clinical care. This summary normalizes information from multiple sources, and as a consequence, information in this document may materially change the coding, format and clinical context of patient data. In addition, data may be omitted in some cases. CLINICAL DECISIONS SHOULD BE BASED ON THE PRIMARY CLINICAL RECORDS. [employer] [facility]. provides no warranty or guarantee of the accuracy or completeness of information in this document.
== END 2023-11-02 10:30 | disposition home or self-care (01) ==
LOC: WC 10:29
PROVIDERS: PCP Family Medicine; Visit Provider Podiatrist Foot & Ankle Surgery
DX: T81.89XA Other complications of procedures, not elsewhere classified, initial encounter (principal)
CPT/HCPCS: G0463